=== PATIENT | female | born 1965 | race Caucasian/White ===

== ENCOUNTER 2019-05-26 19:29 | Inpatient (IN) | payer OTHER ==
[2019-05-26] MEDS ORDERED: Pantoprazole 40 MG Vial IVPUSH ONE (20:17)
[2019-05-26] MEDS: Dextrose 5%-Lactated Ringers 1,000 ML IV SCH (20:53)
[2019-05-26] MEDS: HYDROmorphone 1 MG/ML Syringe IVPUSH PRN (20:57)
[2019-05-26] MEDS: Ondansetron 4 MG/2 ML SDV IVPUSH PRN (22:20)
[2019-05-27] MEDS: Dextrose 5%-Lactated Ringers 1,000 ML IV SCH ×2 (03:19→22:59)
[2019-05-27] MEDS: HYDROmorphone 1 MG/ML Syringe IVPUSH PRN ×7 (03:23→22:55)
[2019-05-27] MEDS ORDERED: Meropenem 500 MG SDV ONE (04:59)
[2019-05-27] MEDS ORDERED: cefOXitin 2 GM in Sodium Chloride 0.9% 50 ML IV ONE (05:30)
[2019-05-27] MEDS ORDERED: Neostigmine Methylsulfate 1 MG/ML 5 ML Syringe ONE (05:45)
[2019-05-27] MEDS ORDERED: Propofol 200 MG/20 ML SDV ONE ×2 (05:45→07:00)
[2019-05-27] MEDS ORDERED: Succinylcholine 200 MG/10 ML MDV ONE (05:45)
[2019-05-27] MEDS ORDERED: Glycopyrrolate 0.2 MG/ML 5 ML MDV ONE (05:45)
[2019-05-27] MEDS ORDERED: Dexamethasone 4 MG/ML SDV ONE (05:45)
[2019-05-27] MEDS ORDERED: Ondansetron 4 MG/2 ML SDV ONE (05:45)
[2019-05-27] MEDS ORDERED: Rocuronium 50 MG/5 ML Vial ONE (05:45)
[2019-05-27] MEDS ORDERED: fentaNYL 250 MCG/5 ML SDV ONE ×2 (05:46→06:16)
[2019-05-27] MEDS ORDERED: Lactated Ringers 1,000 ML ONE (06:44)
[2019-05-27] MEDS ORDERED: Bupivacaine 0.5%/EPINEPHrine 1:200,000 50 ML MDV ONE (07:05)
[2019-05-27] MEDS ORDERED: hydrOXYzine HCl 100 MG/2 ML SDV IM ONE (07:37)
[2019-05-27] MEDS ORDERED: fentaNYL 100 MCG/2 ML SDV IVPUSH ONE ×2 (07:48→08:00)
[2019-05-27] MEDS: Ondansetron 4 MG/2 ML SDV IVPUSH PRN ×4 (08:27→22:53)
[2019-05-27] MEDS ORDERED: HYDROmorphone 0.5 MG/0.5 ML Syringe IVPUSH PRN (09:16)
[2019-05-27] MEDS ORDERED: Labetalol 20 MG/4 ML Syringe IVPUSH PRN (09:18)
[2019-05-27] MEDS ORDERED: hydrOXYzine HCl 100 MG/2 ML SDV IM PRN (09:18)
[2019-05-27] MEDS ORDERED: Metoclopramide 10 MG/2 ML SDV IVPUSH PRN (09:18)
[2019-05-27] MEDS ORDERED: diphenhydrAMINE 50 MG/ML SDV IVPUSH PRN (09:18)
[2019-05-27] MEDS ORDERED: Pantoprazole 40 MG Vial IVPUSH SCH (10:00)
[2019-05-27] MEDS: Lisinopril 10 MG Tab PO SCH (10:15)
[2019-05-27] MEDS: Magnesium Sulfate/Water 2 GM in Premix Bag 1 BAG IV SCH ×3 (10:16→22:47)
[2019-05-27] MEDS: Heparin Sodium 5,000 Units/ML Vial SUBCUT SCH ×2 (10:16→22:49)
[2019-05-27] MEDS: Celecoxib 200 MG Cap PO SCH (10:17)
[2019-05-27] MEDS: Acetaminophen 325 MG Tab PO SCH ×3 (12:21→22:49)
[2019-05-27] MEDS: cefOXitin 2 GM in Sodium Chloride 0.9% 50 ML IV SCH ×2 (12:21→18:35)
[2019-05-27] MEDS ORDERED: MVI, Adult with Vitamin K 10 ML, Thiamine 200 MG, Chromium/Copper/Mang/Selen/Zn 1 ML in... IV SCH ×4 (16:00)
[2019-05-28] MEDS: cefOXitin 2 GM in Sodium Chloride 0.9% 50 ML IV SCH (00:14)
[2019-05-28] MEDS: HYDROmorphone 1 MG/ML Syringe IVPUSH PRN ×2 (02:28→06:38)
[2019-05-28] MEDS ORDERED: Iopamidol 612 MG/ML 50 ML SDV PO STA (02:37)
[2019-05-28] MEDS: Acetaminophen 325 MG Tab PO SCH ×4 (03:28→21:01)
[2019-05-28] MEDS: Magnesium Sulfate/Water 2 GM in Premix Bag 1 BAG IV SCH ×4 (03:30→21:01)
--- NOTE | 2019-05-28 04:40 | CRLCR ---
Indication: Status post small bowel resection Technique: Three views of the abdomen obtained following the administration of oral contrast. Comparison: None available Findings/Impression : Apparent gastrojejunostomy. Contrast opacifies the distal esophagus and gastrojejunostomy, extending into a mildly prominent proximal jejunal segment. No evidence of contrast extravasation. Multiple gas-filled bowel segments which could represent ileus. If obstruction is suspected, follow-up. Small focal lucency underlying the medial right hemidiaphragm may be related to lung parenchyma or small extraluminal gas. Left lower abdominal bowel sutures. Anterior abdominal skin alba. Dictated by Raghavendra Charles MD @ 05/28/2019 4:39:40 AM Dictated by: Raghavendra Charles MD @ 05/28/2019 04:39:44 (Electronically Signed)
[2019-05-28] MEDS: Dextrose 5%-Lactated Ringers 1,000 ML IV SCH ×2 (05:14→10:35)
[2019-05-28] MEDS: Ondansetron 4 MG/2 ML SDV IVPUSH PRN (06:37)
[2019-05-28] MEDS ORDERED: Ondansetron 4 MG Tab.DIS PO PRN (08:00)
[2019-05-28] MEDS: Celecoxib 200 MG Cap PO SCH (08:26)
[2019-05-28] MEDS: Lisinopril 10 MG Tab PO SCH (08:27)
[2019-05-28] MEDS ORDERED: Hydrochlorothiazide 25 MG Tab PO SCH ×2 (09:00)
[2019-05-28] MEDS ORDERED: Lisinopril 20 MG Tab PO SCH (09:00)
[2019-05-28] MEDS: SCOPOLAMINE PATCH CHECK TOP SCH (09:39)
[2019-05-28] MEDS: HYDROmorphone 2 MG Tab PO PRN ×3 (09:49→20:59)
--- NOTE | 2019-05-28 11:20 | PN ---
DATE OF SERVICE: 05/28/2019 SUBJECTIVE: Melisa is postoperative day 1. She states her pain is controlled. She has been up ambulating. Remainder of review of systems negative for any pertinent positives and negatives. Oral intake was 780 and urine output is 1335. OBJECTIVE: GENERAL: Melisa Stark is a 54-year-old female. Color pale. Alert and orientated. VITAL SIGNS: TPR 98.3, 89, 16, blood pressure 121/69. HEENT: Negative. NECK: Supple. HEART: Regular rate and rhythm. LUNGS: Clear. ABDOMEN: Aquacel dressing intact. Abdominal binder is on. EXTREMITIES: Without peripheral edema. ASSESSMENT: Exploratory laparotomy with revision of the jejunojejunostomy. Date of surgery 05/27/2019. Surgeon, Parrish Escobar MD. PLAN: 1. Discontinue IV Dilaudid. 2. Dilaudid 2 mg, 1 to 2 every 4 hours p.r.n. pain. 3. Decrease IV to 100 mL per hour. 4. May shower. 5. Restart lisinopril 10 mg p.o. daily. 6. Hydrochlorothiazide 25 mg p.o. daily. 7. Good pulmonary toilet. 8. We will evaluate p.r.n. or in a.m. Ana Pearson PA-C /[id number]
[2019-05-28] MEDS: Heparin Sodium 5,000 Units/ML Vial SUBCUT SCH ×2 (11:24→21:00)
[2019-05-28] MEDS: Pantoprazole 40 MG Tab.CR PO SCH (11:33)
[2019-05-28] MEDS ORDERED: MVI, Adult with Vitamin K 10 ML, Thiamine 200 MG, Chromium/Copper/Mang/Selen/Zn 1 ML in... IV SCH ×4 (16:00)
[2019-05-29] MEDS: HYDROmorphone 2 MG Tab PO PRN ×4 (01:07→20:47)
[2019-05-29] MEDS: Dextrose 5%-Lactated Ringers 1,000 ML IV SCH (02:25)
[2019-05-29] MEDS: Acetaminophen 325 MG Tab PO SCH ×4 (04:46→21:30)
[2019-05-29] MEDS: Magnesium Sulfate/Water 2 GM in Premix Bag 1 BAG IV SCH ×3 (04:47→15:30)
[2019-05-29] MEDS ORDERED: Magnesium Hydroxide 400 MG/5 ML Susp 30 ML Cup PO ONE (08:00)
[2019-05-29] MEDS: Celecoxib 200 MG Cap PO SCH (08:09)
[2019-05-29] MEDS: Pantoprazole 40 MG Tab.CR PO SCH (08:09)
[2019-05-29] MEDS ORDERED: Bisacodyl 5 MG Tab PO ONE (09:00)
[2019-05-29] MEDS ORDERED: Cyanocobalamin (Vitamin B12) 1,000 MCG/ML SDV IM ONE (09:00)
--- NOTE | 2019-05-29 09:15 | PN ---
DATE OF SERVICE: 05/29/2019 SUBJECTIVE: Melisa states that her pain is controlled with oral pain medication. She has been up ambulating. Vital signs have been stable. Oral intake 1180. Urine output 2650. She is not passing any flatus. REVIEW OF SYSTEMS: Remainder of review of systems negative for any pertinent positives and negatives. OBJECTIVE: GENERAL: Melisa Stark is a pleasant 54-year-old female. VITAL SIGNS: TPR is 96.9, 82, 16. Blood pressure 88/53. HEENT: Negative. NECK: Supple. HEART: Regular rate and rhythm. LUNGS: Clear. ABDOMEN: Dressing is dry and intact. Abdominal binder is on. EXTREMITIES: Without peripheral edema. ASSESSMENT: Exploratory laparotomy with: 1. Revision of the jejunojejunostomy component of the Macy-en-Y gastric bypass surgery. 2. Placement of Interceed mesh for small bowel obstruction secondary to intussusception of the jejunojejunostomy and extensive intraabdominal adhesions. Date of surgery 05/27/2019. Surgeon, Parrish Escobar MD. PLAN: 1. Hold lisinopril. 2. Hold HCTZ. 3. Increase diet to step-2 gastric bypass diet without cereals. 4. Milk of Magnesia 30 mL. 5. Dulcolax 2 tabs 1 hour after Milk of Magnesia. 6. No straws. 7. Good pulmonary toilet. 8. We will evaluate p.r.n. or in a.m. Ana Pearson PA-C /[id number]
[2019-05-29] MEDS: SCOPOLAMINE PATCH CHECK TOP SCH (09:42)
[2019-05-29] MEDS: Heparin Sodium 5,000 Units/ML Vial SUBCUT SCH (10:05)
[2019-05-30 03:26] VITALS: PULSE 71
[2019-05-30] MEDS: Acetaminophen 325 MG Tab PO SCH (03:27)
[2019-05-30 07:57] VITALS: BP 97/62
[2019-05-30] MEDS: Celecoxib 200 MG Cap PO SCH (08:01)
[2019-05-30] MEDS: HYDROmorphone 2 MG Tab PO PRN (08:01)
[2019-05-30] MEDS: Pantoprazole 40 MG Tab.CR PO SCH (08:01)
--- NOTE | 2019-05-30 09:39 | DISCH ---
ADMISSION DIAGNOSES: 1. Partial small bowel obstruction. 2. Status post Macy-en-Y gastric bypass surgery. 3. Unspecified surgical malabsorption. 4. B12 deficiency. 5. Iron deficiency anemia. 6. Vitamin D deficiency. 7. Hypertension. DISCHARGE DIAGNOSES: Exploratory laparotomy with: 1. Revision of the jejunojejunostomy component of the Macy-en-Y gastric bypass surgery. 2. Placement of Interceed mesh for small bowel obstruction secondary to intussusception of the jejunojejunostomy and extensive intraabdominal adhesions. Date of surgery 05/27/2019. Surgeon, Parrish Escobar MD. HISTORY: Melisa is a pleasant 54-year-old female, who developed sudden onset of severe abdominal pain. She went to the nearest emergency room and was transferred to [place], [place]. After preoperative evaluation and discussion of possible risks and possible complications, she wished to proceed with surgical procedure. HOSPITAL COURSE: Surgery was on 05/27/2019. There were no complications. On postoperative day #1, she was started on oral pain medication. IV was discontinued. Lisinopril- hydrochlorothiazide was restarted. On postoperative day 2, blood pressure was low, so lisinopril and HCTZ was held, just started on step 2 diet without cereal, given milk of Mag with Dulcolax followed in 1 hour by Dulcolax suppositories. On postoperative day 3, she is ready to be discharged to home, is going to be staying with her sister. Has not had a bowel movement yet, but feels like she is passing gas and feels like she will be having a bowel movement shortly. Feels like she needs to go home due to family issues. She did agree to take some MiraLAX when she gets home and she is very compliant. PHYSICAL EXAMINATION: GENERAL: Melisa Stark is a 54-year-old female. VITAL SIGNS: Height is 5 feet 6.93 inches. TPR 97, 73, 16. Blood pressure 97/62. HEENT: Negative. NECK: Supple. HEART: Regular rate and rhythm. LUNGS: Clear. ABDOMEN: Cely intact. Abdominal binder is on. EXTREMITIES: Without peripheral edema. DISPOSITION: Discharged to home. CONDITION: Stable and improving. FOLLOWUP APPOINTMENT: With Ana Pearson PA-C, 06/08/2019 at 9:30 a.m. HOME MEDICATIONS: 1. Tylenol 650 mg q.6 hours p.r.n. pain. 2. Celebrex 200 mg p.o. daily, #14. 3. Dilaudid 2 mg oral q.4 hours p.r.n. pain, #42. Hold lisinopril and HCTZ and will need to follow up with primary care provider in regard to restarting these. She will get her blood pressure checked as needed. To continue taking probiotic one daily, magnesium oxide 400 mg daily, and stop taking the vitamins and supplements after first postoperative appointment. DIET: Step-3 gastric bypass diet after bowel movement. Drink 8 to 10 glasses of water a day. ACTIVITY: As tolerated. No lifting greater than 10 pounds for 6 weeks. DRIVING: Do not drive for 1 week and while on pain medication. SHOWER/BATHING: May shower. Notify provider if any fever, increased pain, nausea, or vomiting. Keep site clean and dry. Wear abdominal binder for 6 weeks and then as tolerated. SPECIAL INSTRUCTION: 1. Use incentive spirometer 10 times every hour while awake for 1 week. 2. Take MiraLAX 119 g when you get home. If no BM, then repeat at night.
--- NOTE | 2019-06-04 13:38 | OR ---
DATE OF PROCEDURE: 05/27/2019 SURGEON: Parrish Escobar MD PREOPERATIVE DIAGNOSES: 1. Small bowel obstruction secondary to intussusception at jejunojejunostomy component of Macy-en-Y gastric bypass. 2. Extensive intraabdominal adhesions. OPERATIVE PROCEDURE: Exploratory laparotomy with: 1. Revision of jejunojejunostomy component of Macy-en-Y gastric bypass (59505). 2. Placement of Interceed mesh to limit recurrent adhesion formation between pelvic, abdominal wall, and underlying viscera (63548). ANESTHESIA: General. INDICATION FOR PROCEDURE: This is a 54-year-old status post previous Macy-en-Y gastric bypass, presenting with chronic crampy abdominal pain in the postprandial period, along with bloating. Overall picture is highly suggestive of a partial small bowel obstruction. The plan is to proceed with limited open laparotomy with lysis of adhesions and bowel resection as indicated. Potential risks including bleeding, infection, injury to underlying viscera, problems with symptoms of bowel obstruction recurring, as well as remote possibility of cardiopulmonary, septic, or hemorrhagic complications leading to were discussed, and the patient wishes to proceed. DETAILS OF PROCEDURE: The patient was taken to the operating room. After general endotracheal anesthesia was induced, a Oquendo catheter was inserted, and the abdomen prepped and draped. An upper midline incision from the umbilicus roughly a handsbreadth toward the umbilicus was made and carried down through the skin and subcutaneous tissue and through the full-thickness of the abdominal wall. Upon entering the peritoneal cavity, there were some scattered adhesions between the anterior abdominal wall, omentum, and some small bowel. These were taken down. When I inspected the small bowel anatomy, the area of the jejunojejunostomy related to the previous Macy-en-Y gastric bypass was markedly dilated and appeared to likely have been undergoing intermittent intussusception and resulted in considerable edema and dilation of the bowel at that level. At this point, the decision was made to proceed with revision of that anastomosis. The 3 components of the anastomosis were then divided with SHEKHAR alba, as was the underlying mesentery. At this point, GI tract continuity via revised jejunojejunostomy was accomplished with initial internal firing of the SHEKHAR stapler between the end of the bowel that had been the biliopancreatic limb to the common limb. This was accomplished with internal firing of 60 mm SHEKHAR stapler. Common opening was closed transversely with the same stapler. The angles were anastomosed and mesenteric defect was approximated with 3-0 Vicryl stitch. GI tract continuity was then reestablished with a second anastomosis roughly 20 cm distal to the first anastomosis between the end of the Macy limb. This was accomplished with [id number] enteroenterostomy with 60 mm stapler, and the common opening likewise closed transversely with the same stapler. The angle of anastomosis and mesenteric defect were closed with 3-0 Vicryl stitch at the angle of the anastomosis and 2-0 silk stitch at the mesenteric defect to provide more permanency and further that fixation. The overall limb lengths did not change significantly with the jejunojejunostomy being, from a functional standpoint, moved only around 20 cm distal to the biliopancreatic limb/common limb junction. At this point, there were no further problems noted. There was no omentum to place underneath the pelvis and abdominal wall. Given this, the Interceed mesh was then placed across those areas to displace the small bowel from those surfaces to limit recurrent adhesion formation. The midline fascia was then approximated with #2 Vicryl stitch, subcutaneous tissue approximated with 3-0 Vicryl stitch deep and a 4-0 Vicryl subdermal stitch, and the skin with alba. Intraoperatively, the patient received bilateral transversus abdominis plane blocks, and also then had the fascia at the incision line injected with 0.5% Marcaine mixed with lidocaine. The patient was taken to the recovery room in satisfactory condition. There were no evident complications. Parrish Escobar MD /[id number]
== END 2019-05-30 10:50 | disposition home or self-care (01) | DRG 327 ==
LOC: JP.MS 19:29
PROVIDERS: ADMIT Surgery; ATTEND Physician Assistant Medical
PROC: 0D160ZA Bypass Stomach to Jejunum, Open Approach (ICD-10-PCS; principal; 2019-05-27)
PROC: 0DNW0ZZ Release Peritoneum, Open Approach (ICD-10-PCS; 2019-05-27)
PROC: 3E0M05Z Introduction of Adhesion Barrier into Peritoneal Cavity, Open Approach (ICD-10-PCS; 2019-05-27)
DX: K94.19 Other complications of enterostomy (principal); K56.1 Intussusception; K56.51 Intestinal adhesions [bands], with partial obstruction; K91.2 Postsurgical malabsorption, not elsewhere classified; E55.9 Vitamin D deficiency, unspecified; E53.8 Deficiency of other specified B group vitamins; D50.9 Iron deficiency anemia, unspecified; I10 Essential (primary) hypertension; Z98.84 Bariatric surgery status; Z87.891 Personal history of nicotine dependence; Z79.899 Other long term (current) drug therapy
CPT/HCPCS: 36415; 74240; 80053; 84100; 85025; 88307; 94762; A9270-GY; C9113; J0131; J0171; J0330; J0694; J1100; J1170; J1644; J2020; J2185; J2405; J2704; J2710; J2795; J3010; J3410; J3411; J3420; J3475; J3490; J7042; J7050; J7120; Q9967

== ENCOUNTER 2019-07-02 18:55 | Observation (INO) | payer OTHER ==
[2019-07-02] MEDS ORDERED: HYDROmorphone 0.5 MG/0.5 ML Syringe IVPUSH ONE ×2 (19:53→20:31)
[2019-07-02] MEDS ORDERED: Ondansetron 4 MG/2 ML SDV IVPUSH ONE (19:53)
[2019-07-02] MEDS ORDERED: Sodium Chloride 0.9% 1,000 ML IV SCH (20:00)
--- NOTE | 2019-07-02 20:01 | EDM.PDOC ---
ED HPI GENERAL MEDICAL PROBLEM - General Chief Complaint: Abdominal Pain Stated Complaint: SEVERE ABD PAIN POST SURGERY Time Seen by Provider: 07/02/19 19:45 Source of Information: Reports: Patient History Limitations: Reports: No Limitations - History of Present Illness INITIAL COMMENTS - FREE TEXT/NARRATIVE: 54-year-old female with a history of gastric bypass in 2013, had done well but developed abdominal pain one month ago and underwent surgery. She did well postoperatively until the last 2-3 days where she said an increased amount of pain, distention, and nausea. It's worse when she eats. She is still having bowel movements. Denies fevers or chills or difficulty breathing. Onset: Gradual Duration: Day(s): (Pain is worsened over the past 3-4 days) Location: Reports: Abdomen Quality: Reports: Ache, Pressure Improves with: Reports: None Worsens with: Reports: Eating, Movement Associated Symptoms: Reports: Loss of Appetite, Nausea/Vomiting. Denies: Shortness of Breath, Weakness Lower Abdomen Pain Score (Numeric/FACES): 7 - Related Data Allergies Allergy/AdvReac Type Severity Reaction Status Date / Time No Known Allergies Allergy Verified 09/06/15 07:33 Home Meds: Home Meds L.acidoph,Paracasei, B.lactis [Probiotic] 1 each PO DAILY 05/26/19 [History] Magnesium Oxide 400 mg PO DAILY 05/26/19 [History] Acetaminophen [Tylenol] 650 mg PO Q6H tablet 05/30/19 [Rx] Celecoxib [CeleBREX] 200 mg PO DAILY@0800 #14 cap 05/30/19 [Rx] HYDROmorphone [Dilaudid] 2 mg PO Q4H PRN #42 tablet 05/30/19 [Rx] Ascorbic Acid [Vitamin C] 500 mg PO DAILY 07/02/19 [History] Cholecalciferol (Vitamin D3) [Vitamin D] 5,000 unit PO DAILY 07/02/19 [History] Naltrexone 50 mg PO TID 07/02/19 [History] buPROPion [Wellbutrin] 75 mg PO TID 07/02/19 [History] Past Medical History HEENT History: Reports: Cataract Cardiovascular History: Reports: Hypertension Respiratory History: Reports: None Gastrointestinal History: Reports: Celiac Disease, Chronic Diarrhea Other Gastrointestinal History: RECENT DIAGNOSIS GLUTEN ALLERGY Genitourinary History: Reports: None [employer] History: Reports: Musculoskeletal History: Reports: Osteoarthritis - Infectious Disease History Infectious Disease History: Reports: Chicken Pox, Measles, Mumps - Past Surgical History HEENT Surgical History: Reports: None GI Surgical History: Reports: Bariatric Procedure Social & Family History - Family History Family Medical History: Noncontributory - Tobacco Use Smoking Status *Q: Former Smoker Used Tobacco, but Quit: Yes Month/Year Tobacco Last Used: 30 years ago - Caffeine Use Caffeine Use: Reports: Coffee Caffeine Use Comment: 2 pots of coffee - Recreational Drug Use Recreational Drug Use: No ED ROS GENERAL - Review of Systems Review Of Systems: See Below Constitutional: Denies: Fever, Chills HEENT: Reports: No Symptoms Respiratory: Denies: Shortness of Breath Cardiovascular: Denies: Chest Pain GI/Abdominal: Reports: Abdominal Pain, Nausea. Denies: Diarrhea, Vomiting : Reports: No Symptoms Skin: Reports: No Symptoms Neurological: Reports: No Symptoms ED EXAM, GI/ABD - Physical Exam Exam: See Below Exam Limited By: No Limitations General Appearance: Alert, Mild Distress Eyes: Bilateral: Normal Appearance (No jaundice) Head: Atraumatic Respiratory/Chest: No Respiratory Distress, Lungs Clear Cardiovascular: Regular Rate, Rhythm GI/Abdominal Exam: Tender (Diffuse tenderness to palpation with guarding), Abnormal Bowel Sounds (Hypoactive bowel sounds) Extremities: No Pedal Edema Neurological: Alert, Oriented Psychiatric: Anxious Skin Exam: Warm, Dry Course - Vital Signs Last Recorded V/S: Last Vital Signs Temp 96.7 F 07/03/19 03:09 Pulse 83 07/03/19 03:09 Resp 18 07/03/19 03:09 BP 102/64 07/03/19 03:09 Pulse Ox 92 L 07/03/19 03:09 - Orders/Labs/Meds Orders: Active Orders 24 hr Category Date Time Status Sodium Chloride 0.9% [Normal Saline] 82 ml Med 07/02/19 20:45 Active IV ASDIRECTED Medication Orders Hydromorphone HCl (Dilaudid) 1 mg IVPUSH Q4H PRN PRN Reason: Pain Last Admin: 07/03/19 03:07 Dose: 1 mg Admin: 07/02/19 23:41 Dose: 1 mg Sodium Chloride (Normal Saline) 82 mls @ 3 mls/sec IV ASDIRECTED [facility]ENIE Last Admin: 07/02/19 20:49 Dose: 3 mls/sec Dextrose/Lactated Ringer's (Dextrose 5%-Lactated Ringers) 1,000 mls @ 150 mls/ hr IV ASDIRECTED [facility] Metoclopramide HCl (Reglan) 10 mg IVPUSH Q6H [facility] Last Admin: 07/02/19 23:41 Dose: 10 mg Ondansetron HCl (Zofran) 4 mg IV Q4H PRN PRN Reason: Nausea/Vomiting Pantoprazole Sodium (Protonix Iv) 40 mg IVPUSH Q12H [facility] Last Admin: 07/02/19 23:42 Dose: 40 mg Labs: Laboratory Tests 07/02/19 07/02/19 Range/Units 19:54 19:54 WBC 7.6 (4.5-11.0) K/uL RBC 3.65 (3.30-5.50) M/uL Hgb 11.2 L (12.0-15.0) g/dL Hct 35.4 L (36.0-48.0) % MCV 97 (80-98) fL MCH 31 (27-31) pg MCHC 32 (32-36) % Plt Count 96 L (150-400) K/uL Neut % (Auto) 36 (36-66) % Lymph % (Auto) 29 (24-44) % Foard % (Auto) 33 H (2-6) % Eos % (Auto) 3 (2-4) % Baso % (Auto) 0 (0-1) % Sodium 139 L (140-148) mmol/L Potassium 4.0 (3.6-5.2) mmol/L Chloride 104 (100-108) mmol/L Carbon Dioxide 23 (21-32) mmol/L Anion Gap 16.0 H (5.0-14.0) mmol/L BUN 19 H D (7-18) mg/dL Creatinine 0.7 (0.6-1.0) mg/dL Est Cr Clr Drug Dosing 87.27 mL/min Estimated GFR (MDRD) > 60 (>60) Glucose 91 (74-106) mg/dL Calcium 9.1 (8.5-10.1) mg/dL Total Bilirubin 0.5 (0.2-1.0) mg/dL AST 18 (15-37) U/L ALT 27 (12-78) U/L Alkaline Phosphatase 90 (46-116) U/L Total Protein 7.6 (6.4-8.2) g/dL Albumin 4.1 (3.4-5.0) g/dL Globulin 3.5 (2.3-3.5) g/dL Albumin/Globulin Ratio 1.2 (1.2-2.2) Lipase 103 (73-393) U/L Meds: Medications Generic Name Dose Route Start Last Admin Trade Name Forrest PRN Reason Stop Dose Admin Hydromorphone HCl 1 mg 07/02/19 23:12 07/03/19 03:07 Dilaudid IVPUSH 1 mg Q4H PRN Administration Pain Sodium Chloride 82 mls @ 3 mls/sec 07/02/19 20:45 07/02/19 20:49 Normal Saline IV 3 mls/sec ASDIRECTED [facility]EN[facility] Administration Dextrose/Lactated Ringer's 1,000 mls @ 150 mls/hr 07/02/19 23:15 Dextrose 5%-Lactated Ringers IV ASDIRECTED [facility] Metoclopramide HCl 10 mg 07/02/19 23:15 07/02/19 23:41 Reglan IVPUSH 10 mg Q6H [facility] Administration Ondansetron HCl 4 mg 07/02/19 23:07 Zofran IV Q4H PRN Nausea/Vomiting Pantoprazole Sodium 40 mg 07/02/19 23:15 07/02/19 23:42 Protonix Iv IVPUSH 40 mg Q12H [facility] Administration Discontinued Medications Generic Name Dose Route Start Last Admin Trade Name Forrest PRN Reason Stop Dose Admin Hydromorphone HCl 0.5 mg 07/02/19 19:53 07/02/19 20:06 Dilaudid IVPUSH 07/02/19 19:54 0.5 mg ONETIME ONE Administration Hydromorphone HCl 0.5 mg 07/02/19 20:31 07/02/19 20:35 Dilaudid IVPUSH 07/02/19 20:32 0.5 mg ONETIME ONE Administration Hydromorphone HCl 1 mg 07/02/19 21:18 07/02/19 21:23 Dilaudid IVPUSH 07/02/19 21:19 1 mg ONETIME ONE Administration Sodium Chloride 1,000 mls @ 500 mls/hr 07/02/19 20:00 07/02/19 20:05 Normal Saline IV 500 mls/hr ASDIRECTED [facility]ENIE Administration Iopamidol 138 ml 07/02/19 20:45 07/02/19 20:49 Isovue-300 (61%) IV 150 ml . DIRECTED QUEENIE Administration Ketorolac Tromethamine 30 mg 07/02/19 22:19 07/02/19 22:23 Toradol IVPUSH 07/02/19 22:20 30 mg ONETIME ONE Administration Ondansetron HCl 4 mg 07/02/19 19:53 07/02/19 20:06 Zofran IVPUSH 07/02/19 19:54 4 mg ONETIME ONE Administration Sodium Chloride 10 ml 07/02/19 20:33 07/02/19 20:49 Saline Flush FLUSH 07/02/19 20:34 10 ml ONETIME ONE Administration - Re-Assessments/Exams Free Text/Narrative Re-Assessment/Exam: 07/02/19 20:01 An IV was started, patient was given 0.5 mg of IV Dilaudid along with 4 mg of IV Zofran. CBC, CMP, lipase were obtained and the patient will get a CT scan of the abdomen possibly with contrast if kidney function is normal. 07/02/19 20:27 Labs returned reassuring, medications really didn't help with the pain much. She was given an additional 0.5 mg of IV Dilaudid and will be sent for an abdomen and pelvis CT with IV contrast. 07/02/19 21:41 CT shows prominent small bowel loops indicating a possible adynamic ileus. An additional 1 mg of IV Dilaudid was given, and Ana Pearson who is covering the surgical service of Dr. Pepito Escobar accepted her for admission. Departure - Departure Time of Disposition: 23:12 Disposition: Admitted As Inpatient 64 Condition: Fair Clinical Impression: Ileus, unspecified Abdominal pain Qualifiers: Abdominal location: generalized Qualified Code(s): R10.84 - Generalized abdominal pain - Discharge Information - My Orders Last 24 Hours: My Active Orders 07/02/19 20:45 Sodium Chloride 0.9% [Normal Saline] 82 ml IV ASDIRECTED - Assessment/Plan Last 24 Hours: My Active Orders 07/02/19 20:45 Sodium Chloride 0.9% [Normal Saline] 82 ml IV ASDIRECTED
[2019-07-02] MEDS: Sodium Chloride 0.9% 10 ML Syringe FLUSH ONE ×2 (20:36→20:49)
[2019-07-02] MEDS ORDERED: Iopamidol 612 MG/ML 150 ML Bottle IV SCH (20:45)
[2019-07-02] MEDS ORDERED: HYDROmorphone 1 MG/ML Syringe IVPUSH ONE (21:18)
--- NOTE | 2019-07-02 21:33 | CRLCT ---
INDICATION: Abdominal pain TECHNIQUE: Contrast enhanced helical CT of the abdomen pelvis with the intravenous administration 138 cc of Isovue -350. Sagittal and coronal reformats generated. COMPARISON: None. FINDINGS: 5 mm pulmonary nodule in the middle lobe. (Series 2, image 1). The liver, mildly prominent spleen and pancreas are unremarkable. No adrenal abnormalities are seen. Areas of cortical scarring or lobulation involving both kidneys with no solid mass is apparent. The nephrograms are symmetrical. The abdominal is normal in caliber. Prior gastric bypass. Considerably distended gallbladder without calculi appreciated. Formed stool is present within the colon. There are multiple fluid filled mildly prominent loops of small bowel which may indicate an adynamic ileus. No bladder masses are seen. Postoperative changes of the anterior abdominal wall. No suspicious osseous finding IMPRESSION: 1. Prior gastric bypass. There are prominent fluid-filled loops of small bowel which may be indicative of a generalized ileus. Repeat examination with oral contrast media may be beneficial in this regard. 2. Considerably distended gallbladder without calculi. If there are clinical findings suggest cholecystitis, consider gallbladder ultrasound. 3. 5 millimeter indeterminate pulmonary nodule in the middle lobe. In a low risk patient, no further workup is recommended. In a high risk patient, consider optional chest CT at 12 months. PLEASE NOTE THAT ALL CT SCANS AT THIS FACILITY USE DOSE MODULATION, ITERATIVE RECONSTRUCTION, AND/OR WEIGHT-BASED DOSING WHEN APPROPRIATE TO REDUCE RADIATION TO LOW REASONABLY ACHIEVABLE. Please note that all CT scans at this facility use dose modulation, iterative reconstruction, and/or weight-based dosing when appropriate to reduce radiation dose to as low as reasonably achievable. Dictated by Kendall Enriquez MD @ Jul 02 2019 9:20PM Signed by Dr. Kendall Enriquez @ Jul 02 2019 9:31PM
[2019-07-02] MEDS ORDERED: Ketorolac 30 MG/ML SDV IVPUSH ONE (22:19)
[2019-07-02] MEDS ORDERED: Ondansetron 4 MG/2 ML SDV IV PRN (23:07)
[2019-07-02] MEDS ORDERED: Pantoprazole 40 MG Vial IVPUSH SCH (23:15)
[2019-07-02] MEDS: Metoclopramide 10 MG/2 ML SDV IVPUSH SCH (23:41)
[2019-07-02] MEDS: HYDROmorphone 1 MG/ML Syringe IVPUSH PRN (23:41)
[2019-07-03] MEDS: HYDROmorphone 1 MG/ML Syringe IVPUSH PRN (03:07)
[2019-07-03] MEDS: Metoclopramide 10 MG/2 ML SDV IVPUSH SCH ×4 (04:48→23:35)
--- NOTE | 2019-07-03 05:28 | CRLCR ---
Indication: Small-bowel obstruction Technique: KUB 2 view Comparison: CT abdomen pelvis July 02, 2019 Findings/Impression: : Several loops of dilated small bowel reach maximum diameter 4.9 cm. Findings are concerning for small bowel obstruction. No free air pneumatosis. Residual intravenous contrast within the urinary tract collecting system. Dictated by Tricia Alvarado MD @ Jul 03 2019 5:24AM Signed by Dr. Tricia Alvarado @ Jul 03 2019 5:27AM
[2019-07-03] MEDS: Dextrose 5%-Lactated Ringers 1,000 ML IV SCH ×4 (06:16→21:22)
[2019-07-03] MEDS ORDERED: Acetaminophen 1,000 MG in Premix Bag 1 BAG IV ONE (09:00)
--- NOTE | 2019-07-03 09:39 | HP ---
CHIEF COMPLAINT: Melisa presented to the emergency room late last evening for severe abdominal pain, and the mid abdominal pain radiated to the left and radiated to the right mid abdominal quadrant. Pain started Saturday night, 06/29/2019, and occurred after eating. She became very "burpy," bloated, and severe sharp abdominal pain. If she did not eat, she had no pain, but as soon as eating even a small amount, she would develop this pain. Pain gradually increased to the point that it brought her into the emergency room last evening. HISTORY OF PRESENT ILLNESS: Melisa had an exploratory laparotomy with revision of jejunojejunostomy component of the Macy-en-Y gastric bypass and placement of Interceed mesh to limit recurrent adhesion formation between the pelvic and abdominal wall and underlying viscera for small bowel obstruction secondary to intussusception at the jejunojejunostomy component of the Macy-en-Y gastric bypass surgery and extensive intraabdominal adhesions. Date of surgery was 05/27/2019. Surgeon, Parrish Escobar M.D. Melisa states since her surgery, she did well, had no pain, bowel movements have been 2 per day, and denied any other associated signs and symptoms until 06/29/2019. PAST MEDICAL HISTORY: Includes Macy-en-Y gastric bypass surgery, unspecified surgical malabsorption, B12 deficiency, iron deficiency anemia, hypertension, celiac disease, allergy to gluten, and osteoarthritis. PAST SURGICAL HISTORY: Includes Macy-en-Y gastric bypass surgery. FAMILY HISTORY: Noncontributory. SOCIAL HISTORY: Single. Does not smoke. Alcohol, none; and quit smoking 30 years ago. REVIEW OF SYSTEMS: CONSTITUTIONAL: Denies any fever, chills, or night sweats, but does report fatigue. No weight loss. HEENT: Negative. RESPIRATORY: No cough. CARDIOVASCULAR: Denies any chest pain, shortness of breath, or fast or irregular heartbeat. No swelling in ankles or feet. : No UTI signs or symptoms. SKIN: No rash. NEURO: No headache, dizziness, or loss of coordination. PSYCHIATRIC: Controlled depression and anxiety. PHYSICAL EXAMINATION: GENERAL: Melisa is a pleasant 54-year-old female. VITAL SIGNS: Height is 5 feet 7 inches, weight is 202 pounds. BMI is 31. TPR is 96.7, 83, 18. Blood pressure is 102/64. HEENT: Negative. NECK: Supple. HEART: Regular rate and rhythm. LUNGS: Clear. ABDOMEN: Tenderness is noted in the left mid abdominal area radiating to the right mid; has the most pain on palpation, but she has generalized tenderness in all 4 quadrants. No extensive bloating is noted. EXTREMITIES: Without peripheral edema. NEURO: Intact. PSYCHIATRIC: Mood and affect appropriate. ASSESSMENT: Partial small bowel obstruction. PLAN: Dr. Juancho Lopez, surgeon, was consulted. He will evaluate and resume care today to check (DICTATION ENDS HERE) Ana Pearson PA-C /[id number]
[2019-07-03] MEDS ORDERED: fentaNYL 250 MCG/5 ML SDV ONE (10:15)
[2019-07-03] MEDS ORDERED: Rocuronium 50 MG/5 ML Vial ONE (10:16)
[2019-07-03] MEDS ORDERED: Ondansetron 4 MG/2 ML SDV ONE (10:16)
[2019-07-03] MEDS ORDERED: Glycopyrrolate 0.2 MG/ML 5 ML MDV ONE (10:16)
[2019-07-03] MEDS ORDERED: Neostigmine Methylsulfate 1 MG/ML 5 ML Syringe ONE (10:16)
[2019-07-03] MEDS ORDERED: Succinylcholine 200 MG/10 ML MDV ONE (10:16)
[2019-07-03] MEDS ORDERED: Dexamethasone 4 MG/ML SDV ONE (10:16)
[2019-07-03] MEDS ORDERED: Propofol 200 MG/20 ML SDV ONE (10:16)
[2019-07-03] MEDS ORDERED: Bupivacaine 0.5%/EPINEPHrine 1:200,000 50 ML MDV ONE (11:07)
[2019-07-03] MEDS: Pantoprazole 40 MG Vial IVPUSH SCH ×2 (11:22→23:36)
[2019-07-03] MEDS ORDERED: Ketorolac 60 MG/2 ML SDV ONE (12:14)
[2019-07-03] MEDS ORDERED: hydrOXYzine HCl 100 MG/2 ML SDV IM ONE (12:47)
[2019-07-03] MEDS ORDERED: Acetaminophen/HYDROcodone 325-5 MG Tab PO PRN (12:48)
--- NOTE | 2019-07-03 13:22 | PN ---
DATE OF SERVICE: 07/03/2019 SUBJECTIVE: The patient is unchanged. With respect to her abdominal pain, she states that it is masked by the narcotics, however, is still present. She is passing very small to no amount of gas. OBJECTIVE: VITAL SIGNS: Stable. CARDIOVASCULAR: Regular rhythm and rate. RESPIRATORY: Lungs are clear to auscultation bilaterally. ABDOMEN: Little pain with palpation. PLAN: To the operating room for diagnostic laparoscopy. Please see operating room note for further details. We discussed risks, benefits, alternatives, and limitations. Juancho Lopez MD /[id number]
--- NOTE | 2019-07-03 13:36 | OR ---
DATE OF PROCEDURE: 07/03/2019 SURGEON: Juancho Lopez MD PROCEDURE: Transversus abdominis plane block bilaterally. COMPLICATIONS: None. TALCER: None. RISKS: Risks, benefits, alternatives, and limitations including, not limited to infection, bleeding, injury to abdominal structures were explained to the patient, who wished to proceed. PROCEDURE IN DETAIL: The patient was placed in a supine position. The right side was addressed first. Using 11 megahertz ultrasound probe, the transversus plane was readily identified and the entire contents were injected in this area. Left side was then performed in a same manner, same fashion, same technique, in the same sequence using the same equipment, except for different needle and syringe. The patient tolerated the procedure well. Juancho Lopez MD /[id number]
--- NOTE | 2019-07-03 13:37 | CONS ---
DATE OF SERVICE: 07/02/2019 REFERRING PHYSICIAN: CONSULTING PHYSICIAN: Juancho Lopez MD REASON FOR CONSULTATION: Abdominal pain. HISTORY OF PRESENT ILLNESS: This is a pleasant 54-year-old female who presents to the emergency room with abdominal pain, which is quite diffuse. The patient is having bowel movements. However, her abdominal pain, states this is very similar to her previous internal hernia pain. This is made worse by eating. The patient has recently had small bowel obstruction secondary to intussusception on 05/27/2019. PAST MEDICAL HISTORY: Macy-en-Y, B12 deficiency, iron deficiency anemia, hypertension, history of celiac sprue disease, osteoarthritis, history of mesh placement, adhesions, and other health issues not listed here. SOCIAL HISTORY: She does not smoke. REVIEW OF SYSTEMS: GENERAL: Appropriate for condition. HEENT: No recent upper respiratory tract infections. RESPIRATORY: No shortness of breath. CARDIOVASCULAR: No history of myocardial infarction. GASTROINTESTINAL: As above. GENITOURINARY: No dysuria. NEUROLOGIC: No deficits. PSYCH: History of depression and anxiety. PHYSICAL EXAMINATION: VITAL SIGNS: Temperature 95.5, blood pressure 110/67, respirations 18, and 100% on room air. GENERAL: The patient is resting comfortably. HEENT: Pupils are equal. NECK: Supple. LUNGS: Clear. ABDOMEN: Pain with palpation, mid abdomen. Positive rebound. Positive guarding. EXTREMITIES: Full range of motion. Strength 5/5. NEUROLOGIC: Oriented x3. PSYCH: No gross depression. IMAGING: A CT scan, which I did review, which suggested small bowel obstruction versus ileus. LABORATORY RESULTS: Show normal white blood cell count and normal basic metabolic panel, except for a slightly low . ASSESSMENT: Probable small bowel obstruction. PLAN: The patient will be taken to the operating room for diagnostic laparoscopy. We discussed risks, benefits, alternatives, and limitations including, but not limited to an open surgery, possibility of small bowel resection, enterotomies, leaks, revision of Macy-en- Y components, open surgery, and other risks not listed here. The patient understands these risks and wishes to proceed. Juancho Lopez MD /[id number]
--- NOTE | 2019-07-03 15:33 | OR ---
DATE OF PROCEDURE: 07/03/2019 SURGEON: Juancho Lopez MD PROCEDURES: 1. Lysis of adhesions obstructing mid ileum (32104). 2. Drainage of peritoneal fluid collection, approximately 200 mL, right mid abdomen, (08007). 3. Repair of serosal injury secondary to adhesions (54812). COMPLICATIONS: None. SECURITY OPERATIONS CENTER OPERATOR: None. ANESTHESIA: General. RISKS: Risks, benefits, alternatives, and limitations including, but not limited to infection, bleeding, injury to abdominal structures such as bowel perforation, requirement for open surgery, cardiovascular compromise, and other risks not listed here were explained to the patient, who wished to proceed. PROCEDURE IN DETAIL: The patient was placed in supine position. In the right abdomen, a Veress needle was used through a 12-mm incision, and the drop test was performed without abnormality. The abdomen was subsequently insufflated. This was followed by an Optiview trocar. No evidence of enterotomy or injury was noted during the entry. Two additional 5 mm ports were entered under direct visualization. The bowel was ran in a retrograde fashion from the cecum. Approximately the junction between the mid third and distal one-third of the ileum, an adhesion was noted causing herniation and then strangulation of the small bowel. This was an obvious transition point with nondilated bowel distal and significantly displaced the bowel proximal to this adhesion. This was removed with Harmonic scalpel. It was noted that there was a small injury to the serosa in this area, which was probably due to the strangulation aspect. This was then sutured with interrupted Vicryl sutures in a transverse-type fashion and Tisseel would be applied to this. The bowel was inspected and no other abnormalities were noted, except in the right mid abdomen, there was very large fluid collection. This was cultured, removed and irrigated. No other abnormalities were noted. The air was removed. The wounds were closed with 3-0 Vicryl and 4-0 Vicryl in interrupted running fashion. The patient did very well. Juancho Lopez MD /[id number]
[2019-07-04] MEDS: Dextrose 5%-Lactated Ringers 1,000 ML IV SCH (04:06)
[2019-07-04] MEDS: Metoclopramide 10 MG/2 ML SDV IVPUSH SCH (04:11)
[2019-07-04 08:02] VITALS: BP 121/74; PULSE 89
--- NOTE | 2019-07-04 11:10 | DISCH ---
DISCHARGE DIAGNOSIS: Diagnostic laparoscopy with lysis of adhesions. SUMMARY OF HOSPITAL COURSE: A pleasant female who underwent a recent surgery within the last approximately one month. The patient returned with abdominal pain which was quite intense. She went to the operating room for diagnostic laparoscopy. Patient noted to have a band of adhesion obstructing the ileum. This was transected. There is a small area of serosal injury due to the tourniquet effect of the one specific band. This was a serosal type injury, not full thickness. This showed excellent vascular viability. A single Vicryl stitch was used to imbricate this slightly and reinforce it. Tisseel was also used. On postop day #1, the patient states she has no pain. Her preoperative pain which is intermittent, which was 9/10, is now completely gone. She states she is passing large amount of gas and is going to the bathroom to have a bowel movement. FOLLOWUP: The patient will follow up with me in 7 to 14 days. DISCHARGE MEDICATIONS: Same as she was on. ACTIVITY: No lifting greater than 30 pounds x30 days.
--- NOTE | 2019-07-04 11:19 | PN ---
DATE OF SERVICE: 07/04/2019 SUBJECTIVE: The patient is doing very well. Pain is well controlled. No nausea, vomiting, shortness of breath, or chest pain. Passing large amount of gas. The patient just is going to have a bowel movement shortly. OBJECTIVE: VITAL SIGNS: Vital signs are stable. CARDIOVASCULAR: Regular rhythm and rate. RESPIRATORY: Lungs are clear to auscultation bilaterally. ABDOMEN: The incision is healing well. ASSESSMENT: Status post lysis of adhesions. PLAN: The patient will be discharged today. Please see discharge summary for further details. Juancho Lopez MD /[id number]
== END 2019-07-04 10:09 | disposition home or self-care (01) ==
LOC: JP.ED 18:55 → JP.MS 23:07
PROVIDERS: ADMIT Surgery; ATTEND Physician Assistant Medical
DX: K56.600 Partial intestinal obstruction, unspecified as to cause (principal); E53.8 Deficiency of other specified B group vitamins; D50.9 Iron deficiency anemia, unspecified; I10 Essential (primary) hypertension; M19.90 Unspecified osteoarthritis, unspecified site; Z98.84 Bariatric surgery status; Z91.018 Allergy to other foods; Z79.899 Other long term (current) drug therapy; Z87.891 Personal history of nicotine dependence
CPT/HCPCS: 36415; 44180; 44227; 49020; 74019; 74177; 80053; 83690; 85025; 87070; 87075; 87205; 96361; 96374; 96375; 96376; 99285; A9270; C9113; G0378; J0131; J0171; J0330; J1100; J1170; J1885; J2405; J2704; J2710; J2765; J2795; J3010; J3410; J3490; J7030; J7042; J7050

== ENCOUNTER 2020-12-14 16:59 | Inpatient (IN) | payer OTHER ==
[2020-12-14] MEDS ORDERED: fentaNYL 100 MCG/2 ML SDV IVPUSH ONE ×3 (17:27→21:19)
[2020-12-14] MEDS ORDERED: Lactated Ringers 1,000 ML IV ONE (17:27)
[2020-12-14] MEDS ORDERED: Ondansetron 4 MG/2 ML SDV IVPUSH ONE (17:27)
[2020-12-14] MEDS ORDERED: Sodium Chloride 0.9% 10 ML Syringe FLUSH PRN (17:28)
[2020-12-14] MEDS ORDERED: Sodium Chloride 0.9% 10 ML Syringe FLUSH ONE (18:06)
--- NOTE | 2020-12-14 18:09 | EDM.PDOC ---
ED HPI GENERAL MEDICAL PROBLEM - General Chief Complaint: Abdominal Pain Stated Complaint: ABD PAIN Time Seen by Provider: 12/14/20 17:43 Source of Information: Reports: Patient, Old Records History Limitations: Reports: No Limitations - History of Present Illness INITIAL COMMENTS - FREE TEXT/NARRATIVE: Melisa is a 55-year-old female presenting to the ED with acute onset of mid abdominal pain starting this morning when she awoke. The patient has had difficulty with bowel movement, nausea and vomiting, abdominal distention, and worsening mid abdominal pain. She has been unable to keep down fluids or solids. She has a history of a prior Macy-en-Y gastric [place] [address] Escobar. She has a history of a small bowel obstruction requiring surgical intervention with Dr. Lopez in May 2020. She states the symptoms are very similar to when she had a small bowel obstruction in May. She denies any fever or chills, cough or shortness of breath, chest or back pain. - Related Data Allergies Allergy/AdvReac Type Severity Reaction Status Date / Time No Known Allergies Allergy Verified 12/14/20 17:16 Home Meds: Home Meds L.acidoph,Paracasei, B.lactis [Probiotic] 1 each PO DAILY 05/26/19 [History] Magnesium Oxide 400 mg PO DAILY 05/26/19 [History] Ascorbic Acid [Vitamin C] 500 mg PO DAILY 07/02/19 [History] Cholecalciferol (Vitamin D3) [Vitamin D] 5,000 unit PO DAILY 07/02/19 [History] Naltrexone 50 mg PO TID 07/02/19 [History] buPROPion [Wellbutrin] 75 mg PO TID 07/02/19 [History] Glucosam/Chond/Collagen/Hyalur [Glucosamine Chondroitin] 1 cap PO BID 12/14/20 [History] Past Medical History HEENT History: Reports: Cataract Other HEENT History: glasses Cardiovascular History: Reports: Hypertension Other Cardiovascular History: no meds Respiratory History: Reports: None Gastrointestinal History: Reports: Celiac Disease, Chronic Diarrhea Other Gastrointestinal History: RECENT DIAGNOSIS GLUTEN ALLERGY Genitourinary History: Reports: None SOLAR POWER INSTALLER History: Reports: Other SOLAR POWER INSTALLER History: Musculoskeletal History: Reports: Osteoarthritis - Infectious Disease History Infectious Disease History: Reports: Chicken Pox, Measles, Mumps - Past Surgical History HEENT Surgical History: Reports: None GI Surgical History: Reports: Bariatric Procedure, Lysis of Adhesions Other GI Surgeries/Procedures: [place] Y 2013, lysis of ahesions in may 2020 Social & Family History - Family History Family Medical History: No Pertinent Family History - Tobacco Use Tobacco Use Status *Q: Former Tobacco User Years of Tobacco use: 2 Packs/Tins Daily: 1 Used Tobacco, but Quit: Yes Month/Year Tobacco Last Used: 06/1990 - Caffeine Use Caffeine Use: Reports: Coffee Caffeine Use Comment: 2 pots of coffee - Recreational Drug Use Recreational Drug Use: No ED ROS GENERAL - Review of Systems Review Of Systems: See Below Constitutional: Reports: Decreased Appetite HEENT: Reports: No Symptoms Respiratory: Reports: No Symptoms Cardiovascular: Reports: No Symptoms Endocrine: Reports: No Symptoms GI/Abdominal: Reports: Abdominal Pain, Constipation, Decreased Appetite, Distension, Nausea, Vomiting : Reports: No Symptoms Musculoskeletal: Reports: No Symptoms Skin: Reports: No Symptoms Neurological: Reports: No Symptoms Psychiatric: Reports: No Symptoms Hematologic/Lymphatic: Reports: No Symptoms Immunologic: Reports: No Symptoms ED EXAM, GI/ABD - Physical Exam Exam: See Below Exam Limited By: No Limitations General Appearance: Alert, Anxious, Mild Distress Eyes: Bilateral: EOMI Throat/Mouth: Normal Inspection, Normal Lips, Normal Oropharynx, Normal Voice, No Airway Compromise Head: Atraumatic, Normocephalic Neck: Normal Inspection, Supple Respiratory/Chest: No Respiratory Distress, Lungs Clear, Normal Breath Sounds Cardiovascular: Normal Peripheral Pulses, Regular Rate, Rhythm, No Murmur GI/Abdominal Exam: Distended (Mildly distended. No tympany to percussion.), Abnormal Bowel Sounds (Decreased bowel sounds). No: Guarding, Rigid, Rebound Extremities: Normal Inspection, Normal Range of Motion Neurological: Alert, Oriented, Normal Cognition, No Motor/Sensory Deficits Psychiatric: Normal Affect, Normal Mood Skin Exam: Warm, Dry Lymphatic: No Adenopathy Course - Vital Signs Last Recorded V/S: Last Vital Signs Temp 36.4 C 12/14/20 17:52 Pulse 77 12/14/20 19:01 Resp 17 12/14/20 19:01 BP 128/78 12/14/20 19:01 Pulse Ox 96 12/14/20 19:01 - Orders/Labs/Meds Orders: Active Orders 24 hr Category Date Time Status Peripheral IV Care [RC] . DIRECTED Care 12/14/20 17:28 Active Iopamidol [Isovue-300 (61%)] Med 12/14/20 18:15 Active 100 ml IV . DIRECTED Lactated Ringers [Ringers, Lactated] 1,000 ml Med 12/14/20 19:00 Active IV ASDIRECTED Sodium Chloride 0.9% [Normal Saline] 100 ml Med 12/14/20 18:15 Active IV ASDIRECTED Sodium Chloride 0.9% [Saline Flush] Med 12/14/20 17:28 Active 10 ml FLUSH ASDIRECTED PRN Peripheral IV Insertion Adult [OM.PC] Urgent Oth 12/14/20 17:27 Ordered Medication Orders Sodium Chloride (Normal Saline) 100 mls @ 3 mls/sec IV ASDIRECTED QUEENIE Last Admin: 12/14/20 18:36 Dose: 3 mls/sec Documented by: GUNNAR Lactated Ringer's (Ringers, Lactated) 1,000 mls @ 125 mls/hr IV ASDIRECTED [facility] Last Admin: 12/14/20 19:00 Dose: 125 mls/hr Documented by: ZOHAIB Iopamidol (Iopamidol 612 Mg/Ml 100 Ml Bottle) 100 ml IV . DIRECTED QUEENIE Last Admin: 12/14/20 18:36 Dose: 100 ml Documented by: GUNNAR Sodium Chloride (Sodium Chloride 0.9% 10 Ml Syringe) 10 ml FLUSH ASDIRECTED PRN PRN Reason: Keep Vein Open Last Admin: 12/14/20 17:46 Dose: 10 ml Documented by: MARCO Labs: Laboratory Tests 12/14/20 12/14/20 12/14/20 Range/Units 17:37 17:37 17:37 WBC 8.5 (4.5-11.0) K/uL RBC 4.03 (3.30-5.50) M/uL Hgb 12.4 (12.0-15.0) g/dL Hct 38.3 (36.0-48.0) % MCV 95 (80-98) fL MCH 31 (27-31) pg MCHC 32 (32-36) % Plt Count 115 L (150-400) K/uL Neut % (Auto) 42 (36-66) % Lymph % (Auto) 23 L (24-44) % Towns % (Auto) 35 H (2-6) % Eos % (Auto) 1 L (2-4) % Baso % (Auto) 0 (0-1) % Sodium 142 (140-148) mmol/L Potassium 4.2 (3.6-5.2) mmol/L Chloride 103 (100-108) mmol/L Carbon Dioxide 28 (21-32) mmol/L Anion Gap 10.7 (5.0-14.0) mmol/L BUN 16 (7-18) mg/dL Creatinine 0.8 (0.6-1.0) mg/dL Est Cr Clr Drug Dosing 75.45 mL/min Estimated GFR (MDRD) > 60 (>60) Glucose 109 H (74-106) mg/dL Lactic Acid (0.4-2.0) mmol/L Calcium 9.7 (8.5-10.1) mg/dL Total Bilirubin 0.6 (0.2-1.0) mg/dL AST 19 (15-37) U/L ALT 26 (12-78) U/L Alkaline Phosphatase 101 (46-116) U/L Total Protein 7.5 (6.4-8.2) g/dL Albumin 4.2 (3.4-5.0) g/dL Globulin 3.3 (2.3-3.5) g/dL Albumin/Globulin Ratio 1.3 (1.2-2.2) Lipase 68 L (73-393) U/L Influenza Type A RNA (NEGATIVE) RSV RNA (INAAT) (NEGATIVE) Influenza Type B RNA (NEGATIVE) SARS-CoV-2 RNA (JANICE) (NEGATIVE) 12/14/20 12/14/20 Range/Units 17:37 18:33 WBC (4.5-11.0) K/uL RBC (3.30-5.50) M/uL Hgb (12.0-15.0) g/dL Hct (36.0-48.0) % MCV (80-98) fL MCH (27-31) pg MCHC (32-36) % Plt Count (150-400) K/uL Neut % (Auto) (36-66) % Lymph % (Auto) (24-44) % Towns % (Auto) (2-6) % Eos % (Auto) (2-4) % Baso % (Auto) (0-1) % Sodium (140-148) mmol/L Potassium (3.6-5.2) mmol/L Chloride (100-108) mmol/L Carbon Dioxide (21-32) mmol/L Anion Gap (5.0-14.0) mmol/L BUN (7-18) mg/dL Creatinine (0.6-1.0) mg/dL Est Cr Clr Drug Dosing mL/min Estimated GFR (MDRD) (>60) Glucose (74-106) mg/dL Lactic Acid 0.8 (0.4-2.0) mmol/L Calcium (8.5-10.1) mg/dL Total Bilirubin (0.2-1.0) mg/dL AST (15-37) U/L ALT (12-78) U/L Alkaline Phosphatase (46-116) U/L Total Protein (6.4-8.2) g/dL Albumin (3.4-5.0) g/dL Globulin (2.3-3.5) g/dL Albumin/Globulin Ratio (1.2-2.2) Lipase (73-393) U/L Influenza Type A RNA Negative (NEGATIVE) RSV RNA (INAAT) Negative (NEGATIVE) Influenza Type B RNA Negative (NEGATIVE) SARS-CoV-2 RNA (JANICE) Negative (NEGATIVE) Meds: Medications Generic Name Dose Route Start Last Admin Trade Name Freq PRN Reason Stop Dose Admin Sodium Chloride 100 mls @ 3 mls/sec 12/14/20 18:15 12/14/20 18:36 Normal Saline IV 3 mls/sec ASDIRECTED QUEENIE Administration Lactated Ringer's 1,000 mls @ 125 mls/hr 12/14/20 19:00 12/14/20 19:00 Ringers, Lactated IV 125 mls/hr ASDIRECTED QUEENIE Administration Iopamidol 100 ml 12/14/20 18:15 12/14/20 18:36 Iopamidol 612 Mg/Ml 100 Ml Bottle IV 100 ml . DIRECTED QUEENIE Administration Sodium Chloride 10 ml 12/14/20 17:28 12/14/20 17:46 Sodium Chloride 0.9% 10 Ml Syringe FLUSH 10 ml ASDIRECTED PRN Administration Keep Vein Open Discontinued Medications Generic Name Dose Route Start Last Admin Trade Name Freq PRN Reason Stop Dose Admin Fentanyl 50 mcg 12/14/20 17:27 12/14/20 17:44 Fentanyl 100 Mcg/2 Ml Sdv IVPUSH 12/14/20 17:28 50 mcg ONETIME ONE Administration Lactated Ringer's 1,000 mls @ 999 mls/hr 12/14/20 17:27 12/14/20 17:44 Ringers, Lactated IV 12/14/20 18:27 999 mls/hr BOLUS ONE Administration Ondansetron HCl 4 mg 12/14/20 17:27 12/14/20 17:44 Ondansetron 4 Mg/2 Ml Sdv IVPUSH 12/14/20 17:28 4 mg ONETIME ONE Administration Sodium Chloride 10 ml 12/14/20 18:06 12/14/20 18:36 Sodium Chloride 0.9% 10 Ml Syringe FLUSH 12/14/20 18:07 10 ml ONETIME ONE Administration - Re-Assessments/Exams Free Text/Narrative Re-Assessment/Exam: 12/14/20 18:48 the patient's labs including a CBC, comprehensive metabolic panel, and lipase. CBC is normal. Lipase is normal. Comprehensive metabolic panel is only significant for a glucose of 109. I reviewed the CT of the abdomen and pelvis with contrast showing a distended gallbladder with sludge but no evidence of pericholecystic fluid or cholecystic wall thickening. The patient does have a small bowel obstruction in the mid gut with evidence of twisted bowel and mesentery raising the question of a possible internal hernia. Appears to be the transition point with upstream being dilated with fluid and downstream being decompressed. 12/14/20 19:21 discussed the case with Dr. Pepito Escobar who recommended that we admit the patient for IV hydration, Zofran EMERGENCY SERVICE WORKER, and pain control. He will plan on taking the patient to the OR tomorrow for repair. I discussed the case with Roz Arias CNP who will arrange for the patient's admission. Departure - Departure Time of Disposition: 19:23 Disposition: Admitted As Inpatient 64 Clinical Impression: Small bowel obstruction, Sludge in gallbladder - Discharge Information *PRESCRIPTION DRUG MONITORING PROGRAM REVIEWED*: Not Applicable *COPY OF PRESCRIPTION DRUG MONITORING REPORT IN PATIENT LISA: Not Applicable Referrals: PCP,None [Primary Care Provider] - Forms: ED Department Discharge Sepsis Event Note (ED) - Evaluation Sepsis Screening Result: No Definite Risk - Focused Exam Vital Signs: Vital Signs Temp Pulse Resp BP Pulse Ox 12/14/20 19:01 77 17 128/78 96 12/14/20 17:52 36.4 C 94 16 135/86 99 12/14/20 17:13 36.4 C 94 16 135/86 99 - Problem List & Annotations (1) Sludge in gallbladder SNOMED Code(s): 93101264, 25442194 Code(s): K82.8 - OTHER SPECIFIED DISEASES OF GALLBLADDER Status: Acute Priority: Medium Current Visit: Yes (2) Small bowel obstruction SNOMED Code(s): 916363773 Code(s): K56.609 - UNSP INTESTNL OBST, UNSP TO PARTIAL VERSUS COMPLETE O BST Status: Acute Priority: High Current Visit: Yes - Problem List Review Problem List Initiated/Reviewed/Updated: Yes - My Orders Last 24 Hours: My Active Orders 12/14/20 18:15 Iopamidol [Isovue-300 (61%)] 100 ml IV . DIRECTED Sodium Chloride 0.9% [Normal Saline] 100 ml IV ASDIRECTED 12/14/20 19:00 Lactated Ringers [Ringers, Lactated] 1,000 ml IV ASDIRECTED - Assessment/Plan Last 24 Hours: My Active Orders 12/14/20 18:15 Iopamidol [Isovue-300 (61%)] 100 ml IV . DIRECTED Sodium Chloride 0.9% [Normal Saline] 100 ml IV ASDIRECTED 12/14/20 19:00 Lactated Ringers [Ringers, Lactated] 1,000 ml IV ASDIRECTED
[2020-12-14] MEDS ORDERED: Iopamidol 612 MG/ML 100 ML Bottle IV SCH (18:15)
[2020-12-14] MEDS ORDERED: Sodium Chloride 0.9% 100 ML IV SCH (18:15)
[2020-12-14] MEDS ORDERED: Lactated Ringers 1,000 ML IV SCH (19:00)
--- NOTE | 2020-12-14 19:15 | CRLCT ---
INDICATION: Periumbilical pain. Vomiting. COMPARISON: 07/02/2019. TECHNIQUE: CT abdomen and pelvis with IV contrast. 100 cc Isovue-300. FINDINGS: Imaged lung bases are unremarkable. The liver, spleen, adrenal glands and pancreas are unremarkable. Gallbladder is distended and contains sludge or small layering gallstones. Kidneys enhance symmetrically. No obstructing renal calculus or hydronephrosis. Abdominal aorta is normal in caliber. Bladder is unremarkable. Uterus is present. No free fluid or free air. Changes of gastric bypass are again noted. Dilated small bowel loops with transition point is in the mid abdomen with an area of twisting mesenteric (and series 2, image 84, series 3, image 34). Degenerative changes in the spine are again noted. IMPRESSION: 1. Dilated small bowel loops with transition point in the area of twisted mesentery. This is nonspecific but can be seen with internal hernia. 2. Distended gallbladder with sludge or smaller gallstones. Consider further evaluation with right upper quadrant ultrasound if clinically indicated. Findings discussed with Dr. Romeo at 7:10 PM on 12/14/20. Please note that all CT scans at this facility use dose modulation, iterative reconstruction, and/or weight-based dosing when appropriate to reduce radiation dose to as low as reasonably achievable. Dictated by Michael Negrete MD @ Dec 14 2020 6:51PM Signed by Dr. Michael Negrete @ Dec 14 2020 7:14PM
[2020-12-14 19:17] LABS: CORONAVIRUS COVID-19 NAA NEGATIVE (NEGATIVE)
--- NOTE | 2020-12-14 21:17 | PCM.HP.2 ---
H&P History of Present Illness - General Date of Service: 12/14/20 Admit Problem/Dx: Admission Diagnosis/Problem Admission Diagnosis/Problem Small bowel obstruction Source of Information: Patient, Provider, RN History Limitations: Reports: No Limitations - History of Present Illness Initial Comments - Free Text/Narative: chief complaint: abdominal pain This is a 55 year old female present to the ER for evaluation of abdominal pain starting this am. She reports tried to eat this morning but has nausea, vomiting and pain. Abdomen feels very bloated and pain. denies fever, chills. history of previous small bowel obstruction and yandy-en-y gastric bypass 2013 Onset of Symptoms: Reports: Today Symptom Onset Date: 12/14/20 Duration of Symptoms: Reports: Hour(s):, Getting Worse Location: Reports: Abdomen Quality: Reports: Same as Previous Episode (last small bowel obstruciton 2019) Improves with: Reports: None Worsens with: Reports: Eating Context: Reports: Other Associated Symptoms: Reports: Loss of Appetite, Malaise, Nausea/Vomiting - Related Data Allergies/Adverse Reactions: Allergies Allergy/AdvReac Type Severity Reaction Status Date / Time No Known Allergies Allergy Verified 12/14/20 17:16 Home Medications: Home Meds L.acidoph,Paracasei, B.lactis [Probiotic] 1 each PO DAILY 05/26/19 [History] Magnesium Oxide 400 mg PO DAILY 05/26/19 [History] Ascorbic Acid [Vitamin C] 500 mg PO DAILY 07/02/19 [History] Cholecalciferol (Vitamin D3) [Vitamin D] 5,000 unit PO DAILY 07/02/19 [History] Naltrexone 50 mg PO TID 07/02/19 [History] buPROPion [Wellbutrin] 75 mg PO TID 07/02/19 [History] Glucosam/Chond/Collagen/Hyalur [Glucosamine Chondroitin] 1 cap PO BID 12/14/20 [History] Past Medical History HEENT History: Reports: Cataract Other HEENT History: glasses Cardiovascular History: Reports: Hypertension Other Cardiovascular History: no meds Respiratory History: Reports: None Gastrointestinal History: Reports: Celiac Disease, Chronic Diarrhea Other Gastrointestinal History: RECENT DIAGNOSIS GLUTEN ALLERGY Genitourinary History: Reports: None RECREATIONAL DIRECTOR History: Reports: Other OB/BYN History: Musculoskeletal History: Reports: Osteoarthritis - Infectious Disease History Infectious Disease History: Reports: Chicken Pox, Measles, Mumps - Past Surgical History HEENT Surgical History: Reports: None GI Surgical History: Reports: Bariatric Procedure, Lysis of Adhesions Other GI Surgeries/Procedures: [place] Y 2013, lysis of ahesions in may 2020 Social & Family History - Family History Family Medical History: No Pertinent Family History - Tobacco Use Tobacco Use Status *Q: Former Tobacco User Years of Tobacco use: 2 Packs/Tins Daily: 1 Used Tobacco, but Quit: Yes Month/Year Tobacco Last Used: 06/1990 - Caffeine Use Caffeine Use: Reports: Coffee Caffeine Use Comment: 2 pots of coffee - Recreational Drug Use Recreational Drug Use: No - Living Situation & Occupation Living situation: Reports: Single, with Significant Other (lives in [place] with roommate) H&P Review of Systems - Review of Systems: Review Of Systems: See Below General: Reports: Fatigue, Decreased Appetite HEENT: Reports: Glasses, Other (natural teeth) Pulmonary: Reports: No Symptoms Cardiovascular: Reports: No Symptoms Gastrointestinal: Reports: Abdominal Pain, Decreased Appetite, Distension, Nausea, Vomiting Genitourinary: Reports: No Symptoms Musculoskeletal: Reports: No Symptoms Skin: Reports: No Symptoms Psychiatric: Reports: No Symptoms Neurological: Reports: No Symptoms Hematologic/Lymphatic: Reports: No Symptoms Immunologic: Reports: No Symptoms Exam - Exam Exam: See Below - Vital Signs Vital Signs: Last Vital Signs Temp 97.6 F 12/14/20 17:52 Pulse 83 12/14/20 20:12 Resp 96 H 12/14/20 19:40 BP 149/90 H 12/14/20 20:12 Pulse Ox 95 12/14/20 20:12 Weight: 208 lb 15.971 oz - Exam Quality Assessment: DVT Prophylaxis General: Alert, Oriented, Cooperative, Mild Distress HEENT: PERRLA, Hearing Intact, Mucosa Moist & [place], Nares Patent, Normal Nasal Septum, Posterior Pharynx Clear, Conjunctiva Clear, EOMI, EACs Clear, TMs Clear Neck: Supple, Trachea Midline, 2 Lungs: Clear to Auscultation, Normal Respiratory Effort Cardiovascular: Regular Rate, Regular Rhythm GI/Abdominal Exam: Normal Bowel Sounds, Distended (mild), Tender (generalized abdominal tenderness.) (Female) Exam: Deferred Rectal (Female) Exam: Deferred Back Exam: Normal Inspection, Full Range of Motion, NT Extremities: Normal Inspection, Normal Range of Motion, Non-Tender, No Pedal Edema, Normal Capillary Refill Peripheral Pulses: 2+: Radial (L), Radial (R), Dorsalis Pedis (L), Dorsalis Pedis (R) Skin: Warm, Dry, Intact Neurological: Cranial Nerves Intact, Reflexes Equal Bilateral Neuro Extensive - Mental Status: Alert, Oriented x3, Normal Mood/Affect, Normal Cognition Neuro Extensive - Motor, Sensory, Reflexes: CN II-XII Intact, Normal Gait, Normal Reflexes Psychiatric: Alert, Normal Affect, Normal Mood - Patient Data Lab Results Last 24 hrs: Laboratory Results - last 24 hr 12/14/20 12/14/20 12/14/20 Range/Units 17:37 17:37 17:37 WBC 8.5 (4.5-11.0) K/uL RBC 4.03 (3.30-5.50) M/uL Hgb 12.4 (12.0-15.0) g/dL Hct 38.3 (36.0-48.0) % MCV 95 (80-98) fL MCH 31 (27-31) pg MCHC 32 (32-36) % Plt Count 115 L (150-400) K/uL Neut % (Auto) 42 (36-66) % Lymph % (Auto) 23 L (24-44) % [place] % (Auto) 35 H (2-6) % Eos % (Auto) 1 L (2-4) % Baso % (Auto) 0 (0-1) % Sodium 142 (140-148) mmol/L Potassium 4.2 (3.6-5.2) mmol/L Chloride 103 (100-108) mmol/L Carbon Dioxide 28 (21-32) mmol/L Anion Gap 10.7 (5.0-14.0) mmol/L BUN 16 (7-18) mg/dL Creatinine 0.8 (0.6-1.0) mg/dL Est Cr Clr Drug Dosing 75.45 mL/min Estimated GFR (MDRD) > 60 (>60) Glucose 109 H (74-106) mg/dL Lactic Acid (0.4-2.0) mmol/L Calcium 9.7 (8.5-10.1) mg/dL Total Bilirubin 0.6 (0.2-1.0) mg/dL AST 19 (15-37) U/L ALT 26 (12-78) U/L Alkaline Phosphatase 101 (46-116) U/L Total Protein 7.5 (6.4-8.2) g/dL Albumin 4.2 (3.4-5.0) g/dL Globulin 3.3 (2.3-3.5) g/dL Albumin/Globulin Ratio 1.3 (1.2-2.2) Lipase 68 L (73-393) U/L Influenza Type A RNA (NEGATIVE) RSV RNA (INAAT) (NEGATIVE) Influenza Type B RNA (NEGATIVE) SARS-CoV-2 RNA (JANICE) (NEGATIVE) 12/14/20 12/14/20 Range/Units 17:37 18:33 WBC (4.5-11.0) K/uL RBC (3.30-5.50) M/uL Hgb (12.0-15.0) g/dL Hct (36.0-48.0) % MCV (80-98) fL MCH (27-31) pg MCHC (32-36) % Plt Count (150-400) K/uL Neut % (Auto) (36-66) % Lymph % (Auto) (24-44) % [place] % (Auto) (2-6) % Eos % (Auto) (2-4) % Baso % (Auto) (0-1) % Sodium (140-148) mmol/L Potassium (3.6-5.2) mmol/L Chloride (100-108) mmol/L Carbon Dioxide (21-32) mmol/L Anion Gap (5.0-14.0) mmol/L BUN (7-18) mg/dL Creatinine (0.6-1.0) mg/dL Est Cr Clr Drug Dosing mL/min Estimated GFR (MDRD) (>60) Glucose (74-106) mg/dL Lactic Acid 0.8 (0.4-2.0) mmol/L Calcium (8.5-10.1) mg/dL Total Bilirubin (0.2-1.0) mg/dL AST (15-37) U/L ALT (12-78) U/L Alkaline Phosphatase (46-116) U/L Total Protein (6.4-8.2) g/dL Albumin (3.4-5.0) g/dL Globulin (2.3-3.5) g/dL Albumin/Globulin Ratio (1.2-2.2) Lipase (73-393) U/L Influenza Type A RNA Negative (NEGATIVE) RSV RNA (INAAT) Negative (NEGATIVE) Influenza Type B RNA Negative (NEGATIVE) SARS-CoV-2 RNA (JANICE) Negative (NEGATIVE) Result Diagrams: 12/14/20 17:37 12/14/20 17:37 Sepsis Event Note - Evaluation Sepsis Screening Result: No Definite Risk - Focused Exam Vital Signs: Vital Signs Temp Pulse Resp BP Pulse Ox 12/14/20 20:12 83 149/90 H 95 12/14/20 19:40 84 96 H 149/98 H 12/14/20 19:01 77 17 128/78 96 12/14/20 17:52 97.6 F 94 16 135/86 99 12/14/20 17:13 97.6 F 94 16 135/86 99 - Problem List (1) Small bowel obstruction SNOMED Code(s): 565833387 ICD Code: K56.609 - UNSP INTESTNL OBST, UNSP TO PARTIAL VERSUS COMPLETE OBST Status: Acute Priority: High Current Visit: Yes (2) Sludge in gallbladder SNOMED Code(s): 51909713, 14082209 ICD Code: K82.8 - OTHER SPECIFIED DISEASES OF GALLBLADDER Status: Acute Priority: Medium Current Visit: Yes Problem List Initiated/Reviewed/Updated: Yes Orders Last 24hrs: Active Orders 24 hr Category Date Time Status Patient Status Manage Transfer [TRANSFER] Routine ADT 12/14/20 19:21 Active Peripheral IV Care [RC] . DIRECTED Care 12/14/20 17:28 Active Abdomen 1V Upright [CR] Stat Exams 12/14/20 20:13 Stop Req Chest 1V Frontal [CR] Stat Exams 12/14/20 20:13 Stop Req Iopamidol [Isovue-300 (61%)] Med 12/14/20 18:15 Active 100 ml IV . DIRECTED Lactated Ringers [Ringers, Lactated] 1,000 ml Med 12/14/20 19:00 Active IV ASDIRECTED Sodium Chloride 0.9% [Normal Saline] 100 ml Med 12/14/20 18:15 Active IV ASDIRECTED Sodium Chloride 0.9% [Saline Flush] Med 12/14/20 17:28 Active 10 ml FLUSH ASDIRECTED PRN Peripheral IV Insertion Adult [OM.PC] Urgent Oth 12/14/20 17:27 Ordered Resuscitation Status Routine Resus Stat 12/14/20 19:24 Ordered Medication Orders Sodium Chloride (Normal Saline) 100 mls @ 3 mls/sec IV ASDIRECTED [facility] Last Admin: 12/14/20 18:36 Dose: 3 mls/sec Documented by: GUNNAR Lactated Ringer's (Ringers, Lactated) 1,000 mls @ 125 mls/hr IV ASDIRECTED [facility] Last Admin: 12/14/20 19:00 Dose: 125 mls/hr Documented by: ZOHAIB Iopamidol (Iopamidol 612 Mg/Ml 100 Ml Bottle) 100 ml IV . DIRECTED [facility] Last Admin: 12/14/20 18:36 Dose: 100 ml Documented by: GUNNAR Sodium Chloride (Sodium Chloride 0.9% 10 Ml Syringe) 10 ml FLUSH ASDIRECTED PRN PRN Reason: Keep Vein Open Last Admin: 12/14/20 17:46 Dose: 10 ml Documented by: MARCO Assessment/Plan Comment:: ASSESSMENT AND PLAN OF CARE: SMALL BOWEL OBSTRUCTION Small bowel obstruction- CT of the abdomen and pelvis with contrast showing a distended gallbladder with sludge but no evidence of pericholecystic fluid or cholecystic wall thickening. The patient does have a small bowel obstruction in the mid gut with evidence of twisted bowel and mesentery raising the question of a possible internal hernia. Appears to be the transition point with upstream being dilated with fluid and downstream being decompressed.high-grade obstruction. No evidence for infection. No history of inflammatory bowel disease. Labs including a CBC, comprehensive metabolic panel, and lipase. CBC is normal. Lipase is normal. Comprehensive metabolic panel is only significant for a glucose of 109. Consulted with Dr. Pepito Escobar who recommended that we admit the patient for IV hy dration, Zofran STEAM GENERATING POWERPLANT MECHANIC, and pain control. He will plan on taking the patient to the OR tomorrow for repair. -Nothing by mouth -IV fluids D5LR at 125ml/hr -IV nausea management -STEAM GENERATING POWERPLANT MECHANIC Fentanyl -Flat and upright in the morning -NG tube attempted- Mrs. Stark declines further attempts. -Surgery in the morning -am labs CBC, BMP Gallbladder disease- CT abdomen and pelvis shows distended gallbladder with gallstones and sludge. -consult to Dr. Escobar for recommendations for further care. Maintenance issues - - DVT prophylaxis -SCD - GI prophylaxis -PPI IV Protonix 40 mg - Nutrition -nothing by mouth - Oquendo catheter -not indicated CODE STATUS -full code Admission justification - this patient will be admitted for inpatient services and is medically appropriate meeting medical necessity for inpatient admission as outlined in my documentation. I reasonably expect the patient will require inpatient services that span a period time over 2 midnights. I reasonably expect this patient to be discharged or transferred within 96 hours [facility]. Disposition -I would anticipate discharge home after the hospital stay Primary care physician - [facility] Surgeon- Dr. Parrish Escobar Hospitalist- Werner Sharp M.D. - Mortality Measure Prognosis:: Good
[2020-12-14] MEDS ORDERED: Naloxone 0.4 MG/ML SDV IVPUSH PRN ×2 (21:19→22:13)
[2020-12-14] MEDS ORDERED: fentaNYL/Normal Saline 600 MCG/30 ML PCA Vial IV PRN (21:19)
[2020-12-14] MEDS ORDERED: Docusate Sodium 100 MG Cap PO PRN (21:19)
[2020-12-14] MEDS ORDERED: LORazepam 2 MG/ML SDV IV PRN (21:19)
[2020-12-14] MEDS ORDERED: Albuterol/Ipratropium 3.0-0.5 MG/3 ML Neb Soln NEB PRN (21:19)
[2020-12-14] MEDS ORDERED: Albuterol 0.083% 2.5 MG/3 ML Neb Soln NEB PRN (21:19)
[2020-12-14] MEDS ORDERED: Bisacodyl 5 MG Tab PO PRN (21:19)
[2020-12-14] MEDS ORDERED: HYDROmorphone/Normal Saline 15 MG/30 ML PCA IV PRN (22:13)
[2020-12-15] MEDS: Dextrose 5%-Lactated Ringers 1,000 ML IV SCH ×4 (02:33→23:06)
[2020-12-15] MEDS ORDERED: Acetaminophen 325 MG Tab PO PRN (03:15)
[2020-12-15] MEDS ORDERED: Non-Formulary Medication 1 Each IV ONE ×3 (07:18→15:27)
[2020-12-15] MEDS ORDERED: Ketamine 500 MG/5 ML MDV IV SCH ×3 (07:30→12:00)
--- NOTE | 2020-12-15 08:49 | PN ---
DATE OF SERVICE: 12/15/2020 SUBJECTIVE: Melisa was admitted yesterday after she had a CT scan and full workup in the emergency department, [facility]. She was admitted for a small bowel obstruction. Currently, her pain is controlled. Vital signs have been stable. She does have a headache from caffeine withdrawal. She has been n.p.o. since admission with exception of a few sips of coffee during the night, which did help with the headache. REVIEW OF SYSTEMS: Remainder of review of systems negative for any other pertinent positives and negatives. OBJECTIVE: GENERAL: Melisa Stark is a pleasant 55-year-old female. VITAL SIGNS: TPR is 96.7, 76, 16, blood pressure 128/74. HEENT: Negative. NECK: Supple. HEART: Regular rate and rhythm. LUNGS: Clear. ABDOMEN: Generalized tenderness in all 4 quadrants with the greatest tenderness in the left upper quadrant. EXTREMITIES: Without peripheral edema. NEUROLOGIC: Cranial nerves II through XII intact. PSYCHIATRIC: Mood and affect appropriate. ASSESSMENT: 1. Dilated small-bowel loops with transition point in the area of twisted mesentery. 2. Distended gallbladder with sludge or smaller gallstones. PLAN: 1. Schedule and have consent signed for exploratory laparotomy with release of partial small bowel obstruction and possible cholecystectomy and possible small bowel resection. Case to follow, 12/15/2020. Surgeon: Parrish Escobar MD. General anesthesia, TAP block. Ketamine bolus and drip ordered. Magnesium bolus and drip ordered. 2. Cefoxitin 2 g IV on-call to OR. Ferritin to be tested on the blood already drawn. 3. May have small amount of coffee at 8 a.m. for caffeine withdrawal headache. 4. Incentive spirometer, use 10 times every hour while awake. 5. Communication order written to print off all previous operative reports. 6. Rx Protonix 40 mg IV daily at 0900. 7. We will evaluate p.r.n. Orders will be written postoperatively. Ana Pearson PA-C /[id number]
[2020-12-15] MEDS: Pantoprazole 40 MG Vial IV SCH (09:27)
[2020-12-15] MEDS ORDERED: Rocuronium 50 MG/5 ML Vial ONE (09:52)
[2020-12-15] MEDS ORDERED: Ondansetron 4 MG/2 ML SDV ONE (09:52)
[2020-12-15] MEDS ORDERED: Propofol 200 MG/20 ML SDV ONE (09:52)
[2020-12-15] MEDS ORDERED: Glycopyrrolate 0.2 MG/ML 5 ML MDV ONE (09:52)
[2020-12-15] MEDS ORDERED: fentaNYL 250 MCG/5 ML SDV ONE ×2 (09:52→12:52)
[2020-12-15] MEDS ORDERED: Neostigmine Methylsulfate 1 MG/ML 5 ML Syringe ONE (09:52)
[2020-12-15] MEDS ORDERED: Dexamethasone 4 MG/ML SDV ONE (09:52)
[2020-12-15] MEDS ORDERED: Succinylcholine 200 MG/10 ML MDV ONE (09:52)
[2020-12-15] MEDS ORDERED: cefOXitin 2 GM in Sodium Chloride 0.9% 50 ML IV ONE (12:00)
[2020-12-15] MEDS ORDERED: Magnesium Sulfate 4.5 GM in Sodium Chloride 0.9% 250 ML IV ONE (12:00)
[2020-12-15] MEDS ORDERED: Magnesium Sulfate 2.8 GM in Sodium Chloride 0.9% 100 ML IV SCH (12:00)
[2020-12-15] MEDS ORDERED: Ketamine 50 MG in Sodium Chloride 0.9% 49.5 ML IV SCH (12:00)
[2020-12-15] MEDS ORDERED: Meropenem 500 MG SDV ONE (13:25)
[2020-12-15] MEDS ORDERED: Lidocaine 1% with EPINEPHrine 1:100,000 50 ML MDV ONE (13:35)
[2020-12-15] MEDS ORDERED: Bupivacaine 0.5% 50 ML MDV ONE (13:35)
[2020-12-15] MEDS ORDERED: fentaNYL 100 MCG/2 ML SDV ONE (13:37)
[2020-12-15] MEDS ORDERED: fentaNYL 100 MCG/2 ML SDV IVPUSH ONE (14:18)
[2020-12-15] MEDS ORDERED: hydrOXYzine HCL 100 MG/2 ML SDV IM ONE (14:19)
[2020-12-15] MEDS ORDERED: Cyclobenzaprine 10 MG Tab PO PRN (15:15)
[2020-12-15] MEDS ORDERED: Labetalol 20 MG/4 ML Syringe IVPUSH PRN (16:00)
[2020-12-15] MEDS ORDERED: diphenhydrAMINE 50 MG/ML SDV IVPUSH PRN (16:00)
[2020-12-15] MEDS ORDERED: Scopolamine 1.5 MG Transdermal Patch TOP SCH (16:00)
[2020-12-15] MEDS ORDERED: MVI, Adult with Vitamin K 10 ML, Thiamine 200 MG, Zinc/Copper/Manganese/Selenium 1 ML i... IV SCH ×4 (16:00)
[2020-12-15] MEDS ORDERED: hydrOXYzine HCL 100 MG/2 ML SDV IM PRN (16:00)
[2020-12-15] MEDS ORDERED: Albuterol/Ipratropium 3.0-0.5 MG/3 ML Neb Soln INH PRN (16:00)
[2020-12-15] MEDS ORDERED: Calcium Gluconate 10% 1 GM/10 ML SDV IVPUSH PRN (16:00)
[2020-12-15] MEDS ORDERED: Metoclopramide 10 MG/2 ML SDV IVPUSH PRN (16:00)
[2020-12-15] MEDS: Acetaminophen 500 MG Tab PO SCH ×2 (16:17→23:05)
[2020-12-15] MEDS: cefOXitin 2 GM in Sodium Chloride 0.9% 50 ML IV SCH ×2 (17:16→23:05)
[2020-12-15] MEDS ORDERED: Heparin Sodium 5,000 Units/ML Vial SUBCUT SCH (20:00)
[2020-12-15] MEDS: Celecoxib 200 MG Cap PO SCH (21:07)
[2020-12-15] MEDS: Albuterol/Ipratropium 3.0-0.5 MG/3 ML Neb Soln INH SCH (21:08)
[2020-12-16] MEDS ORDERED: Iopamidol 612 MG/ML 50 ML SDV PO STA (02:00)
[2020-12-16] MEDS: Ondansetron 4 MG/2 ML SDV IV PRN ×2 (02:09→07:19)
[2020-12-16] MEDS: Dextrose 5%-Lactated Ringers 1,000 ML IV SCH ×2 (05:05→11:45)
[2020-12-16] MEDS: cefOXitin 2 GM in Sodium Chloride 0.9% 50 ML IV SCH ×3 (05:06→17:45)
[2020-12-16] MEDS ORDERED: Ondansetron 4 MG Tab.DIS PO PRN (07:19)
[2020-12-16] MEDS: Albuterol/Ipratropium 3.0-0.5 MG/3 ML Neb Soln INH SCH ×4 (07:27→21:49)
--- NOTE | 2020-12-16 08:58 | CR ---
UGI Limited HISTORY: Postbariatric surgery FINDINGS: Patient swallowed water-soluble contrast. Upright views of the abdomen show no evidence of extravasation or obstruction. IMPRESSION: Status post bariatric surgery No extravasation or obstruction seen
[2020-12-16] MEDS: Acetaminophen 500 MG Tab PO SCH ×2 (09:01→15:34)
[2020-12-16] MEDS: Pantoprazole 40 MG Vial IV SCH (09:02)
[2020-12-16] MEDS: Sodium Ferric Gluconate Cmplex 250 MG in Sodium Chloride 0.9% 100 ML IV SCH (10:12)
[2020-12-16] MEDS: Celecoxib 200 MG Cap PO SCH ×2 (10:13→21:49)
[2020-12-16] MEDS: SCOPOLAMINE PATCH CHECK TOP SCH (11:34)
--- NOTE | 2020-12-16 13:42 | PN ---
DATE OF SERVICE: 12/16/2020 SUBJECTIVE: Melisa reports pain is controlled using the EXTERIOR DOOR INSTALLER. She has been nauseated on and off. Oral intake 400. Urine output via Oquendo catheter is 1640. Vital signs have been stable. She has been afebrile. Hemoglobin this morning is 10.4 and ferritin 32. REVIEW OF SYSTEMS: Remainder of review of systems negative for any pertinent positives or negatives. OBJECTIVE: GENERAL: Melisa Stark is a pleasant 55-year-old female. She is not feeling all right now. States she is very nauseated, waiting for IV Zofran. TPR is 98.9, 101, 16, blood pressure 149/87. HEENT: Negative. NECK: Supple. HEART: Regular rate and rhythm. LUNGS: Clear. ABDOMEN: Dressings dry and intact. Abdominal binder is on. EXTREMITIES: Without peripheral edema. SCDs are on. ASSESSMENT: Exploratory laparotomy with: 1. Reduction of small bowel volvulus. 2. Small bowel resection. 3. Secondary enteroenterostomy to restore Macy-en-Y bowel anatomy. 4. Repair of incarcerated periumbilical hernia. 5. Partial omentectomy. 6. Placement of Interceed mesh. POSTOPERATIVE DIAGNOSES: Partial small bowel obstruction secondary to: 1. Small bowel volvulus. 2. 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 3. Incarcerated periumbilical hernia. 4. Area of omentum revascularized secondary to takedown of adhesions. Date of procedure 12/15/2020. Surgeon: Parrish Escobar MD PLAN: 1. Decrease IV to 100 mL/hr. 2. Discontinue Oquendo catheter. 3. Step-2 gastric bypass diet. 4. Ferrous gluconate 250 mg IV 1 dose today and 1 tomorrow. Check CBC in a.m. 5. Continue use of incentive spirometer and ambulation. 6. We will evaluate p.r.n. or in a.m. Ana Pearson PA-C /[id number]
[2020-12-16] MEDS: MVI, Adult with Vitamin K 10 ML, Thiamine 200 MG, Zinc/Copper/Manganese/Selenium 1 ML i... IV SCH ×4 (17:45)
[2020-12-16] MEDS: Acetaminophen 500 MG Tab PO PRN (19:37)
[2020-12-17] MEDS: Acetaminophen 500 MG Tab PO SCH ×5 (00:20→23:18)
[2020-12-17] MEDS: Acetaminophen 500 MG Tab PO PRN (03:02)
[2020-12-17] MEDS: Dextrose 5%-Lactated Ringers 1,000 ML IV SCH ×2 (04:26→14:15)
[2020-12-17] MEDS: Albuterol/Ipratropium 3.0-0.5 MG/3 ML Neb Soln INH SCH ×4 (07:08→20:09)
[2020-12-17] MEDS ORDERED: Cyanocobalamin (Vitamin B12) 1,000 MCG/ML SDV IM ONE (09:00)
[2020-12-17] MEDS: Celecoxib 200 MG Cap PO SCH ×2 (09:33→20:09)
[2020-12-17] MEDS: Docusate Sodium 100 MG Cap PO SCH ×2 (09:35→20:08)
[2020-12-17] MEDS: Bisacodyl 5 MG Tab PO SCH ×2 (09:35→20:08)
[2020-12-17] MEDS: Sodium Ferric Gluconate Cmplex 250 MG in Sodium Chloride 0.9% 100 ML IV SCH (09:54)
[2020-12-17] MEDS: Pantoprazole 40 MG Tab.CR PO SCH (10:30)
[2020-12-17] MEDS: SCOPOLAMINE PATCH CHECK TOP SCH (12:01)
[2020-12-17] MEDS: HYDROmorphone 2 MG Tab PO PRN ×2 (15:36→22:31)
[2020-12-17] MEDS: MVI, Adult with Vitamin K 10 ML, Thiamine 200 MG, Zinc/Copper/Manganese/Selenium 1 ML i... IV SCH ×4 (16:49)
[2020-12-18] MEDS: Pantoprazole 40 MG Tab.CR PO SCH (07:03)
[2020-12-18] MEDS: Albuterol/Ipratropium 3.0-0.5 MG/3 ML Neb Soln INH SCH (07:16)
[2020-12-18] MEDS ORDERED: Magnesium Hydroxide 400 MG/5 ML Susp 30 ML Cup PO PRN (07:42)
[2020-12-18 07:52] VITALS: BP 124/70; PULSE 85
[2020-12-18] MEDS: Docusate Sodium 100 MG Cap PO SCH (08:08)
[2020-12-18] MEDS: Celecoxib 200 MG Cap PO SCH (08:08)
[2020-12-18] MEDS: Acetaminophen 500 MG Tab PO SCH (08:08)
[2020-12-18] MEDS: Bisacodyl 5 MG Tab PO SCH (08:08)
--- NOTE | 2020-12-19 11:54 | PN ---
DATE OF SERVICE: 12/17/2020 The patient is postop day 2 from a reduction of small bowel volvulus, small bowel resection, repair of incarcerated periumbilical hernia, partial omentectomy, and placement of Interceed mesh. Postoperatively, the oral intake was fair around 900 mL. She had not moved her bowels as of yet. Plan will be to switch over to oral pain medication today and begin some bowel stimulation. She may shower and maybe ready for discharge home tomorrow. Parrish Escobar MD /[id number]
--- NOTE | 2020-12-19 12:36 | DISCH ---
FINAL DIAGNOSES: 1. Partial small bowel obstruction secondary to a small bowel volvulus and the stricture at jejunojejunostomy. 2. Incarcerated paraumbilical hernia. 3. Area of the omentum devascularized secondary to takedown of adhesions. SECONDARY DIAGNOSES: 1. History of asthma. 2. Bariatric surgery status. 3. History of hypertension. 4. History of osteoarthritis. OPERATIVE PROCEDURES: Done on 12/14, exploratory laparotomy with: 1. Reduction of small bowel volvulus and closure of internal hernia. 2. Small bowel resection. 3. Secondary enteroenterostomy for sabianist of Macy-en-Y small bowel anatomy. 4. Repair of incarcerated paraumbilical hernia. 5. Partial omentectomy. 6. Placement of Interceed mesh to limit recurrent adhesion formation in the pelvic and abdominal wall and underlying viscera. SUMMARY: This is a 55-year-old female presenting with a partial small bowel obstruction with the above-noted findings intraoperatively. The patient underwent the above-noted procedure. At this time, she will be discharged home on a step-3 diet. She is tolerating her oral pain medication, and follow up with Ana Pearson at [facility] on 12/27/2020. DISCHARGE MEDICATIONS: Include Dilaudid 2 mg p.o. q.4 hours p.r.n. pain #40. She will be sent home with 2 doses of milk of magnesia to take on a p.r.n. basis. She is also instructed she can take Tylenol 1 g q.6 hours p.r.n. pain and she will be instructed to hold the naltrexone until she is off the Dilaudid. /[id number]
--- NOTE | 2021-01-02 17:56 | OR ---
DATE OF PROCEDURE: 12/15/2020 SURGEON: Parrish Escobar MD PREOPERATIVE DIAGNOSIS: Partial small bowel obstruction. POSTOPERATIVE DIAGNOSES: 1. Partial small bowel obstruction secondary to: a. Small bowel volvulus. b. Stricture at jejunojejunostomy. 2. Incarcerated periumbilical hernia. 3. Area of omentum devascularized secondary to takedown of adhesions. OPERATIVE PROCEDURES: Exploratory laparotomy with: 1. Reduction of small bowel volvulus and closure of internal hernia (95211). 2. Small bowel resection (98166). 3. Secondary enteroenterostomy to restore Macy-en-Y small bowel anatomy (10458). 4. Repair of incarcerated periumbilical hernia (19809). 5. Partial omentectomy (47713). 6. Placement of Interceed mesh to limit recurrent adhesion formation between abdominal and pelvic wall and underlying viscera (88146). ANESTHESIA: General. SHRIMP BOAT CAPTAIN: Ana Pearson PA-C INDICATIONS FOR PROCEDURE: The patient presents with a picture of a partial small bowel obstruction, status post previous Macy-en-Y gastric bypass. Plan is to proceed with a limited open laparotomy, lysis of adhesions, and bowel resection as indicated. Potential risks including bleeding, infection, leaks from various GI tract closures, and problems with further bowel obstruction over time as well as possibility of cardiopulmonary, septic, or hemorrhagic complications leading to were all discussed, and the patient wishes to proceed. DETAILS OF PROCEDURE: The patient was taken to the operating room and placed in a supine position. After general endotracheal anesthesia was induced, a Oquendo catheter was inserted and the abdomen prepped and draped. Incision was then made from the umbilicus roughly a handsbreadth towards the xiphoid and carried down through the full thickness of abdominal wall. Upon entering the peritoneal cavity, some underlying adhesions were taken down in the omentum and the anterior abdominal wall. Examination of small bowel showed an area of focal volvulus with a loop of bowel consisting of some of the common limb and jejunojejunostomy prolapsing from a right to left direction underneath the mesenteric defect underlying the Macy limb. This was reduced, and at that point, that mesenteric defect was closed with a 2-0 silk stitch. There was persistent stricturing at the point where the Macy limb entered the jejunojejunostomy, and the 3 components of that anastomosis were then resected with SHEKHAR alba as was the underlying attached mesentery and the small bowel specimen delivered from the field. The GI tract continuity was then reestablished. No significant changes in bowel length of was undertaken in this case. Initial anastomosis between the bowel that had been the distal-most biliopancreatic limb to the proximal-most common limb was initially constructed with internal firing of the Endo-SHEKHAR 60 mm stapler. Common opening was then closed transversely with same stapler. Angles anastomosed was reinforced with some 3-0 Vicryl stitch and the mesenteric defect with a 2-0 silk stitch. The Macy-en-Y anatomy was then reconstructed with an anastomosis between the bowel head and the distal most Macy limb to a point roughly 20 cm to the initial anastomosis with the same sequence of alba and mesenteric angle and mesenteric defect closures as per the first anastomosis. At this point, no further problems were noted apart from a periumbilical incisional hernia and some devascularized omentum. The latter was then resected by means of SHEKHAR alba and the partial omentectomy specimen delivered. The tissue and peritoneum underlying the periumbilical incisional hernia, which had contained some incarcerated omentum earlier, was then dissected free. Interceed mesh was then placed underneath the incision, and from there, down towards the pelvis to limit recurrent adhesion formation between the pelvic and abdominal wall. Bilateral transversus abdominis plane blocks at that point had been placed, and the fascia was additionally injected with some 0.5% Marcaine mixed with lidocaine. The midline fascia was then approximated with #2 Vicryl stitch, subcutaneous tissue with layers of 3-0 and 4-0 Vicryl stitch, and the skin with alba. Dressing was applied. The closure of the fascia included closure of the hernia. The patient was taken to the recovery room in satisfactory condition. One additional note on this patient is that she was noted to have some cholelithiasis on preoperative imaging; however, the gallbladder appeared to be completely uninflamed and more or less . It was felt best to leave this in place to simplify the current procedure. The patient was taken to the recovery room in satisfactory condition. Physician dental assistant medical assistant, Ana Pearson, played an essential role in assisting in this case, helping to position the patient, and retract structures as needed, as well as suturing and cutting sutures when indicated. Her presence improved patient safety and decreased operative time. Parrish Escobar MD /[id number]
== END 2020-12-18 09:55 | disposition home or self-care (01) | DRG 329 ==
LOC: JP.ED 16:59 → JP.MS 19:21
PROVIDERS: ADMIT Surgery; ATTEND Surgery
PROC: 0DS80ZZ Reposition Small Intestine, Open Approach (ICD-10-PCS; principal; 2020-12-15)
PROC: 0DB80ZZ Excision of Small Intestine, Open Approach (ICD-10-PCS; 2020-12-15)
PROC: 0DQV0ZZ Repair Mesentery, Open Approach (ICD-10-PCS; 2020-12-15)
PROC: 0WQF0ZZ Repair Abdominal Wall, Open Approach (ICD-10-PCS; 2020-12-15)
PROC: 0DBU0ZZ Excision of Omentum, Open Approach (ICD-10-PCS; 2020-12-15)
PROC: 3E0M05Z Introduction of Adhesion Barrier into Peritoneal Cavity, Open Approach (ICD-10-PCS; 2020-12-15)
DX: K91.89 Other postprocedural complications and disorders of digestive system (principal); K56.2 Volvulus; K42.0 Umbilical hernia with obstruction, without gangrene; I10 Essential (primary) hypertension; M19.90 Unspecified osteoarthritis, unspecified site; K52.9 Noninfective gastroenteritis and colitis, unspecified; K82.8 Other specified diseases of gallbladder; Z20.822 Contact with and (suspected) exposure to COVID-19; Z79.899 Other long term (current) drug therapy; Z87.891 Personal history of nicotine dependence
CPT/HCPCS: 0241U; 36415; 74177; 74240; 74240-26; 80048; 80053; 82728; 83605; 83690; 83735; 83880; 84100; 85025; 85027; 88305; 88307; 94640; 94762; 96374; 96375; 96376; 99222; 99283; 99285-25; A9270-GY; C9113; J0171; J0330; J0694; J1100; J1170; J1644; J2185; J2405; J2704; J2710; J2765; J2795; J2916; J3010; J3410; J3411; J3420; J3475; J3490; J7050; J7120; J7121; J7620-GY; Q9967

== ENCOUNTER 2021-03-01 11:53 | Inpatient (IN) | payer OTHER ==
[2021-03-01] MEDS ORDERED: Ondansetron 4 MG/2 ML SDV IVPUSH ONE (13:59)
[2021-03-01] MEDS ORDERED: HYDROmorphone 0.5 MG/0.5 ML Syringe IVPUSH ONE ×2 (14:00→17:07)
[2021-03-01] MEDS ORDERED: Sodium Chloride 0.9% 1,000 ML IV SCH ×2 (14:00→17:15)
--- NOTE | 2021-03-01 14:05 | EDM.PDOC ---
ED HPI GENERAL MEDICAL PROBLEM - General Chief Complaint: Abdominal Pain Stated Complaint: RNY 2006 BOWL SURGERY 11/2020 Time Seen by Provider: 03/01/21 14:01 Source of Information: Reports: Patient History Limitations: Reports: No Limitations - History of Present Illness INITIAL COMMENTS - FREE TEXT/NARRATIVE: pt had a RNY in 2006. She did losse and maintain off 200 lbs. She had surgery in november for adhesions. She has not vomited but she does feel nauseated. She is not passing gas. She did have a small stool this am. She is erinn uncomfortable at this time. Onset: Sudden, Other ( started at 2 thirty this am. ) Duration: Hour(s): Location: Reports: Abdomen, Generalized Associated Symptoms: Reports: Other (nausea and abdomanal pain) Abdomen Pain Score (Numeric/FACES): 6 - Related Data Allergies Allergy/AdvReac Type Severity Reaction Status Date / Time No Known Allergies Allergy Verified 03/01/21 13:12 Home Meds: Home Meds L.acidoph,Paracasei, B.lactis [Probiotic] 1 each PO DAILY 05/26/19 [History] Magnesium Oxide 400 mg PO DAILY 05/26/19 [History] Ascorbic Acid [Vitamin C] 500 mg PO DAILY 07/02/19 [History] Cholecalciferol (Vitamin D3) [Vitamin D] 5,000 unit PO DAILY 07/02/19 [History] Naltrexone 50 mg PO TID 07/02/19 [History] buPROPion [Wellbutrin] 75 mg PO TID 07/02/19 [History] Glucosam/Chond/Collagen/Hyalur [Glucosamine Chondroitin] 1 cap PO BID 12/14/20 [History] HYDROmorphone HCl [Hydromorphone HCl] 2 mg PO Q4HR 03/01/21 [History] Past Medical History HEENT History: Reports: Cataract Other HEENT History: glasses Cardiovascular History: Reports: Hypertension Other Cardiovascular History: no meds Respiratory History: Reports: None Gastrointestinal History: Reports: Celiac Disease, Chronic Diarrhea Other Gastrointestinal History: RECENT DIAGNOSIS GLUTEN ALLERGY Genitourinary History: Reports: None RUSH SEATER History: Reports: Other RUSH SEATER History: Musculoskeletal History: Reports: Osteoarthritis - Infectious Disease History Infectious Disease History: Reports: Chicken Pox, Measles, Mumps - Past Surgical History HEENT Surgical History: Reports: None GI Surgical History: Reports: Bariatric Procedure, Lysis of Adhesions Other GI Surgeries/Procedures: Rouen Y 2013, lysis of ahesions in may 2020 Social & Family History - Family History Family Medical History: No Pertinent Family History - Tobacco Use Tobacco Use Status *Q: Former Tobacco User Used Tobacco, but Quit: Yes Month/Year Tobacco Last Used: 30 years - Caffeine Use Caffeine Use: Reports: Coffee Caffeine Use Comment: 2 pots of coffee - Recreational Drug Use Recreational Drug Use: No - Living Situation & Occupation Living situation: Reports: Single, with Significant Other (lives in [place] with roommate) ED ROS GENERAL - Review of Systems Review Of Systems: See Below Constitutional: Reports: Malaise, Decreased Appetite HEENT: Reports: No Symptoms Respiratory: Reports: No Symptoms Cardiovascular: Reports: No Symptoms Endocrine: Reports: No Symptoms GI/Abdominal: Reports: Abdominal Pain, Decreased Appetite, Nausea : Reports: No Symptoms Musculoskeletal: Reports: No Symptoms ED EXAM, GI/ABD - Physical Exam Exam: See Below Text/Narrative:: pt arrived with pain in her mid abdoman. She was nauseated but not vomiting. She had surrgery in November for a bowel obstruction Exam Limited By: No Limitations General Appearance: Alert, Moderate Distress, Other (pupils equal and reactive. ) Ears: Normal TMs Nose: Normal Inspection Throat/Mouth: Normal Inspection Head: Atraumatic Neck: Normal Inspection Respiratory/Chest: No Respiratory Distress Cardiovascular: Regular Rate, Rhythm GI/Abdominal Exam: Tender, Other (pt has marked tenderness in the mid abdoman. ) (Female) Exam: Deferred Rectal (Female) Exam: Deferred Back Exam: Normal Inspection Extremities: Normal Inspection Neurological: Alert, Oriented, Normal Cognition Psychiatric: Anxious Course - Vital Signs Last Recorded V/S: Last Vital Signs Temp 36.5 C 03/01/21 13:08 Pulse 69 03/01/21 16:14 Resp 16 03/01/21 13:08 BP 133/80 03/01/21 16:14 Pulse Ox 92 L 03/01/21 16:14 - Orders/Labs/Meds Orders: Active Orders 24 hr Category Date Time Status Iopamidol [Isovue-300 (61%)] Med 03/01/21 15:30 Active 130 ml IV . DIRECTED Sodium Chloride 0.9% [Normal Saline] 1,000 ml Med 03/01/21 14:00 Active IV ASDIRECTED Sodium Chloride 0.9% [Normal Saline] 1,000 ml Med 03/01/21 17:15 Ordered IV ASDIRECTED Sodium Chloride 0.9% [Normal Saline] 80 ml Med 03/01/21 15:30 Active IV ASDIRECTED Medication Orders Sodium Chloride (Normal Saline) 1,000 mls @ 999 mls/hr IV ASDIRECTED QUEENIE Last Admin: 03/01/21 14:18 Dose: 999 mls/hr Documented by: PREILOR Sodium Chloride (Normal Saline) 80 mls @ 3 mls/sec IV ASDIRECTED QUEENIE Last Admin: 03/01/21 15:39 Dose: 3 mls/sec Documented by: PycnoALY Iopamidol (Iopamidol 612 Mg/Ml 150 Ml Bottle) 130 ml IV . DIRECTED QUEENIE Last Admin: 03/01/21 15:39 Dose: 130 ml Documented by: [employer] Labs: Laboratory Tests 03/01/21 03/01/21 03/01/21 Range/Units 14:07 14:07 14:07 WBC 6.0 (4.5-11.0) K/uL RBC 3.31 (3.30-5.50) M/uL Hgb 10.2 L (12.0-15.0) g/dL Hct 32.4 L (36.0-48.0) % MCV 98 (80-98) fL MCH 31 (27-31) pg MCHC 32 (32-36) % Plt Count 181 (150-400) K/uL Neut % (Auto) 52.7 (36-66) % Lymph % (Auto) 24.2 (24-44) % [place] % (Auto) 22.2 H (2-6) % Eos % (Auto) 0.2 L (2-4) % Baso % (Auto) 0.7 (0-1) % Sodium 140 (140-148) mmol/L Potassium 3.9 (3.6-5.2) mmol/L Chloride 102 (100-108) mmol/L Carbon Dioxide 28 (21-32) mmol/L Anion Gap 10.0 (5.0-14.0) mmol/L BUN 14 (7-18) mg/dL Creatinine 0.7 (0.6-1.0) mg/dL Est Cr Clr Drug Dosing 84.62 mL/min Estimated GFR (MDRD) > 60 (>60) Glucose 90 (74-106) mg/dL Lactic Acid (0.4-2.0) mmol/L Calcium 9.0 (8.5-10.1) mg/dL Total Bilirubin 0.8 D (0.2-1.0) mg/dL AST 18 (15-37) U/L ALT 29 (12-78) U/L Alkaline Phosphatase 88 (46-116) U/L C-Reactive Protein 0.05 (0.0-0.3) mg/dL Total Protein 6.9 (6.4-8.2) g/dL Albumin 3.7 (3.4-5.0) g/dL Globulin 3.2 (2.3-3.5) g/dL Albumin/Globulin Ratio 1.2 (1.2-2.2) Urine Color (YELLOW) Urine Appearance (CLEAR) Urine pH (5.0-8.0) Ur Specific [place] (1.008-1.030) Urine Protein (NEGATIVE) mg/dL Urine Glucose (UA) (NEGATIVE) mg/dL Urine Ketones (NEGATIVE) mg/dL Urine Occult Blood (NEGATIVE) Urine Nitrite (NEGATIVE) Urine Bilirubin (NEGATIVE) Urine Urobilinogen (0.2-1.0) EU/dL Ur Leukocyte Esterase (NEGATIVE) Urine RBC (0-5) Urine WBC (0-5) Ur Epithelial Cells Amorphous Sediment Urine Bacteria Urine Mucus 03/01/21 03/01/21 Range/Units 14:07 15:13 WBC (4.5-11.0) K/uL RBC (3.30-5.50) M/uL Hgb (12.0-15.0) g/dL Hct (36.0-48.0) % MCV (80-98) fL MCH (27-31) pg MCHC (32-36) % Plt Count (150-400) K/uL Neut % (Auto) (36-66) % Lymph % (Auto) (24-44) % [place] % (Auto) (2-6) % Eos % (Auto) (2-4) % Baso % (Auto) (0-1) % Sodium (140-148) mmol/L Potassium (3.6-5.2) mmol/L Chloride (100-108) mmol/L Carbon Dioxide (21-32) mmol/L Anion Gap (5.0-14.0) mmol/L BUN (7-18) mg/dL Creatinine (0.6-1.0) mg/dL Est Cr Clr Drug Dosing mL/min Estimated GFR (MDRD) (>60) Glucose (74-106) mg/dL Lactic Acid 0.4 (0.4-2.0) mmol/L Calcium (8.5-10.1) mg/dL Total Bilirubin (0.2-1.0) mg/dL AST (15-37) U/L ALT (12-78) U/L Alkaline Phosphatase (46-116) U/L C-Reactive Protein (0.0-0.3) mg/dL Total Protein (6.4-8.2) g/dL Albumin (3.4-5.0) g/dL Globulin (2.3-3.5) g/dL Albumin/Globulin Ratio (1.2-2.2) Urine Color Yellow (YELLOW) Urine Appearance Clear (CLEAR) Urine pH 5.5 (5.0-8.0) Ur Specific [place] 1.020 (1.008-1.030) Urine Protein Negative (NEGATIVE) mg/dL Urine Glucose (UA) Negative (NEGATIVE) mg/dL Urine Ketones Negative (NEGATIVE) mg/dL Urine Occult Blood Negative (NEGATIVE) Urine Nitrite Negative (NEGATIVE) Urine Bilirubin Negative (NEGATIVE) Urine Urobilinogen 0.2 (0.2-1.0) EU/dL Ur Leukocyte Esterase Negative (NEGATIVE) Urine RBC Not seen (0-5) Urine WBC Not seen (0-5) Ur Epithelial Cells Not seen Amorphous Sediment Rare Urine Bacteria Not seen Urine Mucus Not seen Meds: Medications Generic Name Dose Route Start Last Admin Trade Name Freq PRN Reason Stop Dose Admin Sodium Chloride 1,000 mls @ 999 mls/hr 03/01/21 14:00 03/01/21 14:18 Normal Saline IV 999 mls/hr ASDIRECTED QUEENIE Administration Sodium Chloride 80 mls @ 3 mls/sec 03/01/21 15:30 03/01/21 15:39 Normal Saline IV 3 mls/sec ASDIRECTED QUEENIE Administration Iopamidol 130 ml 03/01/21 15:30 03/01/21 15:39 Iopamidol 612 Mg/Ml 150 Ml Bottle IV 130 ml . DIRECTED QUEENIE Administration Discontinued Medications Generic Name Dose Route Start Last Admin Trade Name Forrest PRN Reason Stop Dose Admin Hydromorphone HCl 0.5 mg 03/01/21 14:00 03/01/21 14:18 Hydromorphone 0.5 Mg/0.5 Ml Syringe IVPUSH 03/01/21 14:01 0.5 mg ONETIME ONE Administration Hydromorphone HCl 0.5 mg 03/01/21 17:07 Hydromorphone 0.5 Mg/0.5 Ml Syringe IVPUSH 03/01/21 17:08 ONETIME ONE Ondansetron HCl 4 mg 03/01/21 13:59 03/01/21 14:18 Ondansetron 4 Mg/2 Ml Sdv IVPUSH 03/01/21 14:00 4 mg ONETIME ONE Administration - Re-Assessments/Exams Free Text/Narrative Re-Assessment/Exam: 03/01/21 17:18 cat scan of the abdoman with contrast shows a small bowel obstruction pt has a clear urine. her other labs look good. 03/01/21 17:21 Departure - Departure Time of Disposition: 17:14 Disposition: Admitted As Inpatient 64 Condition: Fair Clinical Impression: Small bowel obstruction, Dehydration - Discharge Information Referrals: Parrish Escobar MD [Primary Care Provider] - Forms: ED Department Discharge Care Plan Goals: admit to Dr Christopher Sepsis Event Note (ED) - Evaluation Sepsis Screening Result: No Definite Risk - Focused Exam Vital Signs: Vital Signs Temp Pulse Resp BP Pulse Ox 03/01/21 16:14 69 133/80 92 L 03/01/21 13:08 36.5 C 78 16 125/84 98 - My Orders Last 24 Hours: My Active Orders 03/01/21 14:00 Sodium Chloride 0.9% [Normal Saline] 1,000 ml IV ASDIRECTED 03/01/21 15:30 Iopamidol [Isovue-300 (61%)] 130 ml IV . DIRECTED Sodium Chloride 0.9% [Normal Saline] 80 ml IV ASDIRECTED 03/01/21 17:15 Sodium Chloride 0.9% [Normal Saline] 1,000 ml IV ASDIRECTED - Assessment/Plan Last 24 Hours: My Active Orders 03/01/21 14:00 Sodium Chloride 0.9% [Normal Saline] 1,000 ml IV ASDIRECTED 03/01/21 15:30 Iopamidol [Isovue-300 (61%)] 130 ml IV . DIRECTED Sodium Chloride 0.9% [Normal Saline] 80 ml IV ASDIRECTED 03/01/21 17:15 Sodium Chloride 0.9% [Normal Saline] 1,000 ml IV ASDIRECTED
[2021-03-01] MEDS ORDERED: Sodium Chloride 0.9% 80 ML IV SCH (15:30)
[2021-03-01] MEDS ORDERED: Iopamidol 612 MG/ML 150 ML Bottle IV SCH (15:30)
--- NOTE | 2021-03-01 16:57 | CRLCT ---
INDICATION: Mid abdominal pain. TECHNIQUE: CT abdomen and pelvis acquired with 130 cc Isovue-300 IV contrast. COMPARISON: January 10, 2021. FINDINGS: Lower chest: Unremarkable. Liver: Unremarkable. Normal in size and attenuation. No suspicious masses. Gallbladder and bile ducts: Unremarkable. No stones or inflammation. No biliary dilatation. Pancreas: Unremarkable. No mass or inflammation. Spleen: Unremarkable. Normal in size. No masses. Adrenal glands: Unremarkable. No nodules. Kidneys: Unremarkable. No suspicious masses, stones, or hydronephrosis. GI tract: There are Macy EN Y gastric bypass changes. There is a segment of small bowel in the central abdomen dilated up to 5.5 cm containing a large amount of food material. Findings are consistent with a bowel obstruction which is possibly a closed loop obstruction. It is difficult to determine the relationship of this abnormally dilated bowel loop to the bypass changes. Remainder of the GI tract is unremarkable. Vasculature: Unremarkable. Mesenteric arteries are patent. Lymph nodes: No lymphadenopathy. Omentum/Peritoneum/Abdominal Wall: Unremarkable. No sign of mass or infiltration. No free air or significant free fluid. Pelvis: Unremarkable. Bones: Unremarkable for age. IMPRESSION: A single dilated loop of small bowel in the central abdomen consistent with a small bowel obstruction and possibly a closed loop obstruction. Surgical consultation is recommended for management of this finding. It is difficult to discern how this abnormal bowel loop is related to the gastric bypass changes. No other acute or significant findings. Dictated by Domingo Madden MD @ 03/01/2021 4:56:44 PM Please note that all CT scans at this facility use dose modulation, iterative reconstruction, and/or weight-based dosing when appropriate to reduce radiation dose to as low as reasonably achievable. Dictated by: Domingo Madden MD @ 03/01/2021 16:56:55 (Electronically Signed)
--- NOTE | 2021-03-01 17:26 | PCM.HP.2 ---
H&P History of Present Illness - General Date of Service: 03/01/21 Admit Problem/Dx: Admission Diagnosis/Problem Admission Diagnosis/Problem Abdominal pain Source of Information: Patient, Old Records, Provider, RN Notes Reviewed History Limitations: Reports: No Limitations - History of Present Illness Initial Comments - Free Text/Narative: Ms. Stark is a 55-year-old woman who was admitted through the emergency department with nausea and abdominal pain secondary to a small bowel obstruction. She is status post Macy-en-Y gastric bypass surgery. Over the past few years has had difficulty with intestinal obstructions. She had 2 exploratory laparotomy is for lysis of adhesions in the fall 2018. She experienced symptoms again in November of this past year and did undergo another surgery for obstruction. She had been feeling well, until she woke early this morning with abdominal pain and nausea. Symptoms persisted and worsened through the day so she presented to the emergency department for further evaluation. CT scan shows evidence of a small bowel obstruction. She has had no vomiting thus far and has been hemodynamically stable. Abdomen Pain Score (Numeric/FACES): 2 - Related Data Allergies/Adverse Reactions: Allergies Allergy/AdvReac Type Severity Reaction Status Date / Time No Known Allergies Allergy Verified 03/01/21 13:12 Home Medications: Home Meds L.acidoph,Paracasei, B.lactis [Probiotic] 1 each PO DAILY 05/26/19 [History] Magnesium Oxide 400 mg PO DAILY 05/26/19 [History] Ascorbic Acid [Vitamin C] 500 mg PO DAILY 07/02/19 [History] Cholecalciferol (Vitamin D3) [Vitamin D] 5,000 unit PO DAILY 07/02/19 [History] Naltrexone 50 mg PO TID 07/02/19 [History] buPROPion [Wellbutrin] 75 mg PO TID 07/02/19 [History] Glucosam/Chond/Collagen/Hyalur [Glucosamine Chondroitin] 1 cap PO BID 12/14/20 [History] HYDROmorphone HCl [Hydromorphone HCl] 2 mg PO Q4HR 03/01/21 [History] Past Medical History HEENT History: Reports: Cataract Other HEENT History: glasses Cardiovascular History: Reports: Hypertension Other Cardiovascular History: no meds Respiratory History: Reports: None Gastrointestinal History: Reports: Celiac Disease, Chronic Diarrhea Other Gastrointestinal History: RECENT DIAGNOSIS GLUTEN ALLERGY Genitourinary History: Reports: None FORENSIC NURSE History: Reports: Other OB/BYN History: Musculoskeletal History: Reports: Osteoarthritis - Infectious Disease History Infectious Disease History: Reports: Chicken Pox, Measles, Mumps - Past Surgical History HEENT Surgical History: Reports: None GI Surgical History: Reports: Bariatric Procedure, Lysis of Adhesions Other GI Surgeries/Procedures: Rouen Y 2013, lysis of ahesions in may 2020 Social & Family History - Family History Family Medical History: No Pertinent Family History - Tobacco Use Tobacco Use Status *Q: Former Tobacco User Used Tobacco, but Quit: Yes Month/Year Tobacco Last Used: 30 years - Caffeine Use Caffeine Use: Reports: Coffee Caffeine Use Comment: 2 pots of coffee - Recreational Drug Use Recreational Drug Use: No - Living Situation & Occupation Living situation: Reports: Single, with Significant Other (lives in [place] with roommate) H&P Review of Systems - Review of Systems: Review Of Systems: See Below General: Reports: Decreased Appetite. Denies: Fever, Chills, Malaise, Weakness, Fatigue HEENT: Reports: No Symptoms Pulmonary: Reports: No Symptoms Cardiovascular: Reports: No Symptoms Gastrointestinal: Reports: Abdominal Pain, Distension, Nausea. Denies: Constipation, Diarrhea, Difficulty Swallowing, Hematemesis, Hematochezia, Melena, Vomiting Genitourinary: Reports: No Symptoms Musculoskeletal: Reports: No Symptoms Skin: Reports: No Symptoms Psychiatric: Reports: No Symptoms Neurological: Reports: No Symptoms Hematologic/Lymphatic: Reports: No Symptoms Immunologic: Reports: No Symptoms Exam - Exam Exam: See Below - Vital Signs Vital Signs: Last Vital Signs Temp 97.7 F 03/01/21 13:08 Pulse 67 03/01/21 17:23 Resp 16 03/01/21 13:08 BP 128/86 03/01/21 17:23 Pulse Ox 95 03/01/21 17:23 Weight: 192 lb 7.417 oz - Exam Quality Assessment: DVT Prophylaxis General: Alert, Oriented, Cooperative, Moderate Distress HEENT: Conjunctiva Clear, Hearing Intact, Normal Nasal Septum, Posterior Pharynx Clear, Pupils Equal. No: Mucosa Moist & [place] Neck: Supple, Trachea Midline, +2 Carotid Pulse wo Bruit Lungs: Clear to Auscultation, Normal Respiratory Effort Cardiovascular: Regular Rate, Regular Rhythm, Normal S1, Normal S2. No: Systolic Murmur, Diastolic Murmur GI/Abdominal Exam: Soft, No Organomegaly, Distended, Tender. No: Guarding, Rigid, Rebound Back Exam: Normal Inspection, Full Range of Motion Extremities: Non-Tender, No Pedal Edema Skin: Warm, Dry, Intact Neurological: Cranial Nerves Intact, Strength Equal Bilateral, Normal Speech, Normal Tone, Sensation Intact. No: Focal Deficit Neuro Extensive - Mental Status: Alert, Oriented x3, Normal Mood/Affect, Normal Cognition, Memory Intact - Patient Data Lab Results Last 24 hrs: Laboratory Results - last 24 hr 03/01/21 03/01/21 03/01/21 Range/Units 14:07 14:07 14:07 WBC 6.0 (4.5-11.0) K/uL RBC 3.31 (3.30-5.50) M/uL Hgb 10.2 L (12.0-15.0) g/dL Hct 32.4 L (36.0-48.0) % MCV 98 (80-98) fL MCH 31 (27-31) pg MCHC 32 (32-36) % Plt Count 181 (150-400) K/uL Neut % (Auto) 52.7 (36-66) % Lymph % (Auto) 24.2 (24-44) % [place] % (Auto) 22.2 H (2-6) % Eos % (Auto) 0.2 L (2-4) % Baso % (Auto) 0.7 (0-1) % Sodium 140 (140-148) mmol/L Potassium 3.9 (3.6-5.2) mmol/L Chloride 102 (100-108) mmol/L Carbon Dioxide 28 (21-32) mmol/L Anion Gap 10.0 (5.0-14.0) mmol/L BUN 14 (7-18) mg/dL Creatinine 0.7 (0.6-1.0) mg/dL Est Cr Clr Drug Dosing 84.62 mL/min Estimated GFR (MDRD) > 60 (>60) Glucose 90 (74-106) mg/dL Lactic Acid (0.4-2.0) mmol/L Calcium 9.0 (8.5-10.1) mg/dL Total Bilirubin 0.8 D (0.2-1.0) mg/dL AST 18 (15-37) U/L ALT 29 (12-78) U/L Alkaline Phosphatase 88 (46-116) U/L C-Reactive Protein 0.05 (0.0-0.3) mg/dL Total Protein 6.9 (6.4-8.2) g/dL Albumin 3.7 (3.4-5.0) g/dL Globulin 3.2 (2.3-3.5) g/dL Albumin/Globulin Ratio 1.2 (1.2-2.2) Urine Color (YELLOW) Urine Appearance (CLEAR) Urine pH (5.0-8.0) Ur Specific [place] (1.008-1.030) Urine Protein (NEGATIVE) mg/dL Urine Glucose (UA) (NEGATIVE) mg/dL Urine Ketones (NEGATIVE) mg/dL Urine Occult Blood (NEGATIVE) Urine Nitrite (NEGATIVE) Urine Bilirubin (NEGATIVE) Urine Urobilinogen (0.2-1.0) EU/dL Ur Leukocyte Esterase (NEGATIVE) Urine RBC (0-5) Urine WBC (0-5) Ur Epithelial Cells Amorphous Sediment Urine Bacteria Urine Mucus 03/01/21 03/01/21 Range/Units 14:07 15:13 WBC (4.5-11.0) K/uL RBC (3.30-5.50) M/uL Hgb (12.0-15.0) g/dL Hct (36.0-48.0) % MCV (80-98) fL MCH (27-31) pg MCHC (32-36) % Plt Count (150-400) K/uL Neut % (Auto) (36-66) % Lymph % (Auto) (24-44) % [place] % (Auto) (2-6) % Eos % (Auto) (2-4) % Baso % (Auto) (0-1) % Sodium (140-148) mmol/L Potassium (3.6-5.2) mmol/L Chloride (100-108) mmol/L Carbon Dioxide (21-32) mmol/L Anion Gap (5.0-14.0) mmol/L BUN (7-18) mg/dL Creatinine (0.6-1.0) mg/dL Est Cr Clr Drug Dosing mL/min Estimated GFR (MDRD) (>60) Glucose (74-106) mg/dL Lactic Acid 0.4 (0.4-2.0) mmol/L Calcium (8.5-10.1) mg/dL Total Bilirubin (0.2-1.0) mg/dL AST (15-37) U/L ALT (12-78) U/L Alkaline Phosphatase (46-116) U/L C-Reactive Protein (0.0-0.3) mg/dL Total Protein (6.4-8.2) g/dL Albumin (3.4-5.0) g/dL Globulin (2.3-3.5) g/dL Albumin/Globulin Ratio (1.2-2.2) Urine Color Yellow (YELLOW) Urine Appearance Clear (CLEAR) Urine pH 5.5 (5.0-8.0) Ur Specific [place] 1.020 (1.008-1.030) Urine Protein Negative (NEGATIVE) mg/dL Urine Glucose (UA) Negative (NEGATIVE) mg/dL Urine Ketones Negative (NEGATIVE) mg/dL Urine Occult Blood Negative (NEGATIVE) Urine Nitrite Negative (NEGATIVE) Urine Bilirubin Negative (NEGATIVE) Urine Urobilinogen 0.2 (0.2-1.0) EU/dL Ur Leukocyte Esterase Negative (NEGATIVE) Urine RBC Not seen (0-5) Urine WBC Not seen (0-5) Ur Epithelial Cells Not seen Amorphous Sediment Rare Urine Bacteria Not seen Urine Mucus Not seen Result Diagrams: 03/01/21 14:07 03/01/21 14:07 Sepsis Event Note - Evaluation Sepsis Screening Result: No Definite Risk - Focused Exam Vital Signs: Vital Signs Temp Pulse Resp BP Pulse Ox 03/01/21 17:23 67 128/86 95 03/01/21 16:14 69 133/80 92 L 03/01/21 13:08 97.7 F 78 16 125/84 98 *Q Meaningful Use (ADM) - VTE *Q VTE Pharmacological Contraindications *Q: Patient Scheduled Surgery - VTE Risk Assess *Q Each Risk Factor Represents 1 Point: Age 41 - 59 years, Obesity ( BMI > 25 kg/m2) Total Score 1 Point Risk Factors: 2 Each Risk Factor Represents 2 Points: None Total Score 2 Point Risk Factors: 0 Each Risk Factor Represents 3 Points: None Total Score 3 Point Risk Factors: 0 Each Risk Factor Represents 5 Points: None Total Score 5 Point Risk Factors: 0 Venous Thromboembolism Risk Factor Score *Q: 2 Problem List Initiated/Reviewed/Updated: Yes Orders Last 24hrs: Active Orders 24 hr Category Date Time Status Patient Status Manage Transfer [TRANSFER] Routine ADT 03/01/21 17:18 Active Iopamidol [Isovue-300 (61%)] Med 03/01/21 15:30 Active 130 ml IV . DIRECTED Sodium Chloride 0.9% [Normal Saline] 1,000 ml Med 03/01/21 14:00 Active IV ASDIRECTED Sodium Chloride 0.9% [Normal Saline] 1,000 ml Med 03/01/21 17:15 Active IV ASDIRECTED Sodium Chloride 0.9% [Normal Saline] 80 ml Med 03/01/21 15:30 Active IV ASDIRECTED Resuscitation Status Routine Resus Stat 03/01/21 17:21 Ordered Medication Orders Sodium Chloride (Normal Saline) 1,000 mls @ 999 mls/hr IV ASDIRECTED [facility] Last Admin: 03/01/21 14:18 Dose: 999 mls/hr Documented by: PREILOR Sodium Chloride (Normal Saline) 80 mls @ 3 mls/sec IV ASDIRECTED [facility] Last Admin: 03/01/21 15:39 Dose: 3 mls/sec Documented by: STEPHANIE Sodium Chloride (Normal Saline) 1,000 mls @ 300 mls/hr IV ASDIRECTED [facility] Iopamidol (Iopamidol 612 Mg/Ml 150 Ml Bottle) 130 ml IV . DIRECTED [facility] Last Admin: 03/01/21 15:39 Dose: 130 ml Documented by: STEPHANIE Assessment/Plan Comment:: ASSESSMENT AND PLAN SMALL BOWEL OBSTRUCTION-prior history of gastric bypass surgery, over the past 2 years has had 3 previous episodes of bowel obstruction requiring surgical intervention. Abrupt onset of symptoms early this morning with abdominal pain and nausea. -N.p.o. -IV fluids for hydration -Medication for pain and nausea as needed -Abdominal flatplate and upright x-ray in a.m. -Dr. Escobar to see and assume care in a.m. STATUS POST GASTRIC BYPASS SURGERY -Hold supplements because of obstruction MAINTENANCE ISSUES -DVT prophylaxis; SCUDs -GI prophylaxis; not indicated -Oquendo catheter; not indicated -Nutrition; n.p.o. -Nicotine dependence; not required CODE STATUS-FULL CODE ADMISSION STATUS-patient will be admitted to inpatient status, expect at least a 2 night hospital stay for evaluation and management of problems as outlined [email or web address]. At the time of this admission I do not reasonably expected evaluation and management of this problem will require more than a 96 hour hospital stay. DISPOSITION-anticipate discharge to home after the hospital stay. - Mortality Measure Prognosis:: Good
[2021-03-01] MEDS ORDERED: Sodium Chloride 0.9% 10 ML Syringe FLUSH PRN (18:33)
[2021-03-01] MEDS ORDERED: Ondansetron 4 MG/2 ML SDV IV PRN (18:33)
[2021-03-01] MEDS ORDERED: HYDROmorphone 0.5 MG/0.5 ML Syringe IVPUSH PRN (18:33)
[2021-03-01] MEDS: Lactated Ringers 1,000 ML IV SCH (21:11)
[2021-03-01] MEDS ORDERED: Acetaminophen 500 MG Tab PO PRN (22:04)
[2021-03-02] MEDS: Lactated Ringers 1,000 ML IV SCH (05:14)
[2021-03-02] MEDS ORDERED: Non-Formulary Medication 1 Each IV ONE ×2 (07:14)
[2021-03-02] MEDS ORDERED: Ketamine 500 MG/5 ML MDV IV SCH ×3 (07:15→12:00)
[2021-03-02] MEDS ORDERED: Magnesium Sulfate/Water 2 GM/50 ML BAG IV SCH ×2 (07:15→12:00)
--- NOTE | 2021-03-02 08:27 | PN ---
DATE OF SERVICE: 03/02/2021 SUBJECTIVE: Melisa presented to the Emergency Department [facility] with severe abdominal pain. CT scan showed a segment of small bowel in the central abdomen, dilated to 5.5 cm, containing a large amount of food material consistent with a bowel obstruction which is possibly a closed-loop obstruction. She was admitted last evening and reports that she has a little bit of pain, but states she has not eaten anything. Her biggest concern right now is that she has a severe headache she states from no caffeine, usually drinks 1 pot of coffee every morning. Has had no fever. REVIEW OF SYSTEMS: Remainder of review of systems negative for any pertinent positives and negatives. LABORATORY DATA: Labs were reviewed. Magnesium was 1.7. OBJECTIVE: GENERAL: Melisa is a pleasant 55-year-old female, alert and orientated. VITAL SIGNS: TPR is 97.5, 86, 18, blood pressure 108/79. HEENT: Negative. NECK: Supple. HEART: Regular rate and rhythm. LUNGS: Clear. ABDOMEN: Generalized tenderness in all 4 quadrants. Left mid quadrant has the most pain. EXTREMITIES: Without peripheral edema. NEUROLOGIC: Intact. SKIN: Without rash. ASSESSMENT: Small bowel obstruction. PLAN: 1. Schedule and have consent signed for exploratory laparotomy with release of bowel obstruction, possible bowel resection, and possible lysis of adhesions. Case to follow, 03/02/2021. General anesthesia, TAP block, ketamine bolus and drip, and magnesium bolus and drip all ordered. 2. Cefoxitin 2 g IV on-call to OR. 3. May have 2 cups of coffee between 7 and 8 a.m., then n.p.o. Surgery scheduled early afternoon. 4. We will evaluate p.r.n. or in a.. Ana Pearson PA-C /[id number]
[2021-03-02] MEDS ORDERED: fentaNYL 250 MCG/5 ML SDV ONE (08:31)
[2021-03-02] MEDS ORDERED: Propofol 200 MG/20 ML SDV ONE (08:32)
[2021-03-02] MEDS ORDERED: Dexamethasone 4 MG/ML SDV ONE (08:32)
[2021-03-02] MEDS ORDERED: Glycopyrrolate 0.2 MG/ML 5 ML MDV ONE (08:32)
[2021-03-02] MEDS ORDERED: Rocuronium 50 MG/5 ML Vial ONE (08:32)
[2021-03-02] MEDS ORDERED: Succinylcholine 200 MG/10 ML MDV ONE (08:32)
[2021-03-02] MEDS ORDERED: Neostigmine Methylsulfate 1 MG/ML 5 ML Syringe ONE (08:32)
[2021-03-02] MEDS ORDERED: Ondansetron 4 MG/2 ML SDV ONE (08:32)
--- NOTE | 2021-03-02 09:32 | CR ---
Abdomen 2V AP Upright Decub CLINICAL HISTORY: Follow-up SBO FINDINGS: Patient has had previous abdominal surgery. This may be bariatric surgery. There is persistent dilated small bowel. There is some fecalization of bowel content in these dilated loops. This is also seen on the prior day's CT abdomen. There is been a slight increase in gas within the rectosigmoid colon IMPRESSION: Persistent distention of small bowel. There is no significant change since prior day's CT.
[2021-03-02] MEDS ORDERED: Lidocaine 1% with EPINEPHrine 1:100,000 50 ML MDV ONE (10:13)
[2021-03-02] MEDS ORDERED: Meropenem 500 MG SDV ONE (10:13)
[2021-03-02] MEDS ORDERED: Bupivacaine 0.5% 50 ML MDV ONE (10:14)
[2021-03-02] MEDS ORDERED: Ketamine 50 MG in Sodium Chloride 0.9% 49.5 ML IV SCH (12:00)
[2021-03-02] MEDS ORDERED: cefOXitin 2 GM in Sodium Chloride 0.9% 50 ML IV ONE (12:00)
[2021-03-02] MEDS ORDERED: Ropivacaine 44 ML, dexAMETHasone 8 MG, EPINEPHrine 0.4 MG, Sodium Chloride 0.9% 33.6 ML NERVRT SCH ×4 (12:00)
[2021-03-02] MEDS ORDERED: Lactated Ringers 1,000 ML ONE (12:36)
[2021-03-02] MEDS ORDERED: ePHEDrine 50 MG/ML SDV ONE (12:57)
[2021-03-02] MEDS ORDERED: Sodium Chloride 0.9% 10 ML ONE (12:57)
[2021-03-02] MEDS ORDERED: fentaNYL 100 MCG/2 ML SDV ONE (13:47)
[2021-03-02] MEDS ORDERED: hydrOXYzine HCL 100 MG/2 ML SDV IM ONE (14:07)
[2021-03-02] MEDS ORDERED: fentaNYL 100 MCG/2 ML SDV IVPUSH ONE (14:15)
[2021-03-02] MEDS ORDERED: Naloxone 0.4 MG/ML SDV IVPUSH PRN (14:16)
[2021-03-02] MEDS ORDERED: Cyclobenzaprine 10 MG Tab PO PRN (14:36)
[2021-03-02] MEDS: HYDROmorphone/Normal Saline 15 MG/30 ML PCA IV PRN (14:54)
[2021-03-02] MEDS ORDERED: Acetaminophen 500 MG Tab PO PRN (15:00)
[2021-03-02] MEDS ORDERED: diphenhydrAMINE 50 MG/ML SDV IVPUSH PRN (15:00)
[2021-03-02] MEDS ORDERED: Labetalol 20 MG/4 ML Syringe IVPUSH PRN (15:00)
[2021-03-02] MEDS ORDERED: Metoclopramide 10 MG/2 ML SDV IVPUSH PRN (15:00)
[2021-03-02] MEDS ORDERED: Naloxone 0.4 MG/ML SDV IV PRN (15:00)
[2021-03-02] MEDS ORDERED: Calcium Gluconate 10% 1 GM/10 ML SDV IVPUSH PRN (15:00)
[2021-03-02] MEDS ORDERED: hydrOXYzine HCL 100 MG/2 ML SDV IM PRN (15:00)
[2021-03-02] MEDS ORDERED: Ondansetron 4 MG/2 ML SDV IVPUSH PRN (15:00)
[2021-03-02] MEDS: Acetaminophen 500 MG Tab PO SCH ×2 (15:19→21:16)
[2021-03-02] MEDS: Pantoprazole 40 MG Vial IVPUSH SCH (16:07)
[2021-03-02] MEDS: MVI, Adult with Vitamin K 10 ML, Thiamine 200 MG, Zinc/Copper/Manganese/Selenium 1 ML i... IV SCH ×4 (16:16)
[2021-03-02] MEDS: cefOXitin 2 GM in Sodium Chloride 0.9% 50 ML IV SCH ×2 (17:44→23:44)
[2021-03-02] MEDS: Dextrose 5%-Lactated Ringers 1,000 ML IV SCH (22:40)
[2021-03-03] MEDS ORDERED: Iopamidol 612 MG/ML 50 ML SDV PO STA (04:39)
[2021-03-03] MEDS: Dextrose 5%-Lactated Ringers 1,000 ML IV SCH ×2 (05:29→14:57)
[2021-03-03] MEDS: cefOXitin 2 GM in Sodium Chloride 0.9% 50 ML IV SCH ×4 (05:30→23:11)
[2021-03-03] MEDS: HYDROmorphone/Normal Saline 15 MG/30 ML PCA IV PRN (05:36)
[2021-03-03] MEDS: Acetaminophen 500 MG Tab PO SCH ×3 (05:39→21:26)
[2021-03-03] MEDS: Celecoxib 200 MG Cap PO SCH ×2 (08:47→20:25)
--- NOTE | 2021-03-03 10:02 | PN ---
DATE OF SERVICE: 03/03/2021 SUBJECTIVE: Melisa states the pain is controlled. She is very sleepy. Vital signs have been stable. Oral intake 550. Urine output 1400 via Oquendo catheter. REVIEW OF SYSTEMS: Remainder of review of systems negative for any pertinent positives, negatives. OBJECTIVE: GENERAL: Melisa is a pleasant 55-year-old female. VITAL SIGNS: TPR is 95.4, 107, , blood pressure 107/64. HEENT: Negative. NECK: Supple. HEART: Regular rate and rhythm. LUNGS: Clear. ABDOMEN: Dressings dry and intact. Abdominal binder is on. EXTREMITIES: Without peripheral edema. Oquendo catheter is intact draining a clear kobe urine. ASSESSMENT: 1. Exploratory laparotomy with lysis of adhesions. 2. Small bowel resection. 3. Enterotomy, tube decompression of the small bowel. 4. Recurrent bowel strictureplasty. 5. Repair of incisional hernia. 6. Placement of Interceed mesh. POSTOPERATIVE DIAGNOSES: 1. Small bowel secondary to adhesion proximal to the jejunojejunostomy. 2. 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 3. Nonincarcerated incisional hernia. 4. Nonobstructed, shortened, strictured proximal small bowel. Date of procedure 03/02/2021. Surgeon: Parrish Escobar MD. PLAN: 1. Upper GI was normal. Start step 2 gastric bypass diet without cereal, gluten free. The patient has celiac disease and may have regular coffee. 2. Decrease IV to 100 mL/hr. Check CBC, CMP, mag, phos in a.m. Leave Oquendo catheter in for accurate intake and output. 3. We will evaluate p.r.n. or in a.m. Ana Pearson PA-C /[id number]
[2021-03-03] MEDS ORDERED: Lactated Ringers 1,000 ML IV ONE ×2 (10:43→14:00)
[2021-03-03] MEDS ORDERED: Furosemide 20 MG/2 ML VIAL IVPUSH ONE (11:00)
[2021-03-03] MEDS ORDERED: Lactated Ringers 500 ML IV ONE ×2 (11:08→12:15)
--- NOTE | 2021-03-03 14:38 | CR ---
CHEST: Portable 03/03/2021 at 2:29 PM CLINICAL HISTORY:Leukocytosis, hypotension COMPARISON:2014 FINDINGS: There is less than optimal inspiration. The heart size, pulmonary vascularity and hilar structures are normal. No infiltrate effusion or pneumothorax is seen. IMPRESSION: No acute cardiopulmonary process.
--- NOTE | 2021-03-03 16:03 | PCM.PN ---
- General Info Date of Service: 03/03/21 Subjective Update: Ms. Stark is status post oratory laparotomy performed yesterday because of small bowel obstruction. I am asked to reevaluate her today by Dr. Escobar because of hypotension and decreased urinary output. Other than low blood pressure vital signs have been fairly stable and she has been afebrile. White blood cell count is modestly elevated. She feels tired but denies significant respiratory or urinary symptoms. Functional Status: Reports: Pain Controlled, Ambulating - Review of Systems General: Reports: Weakness, Fatigue. Denies: Fever, Chills Pulmonary: Reports: No Symptoms Cardiovascular: Reports: No Symptoms Gastrointestinal: Reports: Abdominal Pain. Denies: Diarrhea, Difficulty Swallowing, Hematochezia, Melena, Nausea, Vomiting Genitourinary: Reports: No Symptoms, Other (Oquendo catheter) - Patient Data Vitals - Most Recent: Last Vital Signs Temp 95.1 F L 03/03/21 14:10 Pulse 101 H 03/03/21 14:10 Resp 16 03/03/21 14:10 BP 95/57 L 03/03/21 14:10 Pulse Ox 95 03/03/21 14:10 Weight - Most Recent: 199 lb I&O - Last 24 Hours: Intake & Output 03/03/21 03/03/21 03/03/21 06:59 14:59 22:59 Intake Total 1629 2730 Output Total 245 9% 25 Balance 1384 2651 -25 Lab Results Last 24 Hours: Laboratory Results - last 24 hr 03/03/21 03/03/21 Range/Units 04:10 04:10 WBC 14.5 H (4.5-11.0) K/uL RBC 3.09 L (3.30-5.50) M/uL Hgb 9.9 L (12.0-15.0) g/dL Hct 30.0 L (36.0-48.0) % MCV 97 (80-98) fL MCH 32 H (27-31) pg MCHC 33 (32-36) % Plt Count 204 (150-400) K/uL Neut % (Auto) 53.5 (36-66) % Lymph % (Auto) 8.7 L (24-44) % Faulkner % (Auto) 37.6 H (2-6) % Eos % (Auto) 0.1 L (2-4) % Baso % (Auto) 0.1 (0-1) % Sodium 139 L (140-148) mmol/L Potassium 3.8 (3.6-5.2) mmol/L Chloride 102 (100-108) mmol/L Carbon Dioxide 27 (21-32) mmol/L Anion Gap 13.8 (5.0-14.0) mmol/L BUN 12 (7-18) mg/dL Creatinine 0.7 (0.6-1.0) mg/dL Est Cr Clr Drug Dosing 83.46 mL/min Estimated GFR (MDRD) > 60 (>60) Glucose 211 H (74-106) mg/dL Calcium 7.9 L (8.5-10.1) mg/dL Phosphorus 3.2 (2.5-4.9) mg/dL Magnesium 1.9 (1.8-2.4) mg/dL Total Bilirubin 0.6 (0.2-1.0) mg/dL AST 13 L (15-37) U/L ALT 22 (12-78) U/L Alkaline Phosphatase 73 (46-116) U/L NT-Pro-B Natriuret Pep 445 H (5-125) pg/mL Total Protein 5.7 L (6.4-8.2) g/dL Albumin 2.8 L (3.4-5.0) g/dL Globulin 2.9 (2.3-3.5) g/dL Albumin/Globulin Ratio 1.0 L (1.2-2.2) Med Orders - Current: Current Medications Acetaminophen (Acetaminophen 500 Mg Tab) 1,000 mg PO Q8H [facility] Last Admin: 03/03/21 14:17 Dose: 1,000 mg Documented by: Acetaminophen (Acetaminophen 500 Mg Tab) 500 mg PO Q8H PRN PRN Reason: MILD PAIN Bupropion HCl (Bupropion 75 Mg Tab) 75 mg PO TID [facility] Last Admin: 03/03/21 14:17 Dose: 75 mg Documented by: Celecoxib (Celecoxib 200 Mg Cap) 200 mg PO BID [facility] Last Admin: 03/03/21 08:47 Dose: 200 mg Documented by: Cyanocobalamin (Cyanocobalamin (Vitamin B12) 1,000 Mcg/Ml Sdv) 1,000 mcg IM ONETIME ONE Stop: 03/04/21 09:01 Cyclobenzaprine HCl (Cyclobenzaprine 10 Mg Tab) 10 mg PO Q8H PRN PRN Reason: Muscle Spasm - Painful Last Admin: 03/02/21 15:14 Dose: 10 mg Documented by: Diphenhydramine HCl (Diphenhydramine 50 Mg/Ml Sdv) 50 mg IVPUSH Q4H PRN PRN Reason: ITCHING Hydromorphone HCl (Hydromorphone/Normal Saline 15 Mg/30 Ml Grab [place]er) 0 mg IV ASDIRECTED PRN; Protocol PRN Reason: Pain Last Admin: 03/03/21 05:36 Dose: 15 mg Documented by: Hydroxyzine HCl (Hydroxyzine Hcl 100 Mg/2 Ml Sdv) 100 mg IM Q4H PRN PRN Reason: breakthrough pain Multivitamins/Minerals 10 ml/Thiamine HCl 200 mg/ Zinc 1 ml / Dextrose/Lactated Ringer's 1,013 mls @ 125 mls/hr IV DAILY@1600 [facility] Stop: 03/04/21 00:07 Last Admin: 03/02/21 16:16 Dose: 175 mls/hr Documented by: Cefoxitin Sodium 2 gm/ Sodium (Chloride) 50 mls @ 100 mls/hr IV Q6H [facility] Stop: 03/05/21 00:29 Last Admin: 03/03/21 11:57 Dose: 100 mls/hr Documented by: Dextrose/Lactated Ringer's (Dextrose 5%-Lactated Ringers) 1,000 mls @ 125 mls/hr IV ASDIRECTED [facility] Last Admin: 03/03/21 14:57 Dose: 125 mls/hr Documented by: Lactated Ringer's (Ringers, Lactated) 1,000 mls @ 500 mls/hr IV ASDIRECTED ONE Stop: 03/03/21 15:59 Last Admin: 03/03/21 13:55 Dose: 500 mls/hr Documented by: Labetalol HCl (Labetalol 20 Mg/4 Ml Syringe) 5 mg IVPUSH Q5M PRN PRN Reason: SBP over 160 OR DBP over 95 Metoclopramide HCl (Metoclopramide 10 Mg/2 Ml Sdv) 10 mg IVPUSH Q6H PRN PRN Reason: NAUSEA NOT CONTROL BY ZOFRAN Naloxone HCl (Naloxone 0.4 Mg/Ml Sdv) 0.1 mg IV ASDIRECTED PRN PRN Reason: decreased respiratory rate Ondansetron HCl (Ondansetron 4 Mg/2 Ml Sdv) 4 mg IVPUSH Q4H PRN PRN Reason: Nausea/Vomiting Last Admin: 03/03/21 05:28 Dose: 4 mg Documented by: Pantoprazole Sodium (Pantoprazole 40 Mg Vial) 40 mg IVPUSH Q24H [facility] Last Admin: 03/02/21 16:07 Dose: 40 mg Documented by: Sodium Chloride (Sodium Chloride 0.9% 10 Ml Syringe) 10 ml FLUSH ASDIRECTED PRN PRN Reason: Keep Vein Open Discontinued Medications Acetaminophen (Acetaminophen 500 Mg Tab) 1,000 mg PO Q6H PRN PRN Reason: Headache Last Admin: 03/01/21 22:18 Dose: 1,000 mg Documented by: Bupivacaine HCl (Bupivacaine 0.5% 50 Ml Mdv) Confirm Administered Dose 50 ml .ROUTE .STK-MED ONE Stop: 03/02/21 10:15 Calcium Gluconate (Calcium Gluconate 10% 1 Gm/10 Ml Sdv) 1 gm IVPUSH ONETIME PRN PRN Reason: SX MAGNESIUM TOXICITY Stop: 03/03/21 10:00 Ropivacaine 44 ml/Dexamethasone 8 mg/Epinephrine HCl 0.4 mg/ Sodium Chloride 33.6 ml 0 ml NERVRT ASDIRECTED [facility] Last Admin: 03/02/21 12:43 Dose: 80 syringe Documented by: Dexamethasone (Dexamethasone 4 Mg/Ml Sdv) Confirm Administered Dose 4 mg .ROUTE .STK-MED ONE Stop: 03/02/21 08:33 Ephedrine Sulfate (Ephedrine 50 Mg/Ml Sdv) Confirm Administered Dose 50 mg .ROUTE .STK-MED ONE Stop: 03/02/21 12:58 Fentanyl (Fentanyl 250 Mcg/5 Ml Sdv) Confirm Administered Dose 250 mcg .ROUTE .STK-MED ONE Stop: 03/02/21 08:32 Fentanyl (Fentanyl 100 Mcg/2 Ml Sdv) Confirm Administered Dose 100 mcg .ROUTE .STK-MED ONE Stop: 03/02/21 13:48 Fentanyl (Fentanyl 100 Mcg/2 Ml Sdv) 50 mcg IVPUSH ONETIME ONE Stop: 03/02/21 14:16 Last Admin: 03/02/21 14:19 Dose: 50 mcg Documented by: Furosemide (Furosemide 20 Mg/2 Ml Vial) 20 mg IVPUSH ONETIME ONE Stop: 03/03/21 11:01 Last Admin: 03/03/21 12:16 Dose: Not Given Documented by: Glycopyrrolate (Glycopyrrolate 0.2 Mg/Ml 5 Ml Mdv) Confirm Administered Dose 1 mg .ROUTE .STK-MED ONE Stop: 03/02/21 08:33 Hydromorphone HCl (Hydromorphone 0.5 Mg/0.5 Ml Syringe) 0.5 mg IVPUSH ONETIME ONE Stop: 03/01/21 14:01 Last Admin: 03/01/21 14:18 Dose: 0.5 mg Documented by: Hydromorphone HCl (Hydromorphone 0.5 Mg/0.5 Ml Syringe) 0.5 mg IVPUSH ONETIME ONE Stop: 03/01/21 17:08 Last Admin: 03/01/21 17:36 Dose: 0.5 mg Documented by: Hydromorphone HCl (Hydromorphone 0.5 Mg/0.5 Ml Syringe) 0.5 mg IVPUSH Q2H PRN PRN Reason: Pain Hydroxyzine HCl (Hydroxyzine Hcl 100 Mg/2 Ml Sdv) 100 mg IM ONETIME ONE Stop: 03/02/21 14:08 Last Admin: 03/02/21 14:11 Dose: 100 mg Documented by: Sodium Chloride (Normal Saline) 1,000 mls @ 999 mls/hr IV ASDIRECTED [facility] Last Admin: 03/01/21 14:18 Dose: 999 mls/hr Documented by: Sodium Chloride (Normal Saline) 80 mls @ 3 mls/sec IV ASDIRECTED [facility] Last Admin: 03/01/21 15:39 Dose: 3 mls/sec Documented by: Sodium Chloride (Normal Saline) 1,000 mls @ 300 mls/hr IV ASDIRECTED [facility] Last Admin: 03/01/21 17:36 Dose: 300 mls/hr Documented by: Lactated Ringer's (Ringers, Lactated) 1,000 mls @ 125 mls/hr IV ASDIRECTED [facility] Last Admin: 03/02/21 05:14 Dose: 125 mls/hr Documented by: Cefoxitin Sodium 2 gm/ Sodium (Chloride) 50 mls @ 100 mls/hr IV ONETIME ONE Stop: 03/02/21 12:29 Last Admin: 03/02/21 12:15 Dose: 100 mls/hr Documented by: Magnesium Sulfate (Magnesium Sulfate In Water 2 Gm/50 Ml) 2 gm in 50 mls @ 200 mls/hr IV ASDIRECTED [facility] Last Admin: 03/02/21 12:42 Dose: 200 mls/hr Documented by: Magnesium Sulfate 3 gm/ Sodium (Chloride) 256 mls @ 32 mls/hr IV ONETIME ONE Stop: 03/02/21 19:59 Last Admin: 03/02/21 12:43 Dose: 32 mls/hr Documented by: Ketamine HCl 50 mg/ Sodium (Chloride) 50 mls @ 17.79 mls/hr IV ASDIRECTED [facility] Linezolid (Zyvox) Confirm Administered Dose 300 mls @ as directed .ROUTE .[facility] ONE Stop: 03/02/21 10:16 Lactated Ringer's (Ringers, Lactated) Confirm Administered Dose 1,000 mls @ as directed .ROUTE .[facility] ONE Stop: 03/02/21 12:37 Sodium Chloride (Normal Saline) Confirm Administered Dose 10 mls @ as directed .ROUTE .[facility] ONE Stop: 03/02/21 12:58 Dextrose/Lactated Ringer's (Dextrose 5%-Lactated Ringers) 1,000 mls @ 175 mls/hr IV ASDIRECTED [facility] Last Infusion: 03/03/21 11:00 Dose: 125 mls/hr Documented by: Lactated Ringer's (Ringers, Lactated) 500 mls @ 500 mls/hr IV [facility] ONE Stop: 03/03/21 11:59 Last Admin: 03/03/21 11:05 Dose: 500 mls/hr Documented by: Lactated Ringer's (Ringers, Lactated) 500 mls @ 999 mls/hr IV ONETIME ONE Stop: 03/03/21 12:45 Last Admin: 03/03/21 12:22 Dose: 999 mls/hr Documented by: Iopamidol (Iopamidol 612 Mg/Ml 150 Ml Bottle) 130 ml IV . DIRECTED [facility] Last Admin: 03/01/21 15:39 Dose: 130 ml Documented by: Iopamidol (Iopamidol 612 Mg/Ml 50 Ml Sdv) 50 ml PO ASDIRECTED STA Stop: 03/03/21 04:40 Last Admin: 03/03/21 04:53 Dose: 50 ml Documented by: Ketamine HCl (Ketamine 500 Mg/5 Ml Mdv) 29 mg IV ASDIRECTED [facility] Lidocaine/Epinephrine (Lidocaine 1% With Epinephrine 1:100,000 50 Ml Mdv) Confirm Administered Dose 50 ml .ROUTE .STK-MED ONE Stop: 03/02/21 10:14 Meropenem (Meropenem 500 Mg Sdv) Confirm Administered Dose 500 mg .ROUTE .STK- MED ONE Stop: 03/02/21 10:14 Last Admin: 03/02/21 12:47 Dose: 500 mg Documented by: Naloxone HCl (Naloxone 0.4 Mg/Ml Sdv) 0.4 mg IVPUSH Q2M PRN PRN Reason: Respiratory Distress Neostigmine Methylsulfate (Neostigmine Methylsulfate 1 Mg/Ml 5 Ml Syringe) Confirm Administered Dose 5 mg .ROUTE .STK-MED ONE Stop: 03/02/21 08:33 Ondansetron HCl (Ondansetron 4 Mg/2 Ml Sdv) 4 mg IVPUSH ONETIME ONE Stop: 03/01/21 14:00 Last Admin: 03/01/21 14:18 Dose: 4 mg Documented by: Ondansetron HCl (Ondansetron 4 Mg/2 Ml Sdv) 4 mg IV Q4H PRN PRN Reason: Nausea/Vomiting Ondansetron HCl (Ondansetron 4 Mg/2 Ml Sdv) Confirm Administered Dose 4 mg .ROUTE .STK-MED ONE Stop: 03/02/21 08:33 Propofol (Propofol 200 Mg/20 Ml Sdv) Confirm Administered Dose 200 mg .ROUTE .STK-MED ONE Stop: 03/02/21 08:33 Rocuronium [place] (Rocuronium 50 Mg/5 Ml Vial) Confirm Administered Dose 50 mg .ROUTE .STK-MED ONE Stop: 03/02/21 08:33 Succinylcholine Chloride (Succinylcholine 200 Mg/10 Ml Mdv) Confirm Administered Dose 200 mg .ROUTE .STK-MED ONE Stop: 03/02/21 08:33 - Exam Quality Assessment: Urine Catheter, DVT Prophylaxis Urinary Catheter Total Time: 0Days 19Hours General: Alert, Oriented, Cooperative, Mild Distress Lungs: Clear to Auscultation, Normal Respiratory Effort Cardiovascular: Regular Rate, Regular Rhythm, No Murmurs GI/Abdominal Exam: Soft, No Organomegaly, Tender. No: Distended, Guarding, Rigid, Rebound Extremities: Non-Tender, No Pedal Edema Skin: Warm, Dry, Intact - Patient Data Lab Results Last 24 hrs: Laboratory Results - last 24 hr 03/03/21 03/03/21 Range/Units 04:10 04:10 WBC 14.5 H (4.5-11.0) K/uL RBC 3.09 L (3.30-5.50) M/uL Hgb 9.9 L (12.0-15.0) g/dL Hct 30.0 L (36.0-48.0) % MCV 97 (80-98) fL MCH 32 H (27-31) pg MCHC 33 (32-36) % Plt Count 204 (150-400) K/uL Neut % (Auto) 53.5 (36-66) % Lymph % (Auto) 8.7 L (24-44) % Faulkner % (Auto) 37.6 H (2-6) % Eos % (Auto) 0.1 L (2-4) % Baso % (Auto) 0.1 (0-1) % Sodium 139 L (140-148) mmol/L Potassium 3.8 (3.6-5.2) mmol/L Chloride 102 (100-108) mmol/L Carbon Dioxide 27 (21-32) mmol/L Anion Gap 13.8 (5.0-14.0) mmol/L BUN 12 (7-18) mg/dL Creatinine 0.7 (0.6-1.0) mg/dL Est Cr Clr Drug Dosing 83.46 mL/min Estimated GFR (MDRD) > 60 (>60) Glucose 211 H (74-106) mg/dL Calcium 7.9 L (8.5-10.1) mg/dL Phosphorus 3.2 (2.5-4.9) mg/dL Magnesium 1.9 (1.8-2.4) mg/dL Total Bilirubin 0.6 (0.2-1.0) mg/dL AST 13 L (15-37) U/L ALT 22 (12-78) U/L Alkaline Phosphatase 73 (46-116) U/L NT-Pro-B Natriuret Pep 445 H (5-125) pg/mL Total Protein 5.7 L (6.4-8.2) g/dL Albumin 2.8 L (3.4-5.0) g/dL Globulin 2.9 (2.3-3.5) g/dL Albumin/Globulin Ratio 1.0 L (1.2-2.2) Result Diagrams: 03/03/21 04:10 03/03/21 04:10 Sepsis Event Note - Evaluation Sepsis Screening Result: Sepsis Risk - Focused Exam Vital Signs: Vital Signs Temp Temp Pulse Resp BP Pulse Ox 03/03/21 14:10 95.1 F L 101 H 16 95/57 L 95 03/03/21 13:15 97 03/03/21 12:00 85/52 L 03/03/21 11:13 95.7 F L 110 H 16 86/57 L 93 L 03/03/21 08:06 96.1 F L 102 H 16 92/60 94 L 03/03/21 07:19 94 L - Problem List Review Problem List Initiated/Reviewed/Updated: Yes - My Orders Last 24 Hours: My Active Orders 03/03/21 14:00 Lactated Ringers [Ringers, Lactated] 1,000 ml IV ASDIRECTED - Plan Plan:: ASSESSMENT AND PLAN SMALL BOWEL OBSTRUCTION-status post exploratory laparotomy with small bowel resection yesterday by Dr. Escobar. Postoperative course complicated by hypotension and decreased urine output. Likely secondary to third spacing. Other than modest elevation in white blood cell count no evidence of underlying infection. -Vigorous IV fluid replacement -Consider use of norepinephrine if urine output and blood pressure do not respond to fluid replacement -Closely monitor urine output and blood pressure -Medication for pain and nausea as needed -Postoperative care per Dr. Escobar STATUS POST GASTRIC BYPASS SURGERY MAINTENANCE ISSUES -DVT prophylaxis; SCUDs -GI prophylaxis; not indicated -Oquendo catheter; in place for monitoring of urine output -Nutrition; n.p.o. -Nicotine dependence; not required CODE STATUS-FULL CODE ADMISSION STATUS-patient will be admitted to inpatient status, expect at least a 2 night hospital stay for evaluation and management of problems as outlined above. At the time of this admission I do not reasonably expected evaluation and management of this problem will require more than a 96 hour hospital stay. DISPOSITION-anticipate discharge to home after the hospital stay.
[2021-03-03] MEDS: Pantoprazole 40 MG Vial IVPUSH SCH (16:15)
[2021-03-03] MEDS: MVI, Adult with Vitamin K 10 ML, Thiamine 200 MG, Zinc/Copper/Manganese/Selenium 1 ML i... IV SCH ×4 (17:56)
[2021-03-04] MEDS: Dextrose 5%-Lactated Ringers 1,000 ML IV SCH (02:19)
[2021-03-04] MEDS: cefOXitin 2 GM in Sodium Chloride 0.9% 50 ML IV SCH ×3 (05:10→17:47)
[2021-03-04] MEDS: Acetaminophen 500 MG Tab PO SCH ×3 (05:11→21:14)
[2021-03-04] MEDS ORDERED: Cyanocobalamin (Vitamin B12) 1,000 MCG/ML SDV IM ONE (09:00)
[2021-03-04] MEDS: Celecoxib 200 MG Cap PO SCH ×2 (09:31→21:14)
[2021-03-04] MEDS: Docusate Sodium 100 MG Cap PO SCH ×2 (12:58→21:14)
[2021-03-04] MEDS: Bisacodyl 5 MG Tab PO SCH ×2 (12:58→21:14)
[2021-03-04] MEDS: Magnesium Sulfate/Water 2 GM/50 ML BAG IV SCH ×2 (15:09→22:14)
--- NOTE | 2021-03-04 15:30 | PCM.PN ---
- General Info Date of Service: 03/04/21 Subjective Update: Ms. Stark has unfortunately developed significant anemia, likely related to bleeding from recent surgery. She does feel somewhat more weak and fatigued, currently receiving 1 unit of red blood cells. She is not yet passing gas and has not yet had a bowel movement. Pain control at the present time is adequate. Vital signs are more stable today and urine output has improved. Functional Status: Reports: Ambulating - Review of Systems General: Reports: Weakness, Fatigue. Denies: Fever, Chills Pulmonary: Reports: No Symptoms Cardiovascular: Reports: No Symptoms Gastrointestinal: Reports: Abdominal Pain. Denies: Difficulty Swallowing, Flatus, Hematochezia, Melena, Nausea, Vomiting - Patient Data Vitals - Most Recent: Last Vital Signs Temp 96.1 F L 03/04/21 15:03 Pulse 86 03/04/21 15:03 Resp 16 03/04/21 15:03 BP 110/62 03/04/21 15:03 Pulse Ox 91 L 03/04/21 15:03 Weight - Most Recent: 200 lb 6.4 oz I&O - Last 24 Hours: Intake & Output 03/04/21 03/04/21 03/04/21 06:59 14:59 22:59 Intake Total 2329 758 [id number] Output Total 715 115 Balance 785 -[id number] Lab Results Last 24 Hours: Laboratory Results - last 24 hr 03/03/21 03/04/21 03/04/21 Range/Units 21:35 04:00 04:10 WBC 7.4 (4.5-11.0) K/uL RBC 2.17 L (3.30-5.50) M/uL Hgb 6.6 L* D (12.0-15.0) g/dL Hct 21.9 L (36.0-48.0) % MCV 101 H (80-98) fL MCH 30 (27-31) pg MCHC 30 L (32-36) % Plt Count 123 L (150-400) K/uL Sodium (140-148) mmol/L Potassium (3.6-5.2) mmol/L Chloride (100-108) mmol/L Carbon Dioxide (21-32) mmol/L Anion Gap (5.0-14.0) mmol/L BUN (7-18) mg/dL Creatinine (0.6-1.0) mg/dL Est Cr Clr Drug Dosing mL/min Estimated GFR (MDRD) (>60) Glucose (74-106) mg/dL Calcium (8.5-10.1) mg/dL Phosphorus (2.5-4.9) mg/dL Magnesium (1.8-2.4) mg/dL Total Bilirubin (0.2-1.0) mg/dL AST (15-37) U/L ALT (12-78) U/L Alkaline Phosphatase (46-116) U/L NT-Pro-B Natriuret Pep (5-125) pg/mL Total Protein (6.4-8.2) g/dL Albumin (3.4-5.0) g/dL Globulin (2.3-3.5) g/dL Albumin/Globulin Ratio (1.2-2.2) Urine Color Yellow (YELLOW) Urine Appearance Cloudy A (CLEAR) Urine pH 6.0 (5.0-8.0) Ur Specific [place] >= 1.030 (1.008-1.030) Urine Protein Negative (NEGATIVE) mg/dL Urine Glucose (UA) Negative (NEGATIVE) mg/dL Urine Ketones Negative (NEGATIVE) mg/dL Urine Occult Blood Trace-intact H (NEGATIVE) Urine Nitrite Negative (NEGATIVE) Urine Bilirubin Negative (NEGATIVE) Urine Urobilinogen 0.2 (0.2-1.0) EU/dL Ur Leukocyte Esterase Negative (NEGATIVE) Urine RBC 0-5 (0-5) Urine WBC 0-5 (0-5) Ur Epithelial Cells Rare Amorphous Sediment Not seen Urine Bacteria Few Urine Mucus Moderate Blood Type B POSITIVE Gel Antibody Screen Negative Crossmatch See Detail 03/04/21 Range/Units 04:10 WBC (4.5-11.0) K/uL RBC (3.30-5.50) M/uL Hgb (12.0-15.0) g/dL Hct (36.0-48.0) % MCV (80-98) fL MCH (27-31) pg MCHC (32-36) % Plt Count (150-400) K/uL Sodium 141 (140-148) mmol/L Potassium 4.1 (3.6-5.2) mmol/L Chloride 105 (100-108) mmol/L Carbon Dioxide 31 (21-32) mmol/L Anion Gap 5.2 (5.0-14.0) mmol/L BUN 14 (7-18) mg/dL Creatinine 0.7 (0.6-1.0) mg/dL Est Cr Clr Drug Dosing 83.46 mL/min Estimated GFR (MDRD) > 60 (>60) Glucose 92 (74-106) mg/dL Calcium 7.8 L (8.5-10.1) mg/dL Phosphorus 3.0 (2.5-4.9) mg/dL Magnesium 1.6 L (1.8-2.4) mg/dL Total Bilirubin 0.4 (0.2-1.0) mg/dL AST 10 L (15-37) U/L ALT 18 (12-78) U/L Alkaline Phosphatase 59 (46-116) U/L NT-Pro-B Natriuret Pep 123 (5-125) pg/mL Total Protein 4.7 L (6.4-8.2) g/dL Albumin 2.1 L (3.4-5.0) g/dL Globulin 2.6 (2.3-3.5) g/dL Albumin/Globulin Ratio 0.8 L (1.2-2.2) Urine Color (YELLOW) Urine Appearance (CLEAR) Urine pH (5.0-8.0) Ur Specific [place] (1.008-1.030) Urine Protein (NEGATIVE) mg/dL Urine Glucose (UA) (NEGATIVE) mg/dL Urine Ketones (NEGATIVE) mg/dL Urine Occult Blood (NEGATIVE) Urine Nitrite (NEGATIVE) Urine Bilirubin (NEGATIVE) Urine Urobilinogen (0.2-1.0) EU/dL Ur Leukocyte Esterase (NEGATIVE) Urine RBC (0-5) Urine WBC (0-5) Ur Epithelial Cells Amorphous Sediment Urine Bacteria Urine Mucus Blood Type Gel Antibody Screen Crossmatch Med Orders - Current: Current Medications Acetaminophen (Acetaminophen 500 Mg Tab) 1,000 mg PO Q8H [facility] Last Admin: 03/04/21 13:11 Dose: 1,000 mg Documented by: Acetaminophen (Acetaminophen 500 Mg Tab) 500 mg PO Q8H PRN PRN Reason: MILD PAIN Bisacodyl (Bisacodyl 5 Mg Tab) 10 mg PO BID [facility] Last Admin: 03/04/21 12:58 Dose: 10 mg Documented by: Bupropion HCl (Bupropion 75 Mg Tab) 75 mg PO TID [facility] Last Admin: 03/04/21 13:11 Dose: 75 mg Documented by: Celecoxib (Celecoxib 200 Mg Cap) 200 mg PO BID [facility] Last Admin: 03/04/21 09:31 Dose: 200 mg Documented by: Cyclobenzaprine HCl (Cyclobenzaprine 10 Mg Tab) 10 mg PO Q8H PRN PRN Reason: Muscle Spasm - Painful Last Admin: 03/02/21 15:14 Dose: 10 mg Documented by: Diphenhydramine HCl (Diphenhydramine 50 Mg/Ml Sdv) 50 mg IVPUSH Q4H PRN PRN Reason: ITCHING Docusate Sodium (Docusate Sodium 100 Mg Cap) 100 mg PO BID [facility] Last Admin: 03/04/21 12:58 Dose: 100 mg Documented by: Hydromorphone HCl (Hydromorphone/Normal Saline 15 Mg/30 Ml Ballistic Technician) 0 mg IV ASDIRECTED PRN; Protocol PRN Reason: Pain Last Admin: 03/03/21 05:36 Dose: 15 mg Documented by: Hydroxyzine HCl (Hydroxyzine Hcl 100 Mg/2 Ml Sdv) 100 mg IM Q4H PRN PRN Reason: breakthrough pain Cefoxitin Sodium 2 gm/ Sodium (Chloride) 50 mls @ 100 mls/hr IV Q6H [facility] Stop: 03/05/21 00:29 Last Admin: 03/04/21 12:57 Dose: 100 mls/hr Documented by: Dextrose/Lactated Ringer's (Dextrose 5%-Lactated Ringers) 1,000 mls @ 125 mls/hr IV ASDIRECTED [facility] Last Admin: 03/04/21 02:19 Dose: 125 mls/hr Documented by: Magnesium Sulfate (Magnesium Sulfate In Water 2 Gm/50 Ml) 2 gm in 50 mls @ 25 mls/hr IV Q6H [facility] Stop: 03/06/21 09:59 Last Admin: 03/04/21 15:09 Dose: 25 mls/hr Documented by: Labetalol HCl (Labetalol 20 Mg/4 Ml Syringe) 5 mg IVPUSH Q5M PRN PRN Reason: SBP over 160 OR DBP over 95 Metoclopramide HCl (Metoclopramide 10 Mg/2 Ml Sdv) 10 mg IVPUSH Q6H PRN PRN Reason: NAUSEA NOT CONTROL BY ZOFRAN Naloxone HCl (Naloxone 0.4 Mg/Ml Sdv) 0.1 mg IV ASDIRECTED PRN PRN Reason: decreased respiratory rate Ondansetron HCl (Ondansetron 4 Mg/2 Ml Sdv) 4 mg IVPUSH Q4H PRN PRN Reason: Nausea/Vomiting Last Admin: 03/03/21 05:28 Dose: 4 mg Documented by: Pantoprazole Sodium (Pantoprazole 40 Mg Vial) 40 mg IVPUSH Q24H [facility] Last Admin: 03/03/21 16:15 Dose: 40 mg Documented by: Sodium Chloride (Sodium Chloride 0.9% 10 Ml Syringe) 10 ml FLUSH ASDIRECTED PRN PRN Reason: Keep Vein Open Discontinued Medications Acetaminophen (Acetaminophen 500 Mg Tab) 1,000 mg PO Q6H PRN PRN Reason: Headache Last Admin: 03/01/21 22:18 Dose: 1,000 mg Documented by: Bupivacaine HCl (Bupivacaine 0.5% 50 Ml Mdv) Confirm Administered Dose 50 ml .ROUTE .STK-MED ONE Stop: 03/02/21 10:15 Calcium Gluconate (Calcium Gluconate 10% 1 Gm/10 Ml Sdv) 1 gm IVPUSH ONETIME PRN PRN Reason: SX MAGNESIUM TOXICITY Stop: 03/03/21 10:00 Ropivacaine 44 ml/Dexamethasone 8 mg/Epinephrine HCl 0.4 mg/ Sodium Chloride 33.6 ml 0 ml NERVRT ASDIRECTED [facility] Last Admin: 03/02/21 12:43 Dose: 80 syringe Documented by: Cyanocobalamin (Cyanocobalamin (Vitamin B12) 1,000 Mcg/Ml Sdv) 1,000 mcg IM ONETIME ONE Stop: 03/04/21 09:01 Last Admin: 03/04/21 12:57 Dose: 1,000 mcg Documented by: Dexamethasone (Dexamethasone 4 Mg/Ml Sdv) Confirm Administered Dose 4 mg .ROUTE .STK-MED ONE Stop: 03/02/21 08:33 Ephedrine Sulfate (Ephedrine 50 Mg/Ml Sdv) Confirm Administered Dose 50 mg .ROUTE .STK-MED ONE Stop: 03/02/21 12:58 Fentanyl (Fentanyl 250 Mcg/5 Ml Sdv) Confirm Administered Dose 250 mcg .ROUTE .STK-MED ONE Stop: 03/02/21 08:32 Fentanyl (Fentanyl 100 Mcg/2 Ml Sdv) Confirm Administered Dose 100 mcg .ROUTE .STK-MED ONE Stop: 03/02/21 13:48 Fentanyl (Fentanyl 100 Mcg/2 Ml Sdv) 50 mcg IVPUSH ONETIME ONE Stop: 03/02/21 14:16 Last Admin: 03/02/21 14:19 Dose: 50 mcg Documented by: Furosemide (Furosemide 20 Mg/2 Ml Vial) 20 mg IVPUSH ONETIME ONE Stop: 03/03/21 11:01 Last Admin: 03/03/21 12:16 Dose: Not Given Documented by: Glycopyrrolate (Glycopyrrolate 0.2 Mg/Ml 5 Ml Mdv) Confirm Administered Dose 1 mg .ROUTE .STK-MED ONE Stop: 03/02/21 08:33 Hydromorphone HCl (Hydromorphone 0.5 Mg/0.5 Ml Syringe) 0.5 mg IVPUSH ONETIME ONE Stop: 03/01/21 14:01 Last Admin: 03/01/21 14:18 Dose: 0.5 mg Documented by: Hydromorphone HCl (Hydromorphone 0.5 Mg/0.5 Ml Syringe) 0.5 mg IVPUSH ONETIME ONE Stop: 03/01/21 17:08 Last Admin: 03/01/21 17:36 Dose: 0.5 mg Documented by: Hydromorphone HCl (Hydromorphone 0.5 Mg/0.5 Ml Syringe) 0.5 mg IVPUSH Q2H PRN PRN Reason: Pain Hydroxyzine HCl (Hydroxyzine Hcl 100 Mg/2 Ml Sdv) 100 mg IM ONETIME ONE Stop: 03/02/21 14:08 Last Admin: 03/02/21 14:11 Dose: 100 mg Documented by: Sodium Chloride (Normal Saline) 1,000 mls @ 999 mls/hr IV ASDIRECTED [facility] Last Admin: 03/01/21 14:18 Dose: 999 mls/hr Documented by: Sodium Chloride (Normal Saline) 80 mls @ 3 mls/sec IV ASDIRECTED [facility] Last Admin: 03/01/21 15:39 Dose: 3 mls/sec Documented by: Sodium Chloride (Normal Saline) 1,000 mls @ 300 mls/hr IV ASDIRECTED [facility] Last Admin: 03/01/21 17:36 Dose: 300 mls/hr Documented by: Lactated Ringer's (Ringers, Lactated) 1,000 mls @ 125 mls/hr IV ASDIRECTED [facility] Last Admin: 03/02/21 05:14 Dose: 125 mls/hr Documented by: Cefoxitin Sodium 2 gm/ Sodium (Chloride) 50 mls @ 100 mls/hr IV ONETIME ONE Stop: 03/02/21 12:29 Last Admin: 03/02/21 12:15 Dose: 100 mls/hr Documented by: Magnesium Sulfate (Magnesium Sulfate In Water 2 Gm/50 Ml) 2 gm in 50 mls @ 200 mls/hr IV ASDIRECTED [facility] Last Admin: 03/02/21 12:42 Dose: 200 mls/hr Documented by: Magnesium Sulfate 3 gm/ Sodium (Chloride) 256 mls @ 32 mls/hr IV ONETIME ONE Stop: 03/02/21 19:59 Last Admin: 03/02/21 12:43 Dose: 32 mls/hr Documented by: Ketamine HCl 50 mg/ Sodium (Chloride) 50 mls @ 17.79 mls/hr IV ASDIRECTED [facility] Linezolid (Zyvox) Confirm Administered Dose 300 mls @ as directed .ROUTE .STK- MED ONE Stop: 03/02/21 10:16 Lactated Ringer's (Ringers, Lactated) Confirm Administered Dose 1,000 mls @ as directed .ROUTE .STK-MED ONE Stop: 03/02/21 12:37 Sodium Chloride (Normal Saline) Confirm Administered Dose 10 mls @ as directed .ROUTE .K-MED ONE Stop: 03/02/21 12:58 Dextrose/Lactated Ringer's (Dextrose 5%-Lactated Ringers) 1,000 mls @ 175 mls/hr IV ASDIRECTED [facility] Last Infusion: 03/03/21 11:00 Dose: 125 mls/hr Documented by: Multivitamins/Minerals 10 ml/Thiamine HCl 200 mg/ Zinc 1 ml / Dextrose/Lactated Ringer's 1,013 mls @ 125 mls/hr IV DAILY@1600 [facility] Stop: 03/04/21 00:07 Last Admin: 03/03/21 17:56 Dose: 125 mls/hr Documented by: Lactated Ringer's (Ringers, Lactated) 500 mls @ 500 mls/hr IV BOLUS ONE Stop: 03/03/21 11:59 Last Admin: 03/03/21 11:05 Dose: 500 mls/hr Documented by: Lactated Ringer's (Ringers, Lactated) 500 mls @ 999 mls/hr IV ONETIME ONE Stop: 03/03/21 12:45 Last Admin: 03/03/21 12:22 Dose: 999 mls/hr Documented by: Lactated Ringer's (Ringers, Lactated) 1,000 mls @ 500 mls/hr IV ASDIRECTED ONE Stop: 03/03/21 15:59 Last Admin: 03/03/21 13:55 Dose: 500 mls/hr Documented by: Iopamidol (Iopamidol 612 Mg/Ml 150 Ml Bottle) 130 ml IV . DIRECTED [facility] Last Admin: 03/01/21 15:39 Dose: 130 ml Documented by: Iopamidol (Iopamidol 612 Mg/Ml 50 Ml Sdv) 50 ml PO ASDIRECTED [facility] Stop: 03/03/21 04:40 Last Admin: 03/03/21 04:53 Dose: 50 ml Documented by: Ketamine HCl (Ketamine 500 Mg/5 Ml Mdv) 29 mg IV ASDIRECTED [facility] Lidocaine/Epinephrine (Lidocaine 1% With Epinephrine 1:100,000 50 Ml Mdv) Confirm Administered Dose 50 ml .ROUTE .STK-MED ONE Stop: 03/02/21 10:14 Meropenem (Meropenem 500 Mg Sdv) Confirm Administered Dose 500 mg .ROUTE .STK- MED ONE Stop: 03/02/21 10:14 Last Admin: 03/02/21 12:47 Dose: 500 mg Documented by: Naloxone HCl (Naloxone 0.4 Mg/Ml Sdv) 0.4 mg IVPUSH Q2M PRN PRN Reason: Respiratory Distress Neostigmine Methylsulfate (Neostigmine Methylsulfate 1 Mg/Ml 5 Ml Syringe) Confirm Administered Dose 5 mg .ROUTE .STK-MED ONE Stop: 03/02/21 08:33 Ondansetron HCl (Ondansetron 4 Mg/2 Ml Sdv) 4 mg IVPUSH ONETIME ONE Stop: 03/01/21 14:00 Last Admin: 03/01/21 14:18 Dose: 4 mg Documented by: Ondansetron HCl (Ondansetron 4 Mg/2 Ml Sdv) 4 mg IV Q4H PRN PRN Reason: Nausea/Vomiting Ondansetron HCl (Ondansetron 4 Mg/2 Ml Sdv) Confirm Administered Dose 4 mg .ROUTE .STK-MED ONE Stop: 03/02/21 08:33 Propofol (Propofol 200 Mg/20 Ml Sdv) Confirm Administered Dose 200 mg .ROUTE .STK-MED ONE Stop: 03/02/21 08:33 Rocuronium [place] (Rocuronium 50 Mg/5 Ml Vial) Confirm Administered Dose 50 mg .ROUTE .STK-MED ONE Stop: 03/02/21 08:33 Succinylcholine Chloride (Succinylcholine 200 Mg/10 Ml Mdv) Confirm Administered Dose 200 mg .ROUTE .STNeoDiagnostix-MED ONE Stop: 03/02/21 08:33 - Exam Quality Assessment: DVT Prophylaxis Urinary Catheter Total Time: 1Days 21Hours General: Alert, Oriented, Cooperative, Mild Distress Lungs: Clear to Auscultation, Normal Respiratory Effort Cardiovascular: Regular Rate, Regular Rhythm, No Murmurs GI/Abdominal Exam: Soft, No Organomegaly, Tender. No: Distended, Guarding, Rigid, Rebound Extremities: Non-Tender, No Pedal Edema - Patient Data Lab Results Last 24 hrs: Laboratory Results - last 24 hr 03/03/21 03/04/21 03/04/21 Range/Units 21:35 04:00 04:10 WBC 7.4 (4.5-11.0) K/uL RBC 2.17 L (3.30-5.50) M/uL Hgb 6.6 L* D (12.0-15.0) g/dL Hct 21.9 L (36.0-48.0) % MCV 101 H (80-98) fL MCH 30 (27-31) pg MCHC 30 L (32-36) % Plt Count 123 L (150-400) K/uL Sodium (140-148) mmol/L Potassium (3.6-5.2) mmol/L Chloride (100-108) mmol/L Carbon Dioxide (21-32) mmol/L Anion Gap (5.0-14.0) mmol/L BUN (7-18) mg/dL Creatinine (0.6-1.0) mg/dL Est Cr Clr Drug Dosing mL/min Estimated GFR (MDRD) (>60) Glucose (74-106) mg/dL Calcium (8.5-10.1) mg/dL Phosphorus (2.5-4.9) mg/dL Magnesium (1.8-2.4) mg/dL Total Bilirubin (0.2-1.0) mg/dL AST (15-37) U/L ALT (12-78) U/L Alkaline Phosphatase (46-116) U/L NT-Pro-B Natriuret Pep (5-125) pg/mL Total Protein (6.4-8.2) g/dL Albumin (3.4-5.0) g/dL Globulin (2.3-3.5) g/dL Albumin/Globulin Ratio (1.2-2.2) Urine Color Yellow (YELLOW) Urine Appearance Cloudy A (CLEAR) Urine pH 6.0 (5.0-8.0) Ur Specific [place] >= 1.030 (1.008-1.030) Urine Protein Negative (NEGATIVE) mg/dL Urine Glucose (UA) Negative (NEGATIVE) mg/dL Urine Ketones Negative (NEGATIVE) mg/dL Urine Occult Blood Trace-intact H (NEGATIVE) Urine Nitrite Negative (NEGATIVE) Urine Bilirubin Negative (NEGATIVE) Urine Urobilinogen 0.2 (0.2-1.0) EU/dL Ur Leukocyte Esterase Negative (NEGATIVE) Urine RBC 0-5 (0-5) Urine WBC 0-5 (0-5) Ur Epithelial Cells Rare Amorphous Sediment Not seen Urine Bacteria Few Urine Mucus Moderate Blood Type B POSITIVE Gel Antibody Screen Negative Crossmatch See Detail 03/04/21 Range/Units 04:10 WBC (4.5-11.0) K/uL RBC (3.30-5.50) M/uL Hgb (12.0-15.0) g/dL Hct (36.0-48.0) % MCV (80-98) fL MCH (27-31) pg MCHC (32-36) % Plt Count (150-400) K/uL Sodium 141 (140-148) mmol/L Potassium 4.1 (3.6-5.2) mmol/L Chloride 105 (100-108) mmol/L Carbon Dioxide 31 (21-32) mmol/L Anion Gap 5.2 (5.0-14.0) mmol/L BUN 14 (7-18) mg/dL Creatinine 0.7 (0.6-1.0) mg/dL Est Cr Clr Drug Dosing 83.46 mL/min Estimated GFR (MDRD) > 60 (>60) Glucose 92 (74-106) mg/dL Calcium 7.8 L (8.5-10.1) mg/dL Phosphorus 3.0 (2.5-4.9) mg/dL Magnesium 1.6 L (1.8-2.4) mg/dL Total Bilirubin 0.4 (0.2-1.0) mg/dL AST 10 L (15-37) U/L ALT 18 (12-78) U/L Alkaline Phosphatase 59 (46-116) U/L NT-Pro-B Natriuret Pep 123 (5-125) pg/mL Total Protein 4.7 L (6.4-8.2) g/dL Albumin 2.1 L (3.4-5.0) g/dL Globulin 2.6 (2.3-3.5) g/dL Albumin/Globulin Ratio 0.8 L (1.2-2.2) Urine Color (YELLOW) Urine Appearance (CLEAR) Urine pH (5.0-8.0) Ur Specific [place] (1.008-1.030) Urine Protein (NEGATIVE) mg/dL Urine Glucose (UA) (NEGATIVE) mg/dL Urine Ketones (NEGATIVE) mg/dL Urine Occult Blood (NEGATIVE) Urine Nitrite (NEGATIVE) Urine Bilirubin (NEGATIVE) Urine Urobilinogen (0.2-1.0) EU/dL Ur Leukocyte Esterase (NEGATIVE) Urine RBC (0-5) Urine WBC (0-5) Ur Epithelial Cells Amorphous Sediment Urine Bacteria Urine Mucus Blood Type Gel Antibody Screen Crossmatch Result Diagrams: 03/04/21 04:10 03/04/21 04:10 Sepsis Event Note - Evaluation Sepsis Screening Result: Sepsis Risk - Focused Exam Vital Signs: Vital Signs Temp Temp Pulse Resp BP Pulse Ox 03/04/21 15:03 96.1 F L 86 16 110/62 91 L 03/04/21 13:00 95.2 F L 95 16 108/57 L 92 L 03/04/21 12:50 95.2 F L 91 16 107/68 03/04/21 12:35 96.8 F L 95 16 108/57 L 03/04/21 12:20 96.8 F L 96 16 107/63 03/04/21 12:09 92 L 03/04/21 12:05 96.1 F L 99 16 111/64 92 L 03/04/21 11:42 95.8 F L 94 16 106/61 03/04/21 11:10 95.9 F L 95 18 102/76 03/04/21 10:40 95.9 F L 94 16 114/71 03/04/21 10:10 95.2 F L 101 H 18 122/64 03/04/21 09:55 95.1 F L 94 18 117/52 L 03/04/21 09:40 95.2 F L 89 16 107/58 L 03/04/21 09:25 95.2 F L 89 16 101/62 03/04/21 09:00 95.2 F L 89 16 101/62 92 L 03/04/21 07:00 98 - Problem List Review Problem List Initiated/Reviewed/Updated: Yes - Plan Plan:: ASSESSMENT AND PLAN SMALL BOWEL OBSTRUCTION-status post exploratory laparotomy with small bowel resection 03/[address] Escobar. Blood pressure has stabilized since yesterday and urine output has improved. She has developed significant anemia likely related to bleeding with recent surgery -Transfuse 1 unit of red blood cells as ordered per Dr. Escobar -Follow-up hemoglobin this afternoon and in a.m. -Closely monitor urine output and blood pressure -Medication for pain and nausea as needed -Postoperative care per Dr. Escobar STATUS POST GASTRIC BYPASS SURGERY MAINTENANCE ISSUES -DVT prophylaxis; SCUDs -GI prophylaxis; not indicated -Oquendo catheter; in place for monitoring of urine output -Nutrition; n.p.o. -Nicotine dependence; not required CODE STATUS-FULL CODE ADMISSION STATUS-patient will be admitted to inpatient status, expect at least a 2 night hospital stay for evaluation and management of problems as outlined above. At the time of this admission I do not reasonably expected evaluation and management of this problem will require more than a 96 hour hospital stay. DISPOSITION-anticipate discharge to home after the hospital stay.
[2021-03-04] MEDS: Pantoprazole 40 MG Vial IVPUSH SCH (16:14)
[2021-03-04] MEDS: Pantoprazole 40 MG Tab.CR PO SCH (16:31)
[2021-03-04] MEDS: oxyCODONE 5 MG Tab PO PRN (17:45)
[2021-03-05] MEDS: cefOXitin 2 GM in Sodium Chloride 0.9% 50 ML IV SCH (00:18)
[2021-03-05] MEDS: Magnesium Sulfate/Water 2 GM/50 ML BAG IV SCH ×4 (02:54→19:54)
[2021-03-05] MEDS: oxyCODONE 5 MG Tab PO PRN ×3 (03:04→22:29)
[2021-03-05] MEDS: Dextrose 5%-Lactated Ringers 1,000 ML IV SCH ×2 (03:41→18:19)
[2021-03-05] MEDS: Acetaminophen 500 MG Tab PO SCH ×3 (05:02→21:20)
[2021-03-05] MEDS: Pantoprazole 40 MG Tab.CR PO SCH (07:52)
[2021-03-05] MEDS: Celecoxib 200 MG Cap PO SCH ×2 (09:23→21:20)
[2021-03-05] MEDS: Docusate Sodium 100 MG Cap PO SCH ×2 (09:23→21:20)
[2021-03-05] MEDS: Bisacodyl 5 MG Tab PO SCH ×2 (09:24→21:20)
[2021-03-06] MEDS: Magnesium Sulfate/Water 2 GM/50 ML BAG IV SCH ×2 (01:09→08:29)
[2021-03-06] MEDS: Acetaminophen 500 MG Tab PO SCH (05:53)
[2021-03-06 07:01] VITALS: BP 128/69; PULSE 76
[2021-03-06] MEDS: Bisacodyl 5 MG Tab PO SCH (08:30)
[2021-03-06] MEDS: Celecoxib 200 MG Cap PO SCH (08:30)
[2021-03-06] MEDS: Docusate Sodium 100 MG Cap PO SCH (08:31)
[2021-03-06] MEDS: Pantoprazole 40 MG Tab.CR PO SCH (08:31)
--- NOTE | 2021-03-06 15:49 | PN ---
DATE OF SERVICE: 03/05/2021 The patient has been afebrile with stable vital signs. Hemoglobin is 9.2 and clinically appears to be stable. We will go up to step-3 diet today and recheck some labs tomorrow. If things look stable, she will likely be able to be discharged home. Parrish Escobar MD /[id number]
--- NOTE | 2021-03-06 17:29 | PN ---
DATE OF SERVICE: 03/04/2021 The patient is currently a little bit low in terms of blood pressure. Her hemoglobin did drop to 6.6 from 9.8 yesterday. Clinically, I do not think she is actively bleeding at this point. We will give her 2 units of packed RBCs and recheck hemoglobin after that. Magnesium is somewhat low as well. We will leave the Oquendo catheter in for today to monitor urine output. As noted, her creatinine has been stable at 0.7 during the hospitalization. Otherwise, we will continue the current diet and pain medications. Most likely, switching her over to oral tomorrow. Parrish Escobar MD /[id number]
--- NOTE | 2021-03-06 19:23 | DISCH ---
ADMITTING DIAGNOSES: 1. Dehydration. 2. Small bowel obstruction. 3. Status post Macy-en-Y gastric bypass surgery. 4. Gastroesophageal reflux disease. 5. Hypertension. 6. Celiac disease. DISCHARGE DIAGNOSES: 1. Exploratory laparotomy with lysis of adhesion. 2. Small-bowel resection. 3. Enterotomy tube decompression of small bowel. 4. Recurrent bowel strictureplasty. 5. Repair of incisional hernia. 6. Placement of Interceed mesh. POSTOPERATIVE DIAGNOSES: 1. Small bowel secondary to adhesion proximal to the jejunojejunostomy. 2. 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 3. Non incarcerated incisional hernia. 4. Nonobstructed shortened stricture proximal small bowel. 5. Date of procedure: 03/02/2021. Surgeon: Parrish Escobar MD. HISTORY: Melisa Stark is a 55-year-old female who presented to the emergency room with severe abdominal pain. After preoperative evaluation and discussion of possible risks and possible complications, she wished to proceed with surgical procedure. Melisa had her surgical procedure on 03/02/2021. She had no operative complications. On postoperative day #1, her upper GI was normal. She was started on a step 2 gastric bypass diet. She continued with the NURSING ADMIN. On 03/03/2021, she did have extreme hypotension, decreased urine output. She had a hospitalist consult and was given IV boluses along with 1 dose of Lasix. Labs the next morning showed a hemoglobin of 6.6. She received 3 units of packed red blood cells and she felt much better. Pain was controlled. Vital signs stable. She did stabilize. She did have a bowel movement on 03/05/2021. Oral intake was adequate, pain controlled. She was able to be discharged to home on 03/06/2021. PHYSICAL EXAMINATION: GENERAL: Melisa Stark is a pleasant 55-year-old female. VITAL SIGNS: Height is 5 feet 6 inches, weight is 209 pounds. TPR 95.5, 76, 18, blood pressure 128/69. HEENT: Negative. NECK: Supple. HEART: Regular rate and rhythm. LUNGS: Clear. ABDOMEN: Aquacel dressing is on. Abdominal binder is on. EXTREMITIES: Without peripheral edema. DISPOSITION: Discharged to home. CONDITION: Stable and improving. FOLLOWUP: Appointment with Ana Pearson PA-C, on 03/13/2021 at 10 a.m. She is to have a CBC before that appointment. HOME MEDICATIONS: 1. Celebrex 200 mg p.o. b.i.d. #28. 2. Oxycodone 5 mg p.o. q.4 hours p.r.n. pain #18. 3. Tylenol 1000 mg q.6 to 8 hours p.r.n. pain. 4. Can restart all usual medications. DIET: Usual diet as tolerated. Drink 8 to 10 glasses of water a day. ACTIVITY: No lifting more than 10 pounds for 6 weeks. Driving: Do not drive while on narcotic medication. DISCHARGE INSTRUCTIONS: May shower. Keep operative site clean and dry. Take off Aquacel dressing on 03/08/2021. Notify provider if any fever, increased pain, swelling, redness, drainage, nausea, vomiting. SPECIAL INSTRUCTION: Use incentive spirometer 10 times every hour while awake for 1 week. /[id number]
--- NOTE | 2021-03-09 13:06 | OR ---
DATE OF PROCEDURE: 03/02/2021 SURGEON: Parrish Escobar MD PREOPERATIVE DIAGNOSIS: Small bowel obstruction. POSTOPERATIVE DIAGNOSES: 1. Small bowel obstruction secondary to adhesions and Macy limb proximal to the jejunojejunostomy. 2. 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 3. Markedly dilated proximal small bowel. 4. Incarcerated incisional hernia. PROCEDURES PERFORMED: Exploratory laparotomy with lysis of adhesions and: 1. Small bowel resection (97013). 2. Enterotomy for tube decompression of dilated proximal small bowel (48561). 3. Small bowel stricturoplasty (01146). 4. Repair of incisional hernia (98276). 5. Placement of Interceed mesh to limit recurrent adhesion formation between pelvic and abdominal wall and underlying viscera (58698). ANESTHESIA: General. TIP BANDER: Ana Pearson PA-C INDICATIONS FOR PROCEDURE: The patient was admitted overnight with a picture of small bowel obstruction. This appears to be potentially closed loop obstruction, and given this and the patient's clinical appearance of being extremely uncomfortable, we will plan to proceed with open laparotomy and release of small bowel obstruction with small bowel resection as indicated. Potential risks of the procedure including bleeding, infection, leaks from various GI tract closures, and possible recurrence or persistence of the bowel obstruction postoperatively were all gone over, and the patient wishes to proceed. DETAILS OF PROCEDURE: The patient was taken to the operating room, and after general endotracheal anesthesia was induced, a [place] catheter was inserted and the abdomen prepped and draped. The previous upper midline incision was then reused and carried down through the skin and subcutaneous tissue. At the lower end of the previous incision, the patient was noted to have a non-incarcerated incisional hernia. The hernia sac was then excised and sent as a separate specimen. The patient was noted to have extensive dense adhesions between the small bowel and underlying abdominal wall. At one point, within the mid limb, there was a point of adhesion along which the bowel had rotated, creating a closed loop obstruction. This was taken down as there was some obviously ischemic area within that segment of small bowel. This was not perforated, but clearly needed to be resected. Somewhat more distal to this, there was a separate area that was strictured after takedown of the adhesions as well. The proximal small bowel was markedly dilated proximal to the point of the closed loop obstruction. At this point, the area of the bowel which was more or less in limb was divided proximally and distally. The proximal margin was then opened and a [place] sump tube placed into the bowel, decompressing this of a large amount of fluid and air to make the subsequent anastomosis safer. The anastomosis between the 2 ends of the small bowel was then accomplished with internal firing of the 60 mm followed by 30 mm SHEKHAR stapler. Common openings were closed transversely with the SHEKHAR alba as well and angles anastomosed and mesenteric defect approximated with some 3-0 Vicryl stitch. The area of the small bowel stricture which was somewhat more distal to this, but within the common limb beyond the jejunojejunostomy. The stricture was treated by means of an enterotomy on the point of the stricture, flipping the bowel on itself and then firing the internal firing of the 60 mm stapler followed by the 30 mm stapler with the common opening again being closed transversely with SHEKHAR alba as well. In this case, there was no mesenteric defect and the angles anastomosed and reinforced with some 3-0 Vicryl stitch. At this point, no further problems were noted. The abdomen was irrigated with antibiotic- containing saline solution. Interceed mesh was placed underneath the incision, and from there, down toward the pelvis to prevent recurrent adhesion formation, and the midline fascia was then approximated with #2 Vicryl stitch which included repair of the area of the incisional hernia and the subcutaneous tissue approximated with 3-0 and 4-0 Vicryl stitch and skin with alba. Prior to closure, bilateral transversus abdominis plane blocks were then placed and the incision itself was anesthetized with 1% lidocaine mixed with Marcaine and the patient taken to the recovery room in satisfactory condition. There were no evident complications. Physician social science research assistant, Ana Pearson, played an essential role in assisting in this case, helping to position the patient, retract structures as needed, as well as suturing and cutting sutures when indicated. Her presence improved the patient's safety and decreased operative time. Parrish Escobar MD /[id number]
== END 2021-03-06 09:37 | disposition home or self-care (01) | DRG 329 ==
LOC: JP.ED 11:53 → JP.MS 17:50
PROVIDERS: ADMIT Hospitalist; ATTEND Surgery
PROC: 0DB80ZZ Excision of Small Intestine, Open Approach (ICD-10-PCS; 2021-03-02)
PROC: 0D980ZZ Drainage of Small Intestine, Open Approach (ICD-10-PCS; 2021-03-02)
PROC: 0DQ80ZZ Repair Small Intestine, Open Approach (ICD-10-PCS; 2021-03-02)
PROC: 0WQF0ZZ Repair Abdominal Wall, Open Approach (ICD-10-PCS; 2021-03-02)
PROC: 0DN80ZZ Release Small Intestine, Open Approach (ICD-10-PCS; 2021-03-02)
PROC: 3E0M05Z Introduction of Adhesion Barrier into Peritoneal Cavity, Open Approach (ICD-10-PCS; 2021-03-02)
PROC: 30233N1 Transfusion of Nonautologous Red Blood Cells into Peripheral Vein, Percutaneous Approach (ICD-10-PCS; principal; 2021-03-04)
DX: K56.51 Intestinal adhesions [bands], with partial obstruction (principal); K55.011 Focal (segmental) acute (reversible) ischemia of small intestine; K43.0 Incisional hernia with obstruction, without gangrene; K55.1 Chronic vascular disorders of intestine; Z98.84 Bariatric surgery status; I95.81 Postprocedural hypotension; Z79.899 Other long term (current) drug therapy; I10 Essential (primary) hypertension; H54.7 Unspecified visual loss; K52.9 Noninfective gastroenteritis and colitis, unspecified; M19.90 Unspecified osteoarthritis, unspecified site; Z87.891 Personal history of nicotine dependence
CPT/HCPCS: 36415; 36430; 71045; 71045-26; 74021; 74021-26; 74177; 74240; 74240-26; 80048; 80053; 81001; 83605; 83735; 83880; 84100; 85014; 85018; 85025; 85027; 86140; 86850; 86900; 86901; 86920; 86922; 88307; 94762; A9270-GY; C9113; J0171; J0330; J0694; J1100; J1170; J2020; J2185; J2405; J2704; J2710; J2795; J3010; J3410; J3411; J3420; J3475; J3490; J7030; J7050; J7120; J7121; P9016; Q9967

== ENCOUNTER 2021-06-15 08:16 | Day surgery (SDC) | payer OTHER ==
[~2021-06-15 08:16] MED LIST: Midazolam 1 MG/ML 2 ML SDV ONE; Propofol 200 MG/20 ML SDV ONE; fentaNYL 100 MCG/2 ML SDV ONE
[2021-06-15] MEDS ORDERED: Lactated Ringers 1,000 ML IV SCH (09:15)
[2021-06-15] MEDS ORDERED: Cyanocobalamin (Vitamin B12) 1,000 MCG/ML SDV IM ONE (09:30)
[2021-06-15] MEDS ORDERED: Glycopyrrolate 0.2 MG/ML 2 ML SDV IVPUSH ONE (09:45)
[2021-06-15] MEDS ORDERED: MVI, Adult with Vitamin K 10 ML, Thiamine 200 MG, Chromium/Copper/Mang/Selen/Zn 1 ML in... IV ONE ×4 (10:30)
[2021-06-15] MEDS ORDERED: Pantoprazole 40 MG Vial IVPUSH ONE (12:27)
[2021-06-15 13:28] VITALS: PULSE 83
[2021-06-15 13:58] VITALS: BP 122/76
--- NOTE | 2021-06-16 14:18 | OR ---
DATE OF PROCEDURE: 06/15/2021 SURGEON: Parrish Escobar MD PREOPERATIVE DIAGNOSIS: Postprandial epigastric and upper abdominal pain. POSTOPERATIVE DIAGNOSIS: Very minimal pouch gastritis. PROCEDURE PERFORMED: Upper gastrointestinal endoscopy with biopsies of gastric pouch for CLOtest. ANESTHESIA: IV sedation. INDICATIONS FOR PROCEDURE: This is a 56-year-old female presenting with some sense of discomfort in the upper abdomen. This generally occurs a few minutes after eating and more often than not was associated with some bloating and epigastric discomfort centered somewhat to the left of the midline immediately on ingestion of the food. The plan is to proceed with an upper GI endoscopy with biopsies and/or dilation as indicated. Potential risks including bleeding and perforation were discussed, and the patient wishes to proceed. DETAILS OF PROCEDURE: The patient was taken to the operating room and placed in a left lateral decubitus position. IV sedation was administered after which the upper GI endoscope was passed orally through the length of the esophagus and into the gastric pouch, and from there, to the gastrojejunostomy roughly 20 cm into the . The only abnormality was very mild edema of the gastric pouch. There was no bleeding or ulceration. Otherwise, no inflammatory changes within the visualized area. Biopsies were obtained from the gastric pouch and sent for CLOtest for H pylori. Minimal bleeding from the biopsy site was seen and the procedure was then concluded. The plan will be to begin the patient on some Protonix and go up to 40 mg dose daily. We will have the patient see Ana Pearson back in 2 weeks. If the symptoms persist, CT scan of the abdomen with oral contrast and IV contrast would likely be warranted as the patient's symptoms appear to be somewhat suggestive of partial small bowel obstruction. Parrish Escobar MD /[id number]
== END 2021-06-15 13:58 | disposition home or self-care (01) ==
LOC: JP.SDS 08:16
PROVIDERS: ATTEND Surgery
DX: K29.60 Other gastritis without bleeding (principal); I10 Essential (primary) hypertension; K21.9 Gastro-esophageal reflux disease without esophagitis
CPT/HCPCS: 44361; 87081; C9113; J2250; J2704; J3010; J3411; J3420; J7120; J3490

== ENCOUNTER 2021-06-26 04:27 | Inpatient (IN) | payer OTHER ==
[2021-06-26] MEDS ORDERED: HYDROmorphone 0.5 MG/0.5 ML Syringe IVPUSH ONE ×2 (04:50→05:23)
[2021-06-26] MEDS ORDERED: Sodium Chloride 0.9% 1,000 ML IV ONE (04:50)
[2021-06-26] MEDS ORDERED: Ondansetron 4 MG/2 ML SDV IVPUSH ONE (04:50)
--- NOTE | 2021-06-26 04:52 | EDM.PDOC ---
ED HPI GENERAL MEDICAL PROBLEM - General Chief Complaint: Abdominal Pain Stated Complaint: STOMACH PAINS Time Seen by Provider: 06/26/21 04:40 Source of Information: Reports: Patient History Limitations: Reports: No Limitations - History of Present Illness INITIAL COMMENTS - FREE TEXT/NARRATIVE: 56-year-old female arrives with intense abdominal pain for the past 3 hours, she has been having persistent abdominal pain waxing and waning for the past week and had an EGD by her surgeon who suspected she was developing a bowel obstruction. She has no fevers or chills, she does have persistent nausea and vomiting. She has a history of a Macy-en-Y. Her bowels are moving but it is mostly diarrhea which is unusual for her. No blood in the stool. Onset: Gradual Duration: Day(s): (Symptoms have been waxing and waning for 7 days but much worse the last 3 hours) Location: Reports: Abdomen (Central abdomen, no radiation) Quality: Reports: Sharp, Stabbing Severity: Moderate Associated Symptoms: Denies: Fever/Chills, Loss of Appetite Abdominal Pain Score (Numeric/FACES): 10 - Related Data Allergies Allergy/AdvReac Type Severity Reaction Status Date / Time No Known Allergies Allergy Verified 06/26/21 04:40 Home Meds: Home Meds Magnesium Oxide 400 mg PO DAILY 05/26/19 [History] Cholecalciferol (Vitamin D3) [Vitamin D] 5,000 unit PO DAILY 07/02/19 [History] buPROPion [Wellbutrin] 150 mg PO TID 07/02/19 [History] Glucosam/Chond/Collagen/Hyalur [Glucosamine Chondroitin] 2 cap PO BID 12/14/20 [History] Calcium Cit/Mgox/Vit D3/B6/Min [Calcium Citrate Plus Tablet] 1 each PO DAILY 06/13/21 [History] Cyanocobalamin (Vitamin B-12) [Vitamin B-12] 2,000 mcg PO DAILY 06/13/21 [History] Ferrous Fumarate/Vitamin C [Vitron-C] 1 tab PO DAILY 06/13/21 [History] Hyoscyamine [Levsin] 0.125 mg PO Q4HR PRN 06/13/21 [History] Multivitamin Childrens 1 tab PO BID 06/13/21 [History] Naltrexone 25 mg PO TID 06/13/21 [History] Potassium Chloride 20 meq PO DAILY 06/13/21 [History] Silver Sulfadiazine [Silvadene 1% Cream 20 GM] 1 applic TOP DAILY PRN 06/13/21 [History] Zinc 50 mg PO DAILY 06/13/21 [History] hydroCHLOROthiazide [Hydrochlorothiazide] 25 mg PO DAILY 06/13/21 [History] L.acidoph,Paracasei, B.lactis [Probiotic] 1 cap PO DAILY 06/15/21 [History] Pantoprazole Sodium [Protonix] 1 tab PO DAILY 06/26/21 [History] Past Medical History HEENT History: Reports: Cataract Other HEENT History: glasses Cardiovascular History: Reports: Hypertension Other Cardiovascular History: no meds Respiratory History: Reports: None Gastrointestinal History: Reports: Bowel Obstruction, Celiac Disease, Chronic Diarrhea Other Gastrointestinal History: RECENT DIAGNOSIS GLUTEN ALLERGY Genitourinary History: Reports: None 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 MECH[employer]IC History: Musculoskeletal History: Reports: Osteoarthritis Neurological History: Reports: None Psychiatric History: Reports: Anxiety, Depression Endocrine/Metabolic History: Reports: None Hematologic History: Reports: B12 Deficiency, Iron Deficiency Immunologic History: Reports: None Oncologic (Cancer) History: Reports: None Dermatologic History: Reports: None - Infectious Disease History Infectious Disease History: Reports: Chicken Pox, Measles, Mumps - Past Surgical History HEENT Surgical History: Reports: None Cardiovascular Surgical History: Reports: None GI Surgical History: Reports: Bariatric Procedure, Colonoscopy, Lysis of Adhesions, Small Bowel Other GI Surgeries/Procedures: Original RNY GBP 1989, Revision RNY GBP March 2014 , lysis of ahesions in may 2019 and June 2019, DYLLAN and SBO November 2020 and February 2021 Female Surgical History: Reports: None Endocrine Surgical History: Reports: None Musculoskeletal Surgical History: Reports: None Oncologic Surgical History: Reports: None Dermatological Surgical History: Reports: None Social & Family History - Family History Family Medical History: No Pertinent Family History - Tobacco Use Tobacco Use Status *Q: Never Tobacco User - Caffeine Use Caffeine Use: Reports: Coffee Caffeine Use Comment: 2 pots of coffee - Recreational Drug Use Recreational Drug Use: No - Living Situation & Occupation Living situation: Reports: Single, with Significant Other (lives in [place] with roommate) ED ROS GENERAL - Review of Systems Review Of Systems: See Below Constitutional: Reports: Malaise, Decreased Appetite. Denies: Fever, Chills HEENT: Reports: No Symptoms Respiratory: Denies: Shortness of Breath Cardiovascular: Denies: Chest Pain GI/Abdominal: Reports: Abdominal Pain, Diarrhea, Nausea, Vomiting : Reports: No Symptoms Skin: Reports: No Symptoms Neurological: Reports: Dizziness. Denies: Headache Psychiatric: Reports: Anxiety ED EXAM, GI/ABD - Physical Exam Exam: See Below Exam Limited By: No Limitations General Appearance: Alert, Moderate Distress Eyes: Bilateral: Normal Appearance Head: Atraumatic Respiratory/Chest: No Respiratory Distress, Lungs Clear Cardiovascular: Regular Rate, Rhythm. No: Tachycardia GI/Abdominal Exam: Normal Bowel Sounds, Soft, Tender (Very tender in the mid abdomen, moderate guarding) Extremities: No: Pedal Edema Neurological: Alert, Oriented Psychiatric: Anxious Skin Exam: Warm, Dry Course - Vital Signs Last Recorded V/S: Last Vital Signs Temp 95.0 F L 06/26/21 13:15 Pulse 81 06/26/21 14:15 Resp 16 06/26/21 14:15 BP 144/78 H 06/26/21 14:15 Pulse Ox 97 06/26/21 14:15 - Orders/Labs/Meds Orders: Active Orders 24 hr Category Date Time Status Patient Status [ADT] Routine ADT 06/26/21 07:30 Active Medication Orders Acetaminophen (Acetaminophen 500 Mg Tab) 1,000 mg PO Q8H [facility] Last Admin: 06/26/21 16:41 Dose: 1,000 mg Documented by: CHINYERE Acetaminophen (Acetaminophen 500 Mg Tab) 500 mg PO Q8H PRN PRN Reason: MILD PAIN Bupropion HCl (Bupropion 75 Mg Tab) 150 mg PO TID [facility] Last Admin: 06/26/21 16:41 Dose: Not Given Documented by: CHINYERE Calcium Gluconate (Calcium Gluconate 10% 1 Gm/10 Ml Sdv) 1 gm IVPUSH ONETIME PRN PRN Reason: SX MAGNESIUM TOXICITY Stop: 06/26/21 23:59 Celecoxib (Celecoxib 200 Mg Cap) 200 mg PO BID [facility] Cyanocobalamin (Cyanocobalamin (Vitamin B12) 1,000 Mcg/Ml Sdv) 1,000 mcg IM ONETIME ONE Stop: 06/28/21 09:01 Cyclobenzaprine HCl (Cyclobenzaprine 10 Mg Tab) 10 mg PO Q8H PRN PRN Reason: Muscle Spasm - Painful Diphenhydramine HCl (Diphenhydramine 50 Mg/Ml Sdv) 50 mg IVPUSH Q4H PRN PRN Reason: ITCHING Fentanyl Citrate (Fentanyl/Normal Saline 600 Mcg/30 Ml Button Tacker Vial) 0 mcg IV ASDIRECTED PRN; Protocol PRN Reason: Pain Last Admin: 06/26/21 12:28 Dose: 20 mcg Documented by: FINA Hydrochlorothiazide (Hydrochlorothiazide 25 Mg Tab) 25 mg PO DAILY [facility] Hydroxyzine HCl (Hydroxyzine Hcl 100 Mg/2 Ml Sdv) 100 mg IM Q4H PRN PRN Reason: breakthrough pain Dextrose/Lactated Ringer's (Dextrose 5%-Lactated Ringers) 1,000 mls @ 175 mls/hr IV ASDIRECTED [facility] Multivitamins/Minerals 10 ml/Thiamine HCl 200 mg/ Zinc 1 ml / Dextrose/Lactated Ringer's 1,013 mls @ 175 mls/hr IV DAILY@1600 [facility] Stop: 06/27/21 21:48 Last Admin: 06/26/21 16:26 Dose: 175 mls/hr Documented by: CHINYERE Cefoxitin Sodium 2 gm/ Sodium (Chloride) 50 mls @ 100 mls/hr IV Q6H [facility] Stop: 06/27/21 21:59 Last Admin: 06/26/21 16:26 Dose: 100 mls/hr Documented by: CHINYERE Potassium Acetate 20 meq/Lidocaine HCl 2 ml/ Sodium Chloride 112 mls @ 56 mls/hr IV ONETIME ONE Stop: 06/26/21 17:59 Last Admin: 06/26/21 16:26 Dose: 56 mls/hr Documented by: CHINYERE Labetalol HCl (Labetalol 20 Mg/4 Ml Syringe) 5 mg IVPUSH Q5M PRN PRN Reason: SBP over 160 OR DBP over 95 Metoclopramide HCl (Metoclopramide 10 Mg/2 Ml Sdv) 10 mg IVPUSH Q6H PRN PRN Reason: NAUSEA NOT CONTROL BY ZOFRROSY Miscellaneous Information (Remove Patch) 1 ea TRDERM ONETIME ONE Stop: 06/28/21 10:01 Naloxone HCl (Naloxone 0.4 Mg/Ml Sdv) 0.1 mg IV ASDIRECTED PRN PRN Reason: decreased respiratory rate Scopolamine Patch (Check) 1 each TOP DAILY [facility] Stop: 06/28/21 09:01 Ondansetron HCl (Ondansetron 4 Mg/2 Ml Sdv) 4 mg IVPUSH Q4H PRN PRN Reason: Nausea/Vomiting Last Admin: 06/26/21 08:59 Dose: 4 mg Documented by: CHINYERE Pantoprazole Sodium (Pantoprazole 40 Mg Vial) 40 mg IVPUSH Q24H [facility] Last Admin: 06/26/21 16:34 Dose: 40 mg Documented by: CHINYERE Scopolamine (Scopolamine 1.5 Mg Transdermal Patch) 1.5 mg TOP Q72H [facility] Stop: 06/28/21 16:01 Last Admin: 06/26/21 16:34 Dose: 1.5 mg Documented by: CHINYERE Labs: Laboratory Tests 06/26/21 06/26/21 06/26/21 Range/Units 04:55 04:55 04:55 WBC 6.8 (4.5-11.0) K/uL RBC 3.50 (3.30-5.50) M/uL Hgb 11.2 L D (12.0-15.0) g/dL Hct 34.2 L (36.0-48.0) % MCV 98 (80-98) fL MCH 32 H (27-31) pg MCHC 33 (32-36) % Plt Count 108 L (150-400) K/uL Neut % (Auto) 39.9 (36-66) % Lymph % (Auto) 28.5 (24-44) % Crosby % (Auto) 31.0 H (2-6) % Eos % (Auto) 0.3 L (2-4) % Baso % (Auto) 0.3 (0-1) % Sodium 144 (140-148) mmol/L Potassium 3.3 L (3.6-5.2) mmol/L Chloride 105 (100-108) mmol/L Carbon Dioxide 28 (21-32) mmol/L Anion Gap 14.3 H (5.0-14.0) mmol/L BUN 10 (7-18) mg/dL Creatinine 0.6 (0.6-1.0) mg/dL Est Cr Clr Drug Dosing 99.39 mL/min Estimated GFR (MDRD) > 60 (>60) Glucose 103 (74-106) mg/dL Lactic Acid 0.9 (0.4-2.0) mmol/L Calcium 8.9 (8.5-10.1) mg/dL Total Bilirubin 0.6 (0.2-1.0) mg/dL AST 17 (15-37) U/L ALT 28 (12-78) U/L Alkaline Phosphatase 88 (46-116) U/L Total Protein 6.9 (6.4-8.2) g/dL Albumin 4.1 (3.4-5.0) g/dL Globulin 2.8 (2.3-3.5) g/dL Albumin/Globulin Ratio 1.5 (1.2-2.2) Lipase (73-393) U/L SARS-CoV-2 RNA (JANICE) (NEGATIVE) 06/26/21 06/26/21 Range/Units 04:55 05:31 WBC (4.5-11.0) K/uL RBC (3.30-5.50) M/uL Hgb (12.0-15.0) g/dL Hct (36.0-48.0) % MCV (80-98) fL MCH (27-31) pg MCHC (32-36) % Plt Count (150-400) K/uL Neut % (Auto) (36-66) % Lymph % (Auto) (24-44) % Crosby % (Auto) (2-6) % Eos % (Auto) (2-4) % Baso % (Auto) (0-1) % Sodium (140-148) mmol/L Potassium (3.6-5.2) mmol/L Chloride (100-108) mmol/L Carbon Dioxide (21-32) mmol/L Anion Gap (5.0-14.0) mmol/L BUN (7-18) mg/dL Creatinine (0.6-1.0) mg/dL Est Cr Clr Drug Dosing mL/min Estimated GFR (MDRD) (>60) Glucose (74-106) mg/dL Lactic Acid (0.4-2.0) mmol/L Calcium (8.5-10.1) mg/dL Total Bilirubin (0.2-1.0) mg/dL AST (15-37) U/L ALT (12-78) U/L Alkaline Phosphatase (46-116) U/L Total Protein (6.4-8.2) g/dL Albumin (3.4-5.0) g/dL Globulin (2.3-3.5) g/dL Albumin/Globulin Ratio (1.2-2.2) Lipase 63 L (73-393) U/L SARS-CoV-2 RNA (JANICE) Negative (NEGATIVE) Meds: Medications Generic Name Dose Route Start Last Admin Trade Name Freq PRN Reason Stop Dose Admin Acetaminophen 1,000 mg 06/26/21 16:00 06/26/21 16:41 Acetaminophen 500 Mg Tab PO 1,000 mg Q8H [facility] Administration Acetaminophen 500 mg 06/26/21 14:00 Acetaminophen 500 Mg Tab PO Q8H PRN MILD PAIN Bupropion HCl 150 mg 06/26/21 15:00 06/26/21 16:41 Bupropion 75 Mg Tab PO Not Given TID [facility] Calcium Gluconate 1 gm 06/26/21 14:00 Calcium Gluconate 10% 1 Gm/10 Ml Sdv IVPUSH 06/26/21 23:59 ONETIME PRN SX MAGNESIUM TOXICITY Celecoxib 200 mg 06/27/21 09:00 Celecoxib 200 Mg Cap PO BID [facility] Cyanocobalamin 1,000 mcg 06/28/21 09:00 Cyanocobalamin (Vitamin B12) 1,000 Mcg/Ml Sdv IM 06/28/21 09:01 ONETIME ONE Cyclobenzaprine HCl 10 mg 06/26/21 13:53 Cyclobenzaprine 10 Mg Tab PO Q8H PRN Muscle Spasm - Painful Diphenhydramine HCl 50 mg 06/26/21 14:00 Diphenhydramine 50 Mg/Ml Sdv IVPUSH Q4H PRN ITCHING Fentanyl Citrate 0 mcg 06/26/21 11:55 06/26/21 12:28 Fentanyl/Normal Saline 600 Mcg/30 Ml Button Tacker Vial IV 20 mcg ASDIRECTED PRN Administration Pain Protocol Hydrochlorothiazide 25 mg 06/27/21 09:00 Hydrochlorothiazide 25 Mg Tab PO DAILY [facility] Hydroxyzine HCl 100 mg 06/26/21 14:00 Hydroxyzine Hcl 100 Mg/2 Ml Sdv IM Q4H PRN breakthrough pain Dextrose/Lactated Ringer's 1,000 mls @ 175 mls/hr 06/26/21 14:00 Dextrose 5%-Lactated Ringers IV ASDIRECTED [facility] Multivitamins/Minerals 10 ml/ 1,013 mls @ 175 mls/hr 06/26/21 16:00 06/26/21 16:26 Thiamine HCl 200 mg/ Zinc 1 ml IV 06/27/21 21:48 175 mls/hr / Dextrose/Lactated Ringer's DAILY@1600 [facility] Administration Cefoxitin Sodium 2 gm/ Sodium 50 mls @ 100 mls/hr 06/26/21 15:30 06/26/21 16:26 Chloride IV 06/27/21 21:59 100 mls/hr Q6H [facility] Administration Potassium Acetate 20 meq/ 112 mls @ 56 mls/hr 06/26/21 16:00 06/26/21 16:26 Lidocaine HCl 2 ml/ Sodium IV 06/26/21 17:59 56 mls/hr Chloride ONETIME ONE Administration Labetalol HCl 5 mg 06/26/21 14:00 Labetalol 20 Mg/4 Ml Syringe IVPUSH Q5M PRN SBP over 160 OR DBP over 95 Metoclopramide HCl 10 mg 06/26/21 14:00 Metoclopramide 10 Mg/2 Ml Sdv IVPUSH Q6H PRN NAUSEA NOT CONTROL BY ZOFRAN Miscellaneous Information 1 ea 06/28/21 10:00 Remove Patch TRDERM 06/28/21 10:01 ONETIME ONE Naloxone HCl 0.1 mg 06/26/21 08:00 Naloxone 0.4 Mg/Ml Sdv IV ASDIRECTED PRN decreased respiratory rate Scopolamine Patch 1 each 06/27/21 09:00 Check TOP 06/28/21 09:01 DAILY [facility] Ondansetron HCl 4 mg 06/26/21 08:51 06/26/21 08:59 Ondansetron 4 Mg/2 Ml Sdv IVPUSH 4 mg Q4H PRN Administration Nausea/Vomiting Pantoprazole Sodium 40 mg 06/26/21 16:00 06/26/21 16:34 Pantoprazole 40 Mg Vial IVPUSH 40 mg Q24H [facility] Administration Scopolamine 1.5 mg 06/26/21 16:00 06/26/21 16:34 Scopolamine 1.5 Mg Transdermal Patch TOP 06/28/21 16:01 1.5 mg Q72H [facility] Administration Discontinued Medications Generic Name Dose Route Start Last Admin Trade Name Freq PRN Reason Stop Dose Admin Bupivacaine HCl Confirm 06/26/21 08:47 06/26/21 11:52 Bupivacaine 0.5% 50 Ml Mdv Administered 06/26/21 08:48 20 ml Dose Administration 50 ml .ROUTE .STK-MED ONE Bupivacaine HCl/Epinephrine Bitart Confirm 06/26/21 08:46 Bupivacaine 0.5%/Epinephrine 1:200,000 50 Ml Mdv Administered 06/26/21 08:47 Dose 50 ml .ROUTE .STK-MED ONE Ropivacaine 42 ml/ 0 ml 06/26/21 08:30 06/26/21 10:29 Dexamethasone 8 mg/ NERVRT 80 syringe Epinephrine HCl 0.4 mg/ Sodium ASDIRECTED [facility] Administration Chloride 35.6 ml Dexamethasone Confirm 06/26/21 09:05 Dexamethasone 4 Mg/Ml Sdv Administered 06/26/21 09:06 Dose 4 mg .ROUTE .STK-MED ONE Fentanyl 50 mcg 06/26/21 06:58 06/26/21 07:07 Fentanyl 100 Mcg/2 Ml Sdv IVPUSH 06/26/21 06:59 50 mcg ONETIME ONE Administration Fentanyl Confirm 06/26/21 09:04 Fentanyl 250 Mcg/5 Ml Sdv Administered 06/26/21 09:05 Dose 250 mcg .ROUTE .STK-MED ONE Fentanyl Confirm 06/26/21 10:09 Fentanyl 250 Mcg/5 Ml Sdv Administered 06/26/21 10:10 Dose 250 mcg .ROUTE .STK-MED ONE Fentanyl Citrate 0 mcg 06/26/21 11:00 06/26/21 11:43 Fentanyl/Normal Saline 600 Mcg/30 Ml Button Tacker Vial IV 600 mcg ASDIRECTED PRN Administration Pain Protocol Glycopyrrolate Confirm 06/26/21 09:05 Glycopyrrolate 0.2 Mg/Ml 5 Ml Mdv Administered 06/26/21 09:06 Dose 1 mg .ROUTE .STK-MED ONE Hydromorphone HCl 0.5 mg 06/26/21 04:50 06/26/21 04:57 Hydromorphone 0.5 Mg/0.5 Ml Syringe IVPUSH 06/26/21 04:51 0.5 mg ONETIME ONE Administration Hydromorphone HCl 0.5 mg 06/26/21 05:23 06/26/21 05:28 Hydromorphone 0.5 Mg/0.5 Ml Syringe IVPUSH 06/26/21 05:24 0.5 mg ONETIME ONE Administration Hydromorphone HCl 0 mg 06/26/21 07:42 06/26/21 08:19 Hydromorphone/Normal Saline 15 Mg/30 Ml Button Tacker IV 15 mg ASDIRECTED PRN Administration [employer]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 Protocol Hydroxyzine HCl 100 mg 06/26/21 12:27 06/26/21 12:33 Hydroxyzine Hcl 100 Mg/2 Ml Sdv IM 06/26/21 12:28 100 mg ONETIME ONE Administration Sodium Chloride 1,000 mls @ 999 mls/hr 06/26/21 04:50 06/26/21 04:57 Normal Saline IV 06/26/21 05:50 999 mls/hr ONETIME ONE Administration Ketamine HCl 18.6 mg/ Sodium 19.996 mls @ 19.996 mls/hr 06/26/21 08:30 Chloride IV ASDIRECTED [facility] 5 MCG/KG/MIN Magnesium Sulfate 2.5 gm/ 105 mls @ 210 mls/hr 06/26/21 08:30 Sodium Chloride IV ASDIRECTED [facility] Magnesium Sulfate 2.7 gm/ 255.4 mls @ 31.925 mls/hr 06/26/21 08:30 06/26/21 13:34 Sodium Chloride IV 06/26/21 16:29 31.925 mls/hr ONETIME ONE Administration Cefoxitin Sodium 2 gm/ Sodium 50 mls @ 100 mls/hr 06/26/21 08:30 06/26/21 09:30 Chloride IV 06/26/21 08:59 100 mls/hr ONETIME ONE Administration Linezolid Confirm 06/26/21 08:46 Zyvox Administered 06/26/21 08:47 Dose 300 mls @ as directed .ROUTE .STK-MED ONE Lactated Ringer's 1,000 mls @ 999 mls/hr 06/26/21 09:00 06/26/21 08:00 Ringers, Lactated IV 06/26/21 10:00 999 mls/hr ONETIME ONE Administration Dextrose/Lactated Ringer's 1,000 mls @ 150 mls/hr 06/26/21 10:00 06/26/21 13:32 Dextrose 5%-Lactated Ringers IV 150 mls/hr ASDIRECTED [facility] Administration Lactated Ringer's Confirm 06/26/21 10:58 Ringers, Lactated Administered 06/26/21 10:59 Dose 1,000 mls @ as directed .ROUTE .STK-MED ONE Ketamine HCl 31 mg 06/26/21 08:30 Ketamine 500 Mg/5 Ml Mdv IV ASDIRECTED [facility] Lidocaine/Epinephrine Confirm 06/26/21 08:47 06/26/21 11:52 Lidocaine 1% With Epinephrine 1:100,000 50 Ml Mdv Administered 06/26/21 08:48 20 ml Dose Administration 50 ml .ROUTE .STK-MED ONE Lorazepam 0.5 mg 06/26/21 05:41 06/26/21 05:48 Lorazepam 2 Mg/Ml Sdv IVPUSH 06/26/21 05:42 0.5 mg ONETIME ONE Administration Meropenem Confirm 06/26/21 08:46 06/26/21 10:23 Meropenem 500 Mg Sdv Administered 06/26/21 08:47 500 mg Dose Administration 500 mg .ROUTE .STK-MED ONE Neostigmine Methylsulfate Confirm 06/26/21 09:05 Neostigmine Methylsulfate 1 Mg/Ml 5 Ml Syringe Administered 06/26/21 09:06 Dose 5 mg .ROUTE .STK-MED ONE Ondansetron HCl 4 mg 06/26/21 04:50 06/26/21 04:57 Ondansetron 4 Mg/2 Ml Sdv IVPUSH 06/26/21 04:51 4 mg ONETIME ONE Administration Ondansetron HCl Confirm 06/26/21 09:05 Ondansetron 4 Mg/2 Ml Sdv Administered 06/26/21 09:06 Dose 4 mg .ROUTE .STK-MED ONE Propofol Confirm 06/26/21 09:05 Propofol 200 Mg/20 Ml Sdv Administered 06/26/21 09:06 Dose 200 mg .ROUTE .STK-MED ONE Rocuronium [place] Confirm 06/26/21 09:05 Rocuronium 50 Mg/5 Ml Vial Administered 06/26/21 09:06 Dose 50 mg .ROUTE .STK-MED ONE Rocuronium [place] Confirm 06/26/21 10:08 Rocuronium 50 Mg/5 Ml Vial Administered 06/26/21 10:09 Dose 50 mg .ROUTE .STK-MED ONE Succinylcholine Chloride Confirm 06/26/21 09:05 Succinylcholine 200 Mg/10 Ml Mdv Administered 06/26/21 09:06 Dose 200 mg .ROUTE .STK-MED ONE - Re-Assessments/Exams Free Text/Narrative Re-Assessment/Exam: 06/26/21 05:08 An IV was started and the patient was given 0.5 mg of IV Dilaudid and 4 mg of IV Zofran. CBC, CMP, lactic acid and lipase were drawn, patient will likely need a CT of the abdomen and pelvis. 06/26/21 05:51 Patient continually asked for more for pain control he was given an additional 0.5 mg of IV Dilaudid, followed by 25 mg of IV Ativan. CBC returned normal, white count is normal, entire chemistry panel is normal and lactic acid is norm al. CT of the abdomen and pelvis will be ordered. 06/26/21 07:22 CT shows likely small bowel obstruction, this was discussed with Dr. Escobar and he accepted her for admission. Departure - Departure Time of Disposition: 07:50 Disposition: Admitted As Inpatient 64 Clinical Impression: Small bowel obstruction Abdominal pain Qualifiers: Abdominal location: generalized Qualified Code(s): R10.84 - Generalized abdominal pain - Discharge Information Sepsis Event Note (ED) - Evaluation Sepsis Screening Result: No Definite Risk
[2021-06-26] MEDS ORDERED: LORazepam 2 MG/ML SDV IVPUSH ONE (05:41)
[2021-06-26] MEDS ORDERED: fentaNYL 100 MCG/2 ML SDV IVPUSH ONE (06:58)
[2021-06-26] MEDS ORDERED: HYDROmorphone/Normal Saline 15 MG/30 ML PCA IV PRN (07:42)
[2021-06-26] MEDS ORDERED: Naloxone 0.4 MG/ML SDV IV PRN (08:00)
--- NOTE | 2021-06-26 08:25 | CRLCT ---
For Patients: As a result of the Cures Act, medical imaging exams and procedure reports are released immediately into your electronic medical record. You may view this report before your referring provider. If you have questions, please contact your health care provider. INDICATION: Abdominal pain. COMPARISON: CT abdomen and pelvis with intravenous contrast March 01, 2021. TECHNIQUE: CT abdomen and pelvis without intravenous or oral contrast; coronal and sagittal reformats. FINDINGS: No abnormal intra pulmonary nodular densities through the lung bases. No evidence of pleural effusion. Normal size cardiac silhouette without any evidence of pericardial effusion . No focal hepatic or splenic pathology. No pancreatic pathology. Distended gallbladder without any pericholecystic inflammatory changes or evidence of cholelithiasis. No adrenal pathology. No kidney stones or obstructive uropathy. No retroperitoneal lymphadenopathy. No evidence of abdominal or pelvic ascites. No pneumoperitoneum. Appendix is unremarkable. Copious amounts of retained stool identified in the colon. Macy-en-Y gastric bypass surgery. Marked dilatation of the small bowl involving the afferent loop and part of the efferent loop to the level of the anastomosis; stable in appearance when compared to March 01, 2021. Also appreciated is evidence of twisted mesentery at the site of obstruction. Collapsed distal small bowel. No evidence of pneumatosis. IMPRESSION: 1. Status post Macy-en-Y gastric bypass surgery. 2. Evidence of chronic dilatation of the afferent loop and the efferent loop to the level of the anastomosis; indicating intermittent small bowel obstruction to the level of the twisted mesentery. 3. No pneumoperitoneum. Please note that all CT scans at this facility use dose modulation, iterative reconstruction, and/or weight-based dosing when appropriate to reduce radiation dose to as low as reasonably achievable. Dictated by Mike Smalls MD @ 06/26/2021 8:23:42 AM (Electronically Signed)
[2021-06-26] MEDS ORDERED: MAGNESIUM SULFATE IV ONE (08:30)
[2021-06-26] MEDS ORDERED: Ketamine 500 MG/5 ML MDV IV SCH (08:30)
[2021-06-26] MEDS ORDERED: KETAMINE IV SCH (08:30)
[2021-06-26] MEDS ORDERED: cefOXitin 2 GM in Sodium Chloride 0.9% 50 ML IV ONE (08:30)
[2021-06-26] MEDS ORDERED: SODIUM CHLORIDE 0.9% IV ONE (08:30)
[2021-06-26] MEDS ORDERED: SODIUM CHLORIDE 0.9% IV SCH (08:30)
[2021-06-26] MEDS ORDERED: Magnesium Sulfate 2.5 GM in Sodium Chloride 0.9% 100 ML IV SCH (08:30)
[2021-06-26] MEDS ORDERED: Meropenem 500 MG SDV ONE (08:46)
[2021-06-26] MEDS ORDERED: Bupivacaine 0.5%/EPINEPHrine 1:200,000 50 ML MDV ONE (08:46)
[2021-06-26] MEDS ORDERED: Bupivacaine 0.5% 50 ML MDV ONE (08:47)
[2021-06-26] MEDS ORDERED: Lidocaine 1% with EPINEPHrine 1:100,000 50 ML MDV ONE (08:47)
[2021-06-26] MEDS ORDERED: Ondansetron 4 MG/2 ML SDV IVPUSH PRN ×2 (08:51→10:48)
[2021-06-26] MEDS ORDERED: Lactated Ringers 1,000 ML IV ONE (09:00)
[2021-06-26] MEDS ORDERED: fentaNYL 250 MCG/5 ML SDV ONE ×2 (09:04→10:09)
[2021-06-26] MEDS ORDERED: Dexamethasone 4 MG/ML SDV ONE (09:05)
[2021-06-26] MEDS ORDERED: Neostigmine Methylsulfate 1 MG/ML 5 ML Syringe ONE (09:05)
[2021-06-26] MEDS ORDERED: Rocuronium 50 MG/5 ML Vial ONE ×2 (09:05→10:08)
[2021-06-26] MEDS ORDERED: Glycopyrrolate 0.2 MG/ML 5 ML MDV ONE (09:05)
[2021-06-26] MEDS ORDERED: Succinylcholine 200 MG/10 ML MDV ONE (09:05)
[2021-06-26] MEDS ORDERED: Ondansetron 4 MG/2 ML SDV ONE (09:05)
[2021-06-26] MEDS ORDERED: Propofol 200 MG/20 ML SDV ONE (09:05)
[2021-06-26] MEDS ORDERED: Dextrose 5%-Lactated Ringers 1,000 ML IV SCH ×2 (10:00→14:00)
[2021-06-26] MEDS ORDERED: diphenhydrAMINE 25 MG Cap PO PRN (10:48)
[2021-06-26] MEDS ORDERED: Naloxone 0.4 MG/ML SDV IVPUSH PRN (10:48)
[2021-06-26] MEDS ORDERED: diphenhydrAMINE 50 MG/ML SDV IVPUSH PRN ×2 (10:48→14:00)
[2021-06-26] MEDS ORDERED: Lactated Ringers 1,000 ML ONE (10:58)
[2021-06-26] MEDS ORDERED: fentaNYL/Normal Saline 600 MCG/30 ML PCA Vial IV PRN (11:00)
[2021-06-26] MEDS ORDERED: hydrOXYzine HCL 100 MG/2 ML SDV IM ONE (12:27)
[2021-06-26] MEDS: fentaNYL/Normal Saline 600 MCG/30 ML PCA Vial IV PRN (12:28)
[2021-06-26] MEDS ORDERED: Cyclobenzaprine 10 MG Tab PO PRN (13:53)
[2021-06-26] MEDS ORDERED: Calcium Gluconate 10% 1 GM/10 ML SDV IVPUSH PRN (14:00)
[2021-06-26] MEDS ORDERED: hydrOXYzine HCL 100 MG/2 ML SDV IM PRN (14:00)
[2021-06-26] MEDS ORDERED: Metoclopramide 10 MG/2 ML SDV IVPUSH PRN (14:00)
[2021-06-26] MEDS ORDERED: Acetaminophen 500 MG Tab PO PRN (14:00)
[2021-06-26] MEDS ORDERED: Labetalol 20 MG/4 ML Syringe IVPUSH PRN (14:00)
[2021-06-26] MEDS ORDERED: Scopolamine 1.5 MG Transdermal Patch TOP SCH (16:00)
[2021-06-26] MEDS ORDERED: Potassium Acetate 20 MEQ, Lidocaine 1% 2 ML in Sodium Chloride 0.9% 100 ML IV ONE (16:00)
[2021-06-26] MEDS ORDERED: MVI, Adult with Vitamin K 10 ML, Thiamine 200 MG, Zinc/Copper/Manganese/Selenium 1 ML i... IV SCH ×4 (16:00)
[2021-06-26] MEDS: cefOXitin 2 GM in Sodium Chloride 0.9% 50 ML IV SCH ×2 (16:26→21:44)
[2021-06-26] MEDS: Pantoprazole 40 MG Vial IVPUSH SCH (16:34)
[2021-06-26] MEDS: Acetaminophen 500 MG Tab PO SCH ×2 (16:41→23:59)
[2021-06-26] MEDS: Lactated Ringers 500 ML IV SCH (21:45)
[2021-06-27] MEDS: fentaNYL/Normal Saline 600 MCG/30 ML PCA Vial IV PRN (00:10)
[2021-06-27] MEDS: Lactated Ringers 500 ML IV SCH (02:56)
[2021-06-27] MEDS: cefOXitin 2 GM in Sodium Chloride 0.9% 50 ML IV SCH ×4 (04:00→21:15)
[2021-06-27] MEDS ORDERED: Iopamidol 612 MG/ML 50 ML SDV PO STA (04:03)
[2021-06-27] MEDS ORDERED: Lactated Ringers 500 ML IV ONE (07:15)
--- NOTE | 2021-06-27 07:16 | CRLCR ---
For Patients: As a result of the Century Cures Act, medical imaging exams and procedure reports are released immediately into your electronic medical record. You may view this report before your referring provider. If you have questions, please contact your health care provider. INDICATION: Small bowel obstruction; status post resection; checking for leak. COMPARISON: CT abdomen and pelvis without intravenous contrast June 26, 2021. TECHNIQUE: Limited upper GI/small bowel follow-through; 3 radiographs are available obtained before the administration of oral contrast, 1 minute and 15 minutes post administration of oral contrast. FINDINGS: The employment agency manager film reveals a dilated loop of small bowel in the mid abdomen. Multiple surgical sutures identified in the left mid abdomen. Immediate post administration of contrast reveals a small gastric lumen. The 15 minute film reveals contrast within a small bowel loop in the mid abdomen and the contrast slowly trickles into a dilated loop of bowel. Continued imaging followup suggested. No extravasation of contrast identified on these available images. IMPRESSION: 1. No evidence of extravasation of orally administered contrast on these images. 2. Distended loop of small bowel in the mid abdomen. 3. Gastric bypass . Dictated by Mike Smalls MD @ 06/27/2021 7:16:21 AM (Electronically Signed)
[2021-06-27] MEDS: Acetaminophen 500 MG Tab PO SCH ×2 (08:35→17:01)
[2021-06-27] MEDS: SCOPOLAMINE PATCH CHECK TOP SCH (08:36)
[2021-06-27] MEDS: Celecoxib 200 MG Cap PO SCH ×2 (08:36→20:02)
[2021-06-27] MEDS: Hydrochlorothiazide 25 MG Tab PO SCH (08:36)
--- NOTE | 2021-06-27 08:54 | PN ---
DATE OF SERVICE: 06/27/2021 SUBJECTIVE: Melisa is postop day 1. She received 2 boluses of lactated Ringer's 500 mL each for decreased urine output. Her oral intake was 130. Urine output via Oquendo catheter is 1625. Pain has been controlled with the FLATLOCK SEWING MACHINE OPERATOR. In fact she is quite sleepy. Staff has requested to have it turned down a little bit. LABORATORY DATA: Hemoglobin this morning was 7.9. Potassium 3.4. Albumin 2.4. BNP is 473 and ferritin was 135. REVIEW OF SYSTEMS: Remainder of review of systems negative for any pertinent positives and negatives. OBJECTIVE: GENERAL: Melisa Stark is a pleasant 56-year-old female. She is quite sleepy. Answers questions appropriately. VITAL SIGNS: TPR 97.5, 95, 18, blood pressure 102/56. HEENT: Negative. NECK: Supple. HEART: Regular rate and rhythm. LUNGS: Clear. ABDOMEN: Dressing dry and intact. Abdominal binder is on. EXTREMITIES: Without peripheral edema. ASSESSMENT: Exploratory laparotomy with lysis of extensive adhesions. 1. Small bowel resection. 2. Separate enterostomy to restore small bowel Macy-en-Y anatomy. 3. Small bowel strictureplasty. 4. Enterotomy for tube decompression of small bowel. 5. Repair of incarcerated incisional hernia. 6. Placement of Interceed mesh x2. POSTOPERATIVE DIAGNOSES: Adhesive small bowel obstruction secondary to intensive adhesions. Involving the distal biliary pancreatic limb and separate stricture attached to the lower limb of the small bowel. Date of procedure 06/26/2021. PLAN: 1. Type and cross 2 units of packed red blood cells. 2. Give 1 unit of packed red blood cells. 3. Decrease IV to 100 mL per hour at 2000. 4. Lactated Ringer's 500 bolus now. 5. Decrease FLATLOCK SEWING MACHINE OPERATOR demand dose to 10. 6. K-Phos 30 millimoles in normal saline IV. 7. Check abdominal flat and upright x-ray in a.m. 8. Check CBC, CMP, mag, phos in a.m. 9. We will evaluate p.r.n. or in a.m. Ana Pearson PA-C /[id number]
[2021-06-27] MEDS: Potassium Phos in 0.9 % NaCl 15 MMOL in Premix Bag 1 BAG IV SCH ×4 (09:38→13:26)
[2021-06-27] MEDS: Pantoprazole 40 MG Vial IVPUSH SCH (15:06)
[2021-06-27] MEDS ORDERED: MVI, Adult with Vitamin K 10 ML, Thiamine 200 MG, Zinc/Copper/Manganese/Selenium 1 ML i... IV SCH ×4 (16:00)
[2021-06-27] MEDS: Dextrose 5%-Lactated Ringers 1,000 ML IV SCH (22:18)
[2021-06-28] MEDS: Acetaminophen 500 MG Tab PO SCH ×4 (00:42→23:00)
--- NOTE | 2021-06-28 06:49 | CRLCR ---
For Patients: As a result of the Century Cures Act, medical imaging exams and procedure reports are released immediately into your electronic medical record. You may view this report before your referring provider. If you have questions, please contact your health care provider. INDICATION: Small bowel obstruction status post resection. History of gastric bypass. COMPARISON: Upper GI study 06/27/2021. CT of the abdomen and pelvis 06/26/2021. TECHNIQUE: Abdomen, 4 views. FINDINGS: Enteric contrast has progressed to the ascending colon. There are few mildly prominent loops of small bowel in the central abdomen which have decreased in caliber compared to prior exam. No pneumatosis. No free air on upright view. No evidence of leak. Surgical sutures left abdomen. Surgical skin alba slightly to the left of midline. Pelvic phleboliths. Degenerative changes of the lower lumbar spine. IMPRESSION: 1. Few mildly prominent loops of small bowel in the central abdomen which have decreased in caliber compared to prior exam. 2. Enteric contrast has progressed to the ascending colon. No evidence of leak. Dictated by Ana Lopez MD @ 06/28/2021 6:47:36 AM (Electronically Signed)
--- NOTE | 2021-06-28 07:37 | PN ---
DATE OF SERVICE: 06/28/2021 HISTORY: Melisa states her pain has been controlled. She has had marginal urine output. She did receive 2 units of packed red blood cells yesterday. Hemoglobin this morning is 8.4 and platelets 64. Abdominal x-ray flat and upright was negative. REVIEW OF SYSTEMS: Remainder of review of systems negative for any pertinent positives and negatives. OBJECTIVE: GENERAL: Melisa Stark is a pleasant 56-year-old female. She is much more alert today. VITAL SIGNS: TPR 97.6, 103, 18, and blood pressure 123/74. HEENT: Negative. NECK: Supple. HEART: Regular rate and rhythm. LUNGS: Clear. ABDOMEN: Dressing dry and intact. Oquendo catheter in place and output 750 for the past 24 hours. EXTREMITIES: Without peripheral edema. ASSESSMENT: Exploratory laparotomy with lysis of adhesions. 1. Small bowel resection. 2. Separate enterotomy to restore small bowel Macy-en-Y anatomy. 3. Small bowel strictureplasty. 4. Enterotomy for tube decompression of small bowel. 5. Repair of incarcerated incisional hernia. 6. Placement of Interceed mesh x2. POSTOPERATIVE DIAGNOSES: Adhesive small bowel obstruction secondary to intensive adhesions, involving the distal biliary pancreatic limb and separate stricture attached to the lower limb of the small bowel. DATE OF PROCEDURE: 06/26/2021. SURGEON: Parrish Escobar MD PLAN: 1. Type and cross 2 units packed red blood cells. 2. Give 1 unit of packed red blood cells. 3. Leave Oquendo catheter in for accurate intake and output. 4. K-Phos 30 millimoles IV 1 time today. 5. Check CBC, CMP, BNP, mag, and phos in a.m. Continue use of incentive spirometer and ambulation. We will evaluate p.r.n. or in a.m. Ana Pearson PA-C /[id number]
[2021-06-28] MEDS: Celecoxib 200 MG Cap PO SCH ×2 (08:20→20:10)
[2021-06-28] MEDS: Hydrochlorothiazide 25 MG Tab PO SCH (08:20)
[2021-06-28] MEDS: SCOPOLAMINE PATCH CHECK TOP SCH (08:21)
[2021-06-28] MEDS ORDERED: Cyanocobalamin (Vitamin B12) 1,000 MCG/ML SDV IM ONE (09:00)
[2021-06-28] MEDS: Dextrose 5%-Lactated Ringers 1,000 ML IV SCH ×2 (09:03→20:10)
[2021-06-28] MEDS: Potassium Phos in 0.9 % NaCl 15 MMOL in Premix Bag 1 BAG IV SCH ×4 (09:30→12:42)
--- NOTE | 2021-06-28 12:45 | OR ---
DATE OF PROCEDURE: 06/26/2021 SURGEON: Parrish Escobar MD PREOPERATIVE DIAGNOSIS: Small bowel obstruction. POSTOPERATIVE DIAGNOSES: Small bowel obstruction secondary to: 1. Extensive adhesions involving distal biliopancreatic limb. 2. Separate stricture involving the mid common limb of small bowel. 3. Incarcerated incisional hernia. 4. Marked distention of proximal small bowel. OPERATIVE PROCEDURES: Exploratory laparotomy with lysis of extensive adhesions and: 1. Small bowel resection (16851). 2. Separate enteroenterostomy for yazidism of small bowel Macy-en-Y anatomy (36862). 3. Small bowel stricturoplasty (35763). 4. Enterotomy for tube decompression of dilated proximal small bowel (60696). 5. Repair of incarcerated incisional hernia (38501). 6. Placement of Interceed mesh x2 to limit recurrent adhesion formation between pelvic and abdominal wall and underlying viscera (71469). ANESTHESIA: General. CLOTH BEAMER: Ana Pearson PA-C. INDICATIONS FOR PROCEDURE: A 56-year-old status post originally Macy-en-Y gastric bypass in the and a more recent revision with some subsequent problems with bowel obstruction, who presents now after several-week history of some partial small-bowel obstruction symptoms, now with quite severe abdominal discomfort and CT scan showing multiple markedly dilated small bowel loops in and around the primary jejunojejunostomy. The plan is to proceed with exploratory laparotomy with lysis of adhesions, small bowel resection as indicated and other procedures based on operative findings. Potential risks including bleeding, infection, leaks from various GI tract closures, problems with bowel obstruction over time, as well as possibility of cardiopulmonary, septic, or hemorrhagic complications leading to were discussed, and the patient wishes to proceed. DETAILS OF PROCEDURE: The patient was taken to the operating room. After general endotracheal anesthesia was induced, a Oquendo catheter was inserted. In the abdomen, a previous upper midline incision basically from the xiphoid to the umbilicus was made and carried down through the full-thickness of the abdominal wall. Upon entering peritoneal cavity, the patient was noted to have significant adhesion directly underneath the incision likely related to previous Interceed mesh that had been placed away from that. However, there were quite extensive, quite edematous adhesions throughout the upper and midabdomen. These were gradually taken down with a combination of blunt dissection, cautery dissection, and surgical alba. Eventually, the underlying pathology delineated. The patient had a point of adhesion between the distal biliopancreatic limb and the anterior abdominal wall to the left of the midline, and around this, the bowel appeared to have twisted at a point somewhat proximal to the primary jejunojejunostomy. This was associated with some hemorrhage and an intense inflammation at the base of mesentery adjacent to the bowel. This was gradually taken down with a combination of blunt and cautery dissection and some surgical alba, and at that point, it was felt that the quality of the bowel involved in that area just proximal to the jejunojejunostomy was inadequate to allow to be remaining in place. Given this, the distal most biliopancreatic limb was then divided and the Macy limb just proximal to the jejunojejunostomy and the common limb just distal to the jejunojejunostomy were all divided with SHEKHAR alba as was the underlying mesentery and the complex consisting of the previous jejunojejunostomy and roughly 12 cm of the distal biliopancreatic limb was then delivered from the field. To allow more adequate closure and safer anastomosis, a small enterotomy was then made in the distal divided end of the biliopancreatic limb. [place] sump tube was then placed and a large volume of air and fluid was removed, around 1800 mL of fluid was removed and a substantial amount of air in addition to that was removed, and at that point, the more proximal small bowel was satisfactorily decompressed. During this time, some distention in the Macy limb had been noted earlier, and during manipulation of bowel, removed more of the area distal to the primary jejunojejunostomy allowing this area not necessarily be required to have it be decompressed. The primary small bowel Macy-en-Y anatomy was then initiated with an initial [id number] anastomosis between what had been the distal most biliopancreatic limb and the proximal most common limb. This was done with internal firing of the Endo-SHEKHAR 60 mm stapler followed by a 30 mm internal firing, was then closed transversely with the same stapler and the angles anastomosed and mesenteric defect approximated with some 3-0 Vicryl stitch. Generally, during closing of these mesenteric defects around the Macy-en-Y gastric bypass, patients have been soaked, but in this case, there appeared to be perhaps some degree of over aggressive foreign body reaction with soak based on the above noted findings. The Macy-en-Y anatomy was then restored with a second anastomosis roughly 15 cm distal to the first anastomosis between what had been a distal most divided Macy limb and the small bowel at that level just distal to the first anastomosis. Same sequence of alba and mesenteric angle and closure sutures were used. At that point, appeared to be satisfactorily controlled. There was an additional area of stricturing in the mid common limb related to some previous adhesions and this was treated by means of stricturoplasty with opening of the antimesenteric border at the point of the stricture. This was treated with same sequence of alba with 60 mm internal firing followed by a 30 mm internal firing of the SHEKHAR stapler. Common opening closed transversely with a SHEKHAR purple load and the angles anastomosed and reinforced with some 3-0 Vicryl stitch. In this case, there was no mesenteric defect to close. At this point, no further problems noted. During entry to the abdomen, the patient was noted to have an incisional hernia in the lower one-third of the incision. This hernia sac was dissected away from the underlying incarcerated omentum and had been sent as a separate specimen. The area was then irrigated with antibiotic-containing saline solution. No bleeding or other problems were noted. The area underlying the incision there down across the lower abdomen and pelvis, Interceed mesh was placed to limit recurrent adhesion formation between those surfaces and the underlying viscera. The midline fascia was then approximated with #2 Vicryl stitch, which included closure of the area of herniation. Subcutaneous tissue then approximated with some 3-0 Vicryl stitch and the skin with alba. Prior to closure, bilateral transverse abdominis plane blocks were placed, and the fascia then anesthetized with 1% lidocaine mixed with Marcaine. The patient was taken to the recovery room in satisfactory condition. Physician timber management assistant, Ana Pearson, played an essential role in assisting in this case, helping to position the patient, retract structures as needed, as well as suturing and cutting sutures when indicated. Her presence improved patient safety and decreased operative time. Parrish Escobar MD /[id number]
[2021-06-28] MEDS: Pantoprazole 40 MG Delayed-Release Granules 1 Packet PO SCH (16:21)
[2021-06-29] MEDS: Dextrose 5%-Lactated Ringers 1,000 ML IV SCH (05:00)
--- NOTE | 2021-06-29 07:45 | PN ---
DATE OF SERVICE: 06/29/2021 SUBJECTIVE: Melisa states her pain has been controlled. She is up ambulating. She did have a small bowel movement. Oral intake 2690. Urine output via Oquendo catheter 3350. Vital signs have been stable. REVIEW OF SYSTEMS: Remainder of review of systems negative for any pertinent positives and negatives. LABS: Hemoglobin 7.8 after receiving a total of 3 units of packed red blood cells, platelets are 58 and BNP is 240. OBJECTIVE: GENERAL: Melisa is a pleasant 56-year-old female. She is alert, orientated, quite talkative this morning. VITAL SIGNS: TPR is 97.8, 69, 16. Blood pressure 94/56. HEENT: Negative. NECK: Supple. HEART: Regular rate and rhythm. LUNGS: Clear. ABDOMEN: Aquacel dressings on. Abdominal binder is on. EXTREMITIES: Without peripheral edema. ASSESSMENT: Exploratory laparotomy with lysis of extensive adhesions. 1. Small bowel resection. 2. Separate for pentecostal of small bowel Macy-en-Y anatomy. 3. Small bowel strictureplasty. 4. Enteroenterostomy for tube decompression of dilated proximal small bowel. 5. Repair of incarcerated incisional hernia. 6. Placement of Interceed mesh x2 to limit recurrent adhesion formation between pelvic and abdominal wall and underlying viscera. Date of procedure 06/26/2021. Surgeon: Parrish Escobar MD. PLAN: 1. Magnesium 2 g IV every 6 hours x72 hours. 2. Give 1 unit of packed red blood cells today. 3. Step 3 gastric bypass diet, lactose free and gluten free. 4. Colace 100 mg b.i.d. 5. Discontinue Oquendo catheter. 6. Decrease IV to TKO. 7. Check CBC, CMP, phos, and BNP in a.m. 8. Pharmacy consult to evaluate medications if any of her current medications can cause low platelets. 9. We will evaluate p.r.n. or in a.m. Ana Pearson PA-C /[id number]
[2021-06-29] MEDS ORDERED: Dextrose 5%-Lactated Ringers 1,000 ML IV SCH (08:00)
[2021-06-29] MEDS: Celecoxib 200 MG Cap PO SCH ×2 (08:17→20:42)
[2021-06-29] MEDS: Acetaminophen 500 MG Tab PO SCH ×2 (08:17→15:34)
[2021-06-29] MEDS: Hydrochlorothiazide 25 MG Tab PO SCH (08:17)
[2021-06-29] MEDS: Docusate Sodium 100 MG Cap PO SCH ×2 (10:00→20:42)
[2021-06-29] MEDS: Magnesium Sulfate/Water 2 GM/50 ML BAG IV SCH ×3 (10:00→22:02)
[2021-06-29] MEDS ORDERED: oxyCODONE 5 MG Tab PO PRN (12:53)
[2021-06-29] MEDS: Pantoprazole 40 MG Delayed-Release Granules 1 Packet PO SCH (15:34)
[2021-06-30] MEDS: Acetaminophen 500 MG Tab PO SCH ×3 (00:19→09:05)
[2021-06-30] MEDS: Magnesium Sulfate/Water 2 GM/50 ML BAG IV SCH (04:03)
--- NOTE | 2021-06-30 07:44 | DISCH ---
ADMISSION DIAGNOSES: 1. Partial small bowel obstruction. 2. SP Macy-en-Y gastric bypass surgery. 3. Unspecified surgical malabsorption. 4. B12 deficiency. 5. Magnesium deficiency. DISCHARGE DIAGNOSES: 1. Exploratory laparotomy with lysis of extensive adhesions. a. Small-bowel resection. b. Separate enteroenterostomy for gnosticist of small bowel Macy-en-Y anatomy. c. Small bowel strictureplasty. d. Enterotomy for tube decompression of dilated proximal small bowel. e. Repair of incarcerated incisional hernia. f. Placement of Interceed mesh x2 to limit recurrent adhesion formation between pelvic and abdominal wall and underlying viscera. POSTOPERATIVE DIAGNOSES: 1. Small-bowel obstruction secondary to: a. Extensive adhesions involving distal biliopancreatic limb. b. Separate stricture involving the mid common limb of the small bowel. c. Incarcerated incisional hernia. d. Marked distention of proximal small bowel. Date of procedure: 06/26/2021. Surgeon: Parrish Escobar MD. HISTORY: Melisa Stark is a 56-year-old female who is status post Macy-en-Y gastric bypass surgery in the s. She had a revision with subsequent problems with bowel obstruction. She presented to the emergency room with a several week history of severe postprandial abdominal pain associated with nausea and bloating. After preoperative evaluation and discussion of possible risks and possible complications, she wished to proceed with surgical procedure. HOSPITAL COURSE: Melisa had her surgery on 06/26/2021. She had no complications. Urine output was low, so she was given 2 boluses of lactated Ringer's during the night and 1 on 06/27/2021. Hemoglobin was 7.9 and she was given 1 unit of packed red blood cells. She was quite sleepy, so fentanyl MOTEL CLERK was decreased. During the evening of 06/27/2021, she received another unit of packed red blood cells and this morning her hemoglobin was 8.5, platelets 64. She was given another unit of packed red blood cells and K-Phos was replaced. On 06/29/2021, hemoglobin was 7.8 after receiving a total of 3 units of packed red blood cells, so she was given another unit of packed red blood cells along with magnesium 2 g IV q.6 hours. Oquendo catheter was discontinued. Her intake and output were good. Melisa's pain was controlled after the MOTEL CLERK was discontinued with oxycodone, Celebrex, and Tylenol. She was tolerating a step 3 gastric bypass diet and has had 2 bowel movements in the past 24 hours. Vital signs stable and Melisa was able to be discharged to home on 06/30/2021 without any complications. LABS ON DISCHARGE: WBC 4.4, hemoglobin 8.8, hematocrit 27, platelets 68. Potassium 4, phosphorus 3.8. BNP 465. PHYSICAL EXAMINATION: GENERAL: Melisa is a pleasant 56-year-old female. VITAL SIGNS: Height is 5 feet 7 inches, weight is 189 pounds, BMI is 29.6. 96.7, 73, 16, blood pressure 105/61. HEENT: Negative. NECK: Supple. HEART: Regular rate and rhythm. LUNGS: Clear. ABDOMEN: Aquacel dressing is on. This will be changed prior to discharge. Abdominal binder is on. EXTREMITIES: Without peripheral edema. DISPOSITION: Discharged to home. CONDITION: Stable and improving. FOLLOWUP APPOINTMENT: Ana Pearson PA-C, on 07/06/2021 at 9 a.m. HOME MEDICATIONS: 1. Celebrex 200 mg p.o. b.i.d. #28. 2. Oxycodone 5 mg p.o. q.4 hours p.r.n. pain, #12. 3. Zofran ODT 4 mg sublingual q.6 hours p.r.n. nausea, #30. 4. Tylenol 1000 mg q.6 hours scheduled for pain, may change to p.r.n. in 2 to 3 days. Resume home medications. Do not start naltrexone for at least 2 weeks after she has not needed to use any oxycodone. DIET: Step 3 gastric bypass diet. Drink 8 to 10 glasses of water a day. ACTIVITY: No lifting greater than 10 pounds for 6 weeks. OTHER ACTIVITY: Walk 6 times daily inside your house. Driving, do not drive for 1 week or within 8 hours of taking oxycodone. Shower/bathing: May shower. Wound incision care: 1. Keep operative site clean and dry. 2. Take off Aquacel dressing on Saturday07/03/2021. Wear abdominal binder for 6 weeks and longer if tolerated. Notify provider if any fever, increased pain, swelling, drainage, nausea or vomiting. SPECIAL INSTRUCTION: Use incentive spirometer 10 times every hour while awake for 1 week. /[id number]
[2021-06-30 08:41] VITALS: BP 131/80; PULSE 75
[2021-06-30] MEDS: Hydrochlorothiazide 25 MG Tab PO SCH (09:06)
[2021-06-30] MEDS: Celecoxib 200 MG Cap PO SCH (09:06)
[2021-06-30] MEDS: Docusate Sodium 100 MG Cap PO SCH (09:07)
== END 2021-06-30 10:00 | disposition home or self-care (01) | DRG 330 ==
LOC: JP.ED 04:27 → JP.MS 07:27
PROVIDERS: ADMIT Surgery; ATTEND Surgery
PROC: 0DB80ZZ Excision of Small Intestine, Open Approach (ICD-10-PCS; principal; 2021-06-26)
PROC: 0D7A0ZZ Dilation of Jejunum, Open Approach (ICD-10-PCS; 2021-06-26)
PROC: 0WQF0ZZ Repair Abdominal Wall, Open Approach (ICD-10-PCS; 2021-06-26)
PROC: 0DN80ZZ Release Small Intestine, Open Approach (ICD-10-PCS; 2021-06-26)
PROC: 3E0M05Z Introduction of Adhesion Barrier into Peritoneal Cavity, Open Approach (ICD-10-PCS; 2021-06-26)
PROC: 30233N1 Transfusion of Nonautologous Red Blood Cells into Peripheral Vein, Percutaneous Approach (ICD-10-PCS; 2021-06-27)
DX: K56.51 Intestinal adhesions [bands], with partial obstruction (principal); K43.0 Incisional hernia with obstruction, without gangrene; K91.2 Postsurgical malabsorption, not elsewhere classified; K55.9 Vascular disorder of intestine, unspecified; Z20.822 Contact with and (suspected) exposure to COVID-19; E53.8 Deficiency of other specified B group vitamins; E61.2 Magnesium deficiency; I10 Essential (primary) hypertension; M19.90 Unspecified osteoarthritis, unspecified site; F41.9 Anxiety disorder, unspecified; F32.A Depression, unspecified; Z98.84 Bariatric surgery status; Z79.899 Other long term (current) drug therapy
CPT/HCPCS: 36415; 36430; 74019; 74176; 74240; 80053; 82728; 83605; 83690; 83735; 83880; 84100; 85025; 85027; 86850; 86900; 86901; 86920; 86922; 88302; 88305; 88307; 94762; 96374; 96375; 96376; 99285-25; A9270-GY; C9113; J0171; J0330; J0694; J1100; J1170; J2001; J2020; J2060; J2185; J2405; J2704; J2710; J2795; J3010; J3410; J3411; J3420; J3475; J3490; J7030; J7050; J7120; J7121; P9016; Q9967; U0002